=== PATIENT | male | born 1950 | race African-American/Black ===

== ENCOUNTER 2017-03-14 08:05 | Inpatient (IN) | payer MEDICARE ==
[~2017-03-14] VITALS: Ht 182.9 cm; Wt 98.7 kg
[2017-03-14] MEDS ORDERED: multivitamin (08:23)
[2017-03-14] MEDS ORDERED: omega 3 (08:23)
[2017-03-14] MEDS ORDERED: ASPI81TA2 PO (08:23)
[2017-03-14] MEDS ORDERED: [UNRECOGNIZED DRUG - OTHER] (08:23)
--- NOTE | 2017-03-14 08:41 | PHYS DOC ---
Past Medical History Past Medical History: CAD, COPD, Hypertension Past Surgical History: Coronary Bypass Surgery Alcohol Use: None Drug Use: None Adult General Chief Complaint Chief Complaint: LOWER EXTREMITY SWELLING HPI HPI Patient is a 66 year old male who presents with family for bilateral lower extremity swelling over the past 2.5 weeks gradually worsening. States he also has exertional dyspnea and orthopnea worse over the same time period. He has slight resting dyspnea as well. States his swelling does not improve with laying in bed or leg elevation, but he does not frequently elevate his legs. States he has not followed regularly with a doctor for over 3 years and has not had an echocardiogram or seen a high tension tester in multiple years since CABG. Not currently taking antihypertensives. He denies chest pain, palpitations, diaphoresis, nausea or vomiting, fever or chills, numbness, tingling, weakness. He denies leg pain, cough, hemoptysis, injury. Review of Systems Review of Systems Constitutional: Denies fever or chills [] Eyes: Denies change in visual acuity, redness, or eye pain [] HENT: Denies nasal congestion or sore throat [] Respiratory: Denies cough [] Cardiovascular: No additional information not addressed in HPI [] GI: Denies abdominal pain, nausea, vomiting, bloody stools or diarrhea [] : Denies dysuria or hematuria [] Musculoskeletal: Denies back pain or joint pain [] Integument: Denies rash or skin lesions [] Neurologic: Denies headache, focal weakness or sensory changes [] Endocrine: Denies polyuria or polydipsia [] Current Medications Current Medications Allergies Allergies Allergies Coded Allergies Type Severity Reaction Last Updated Verified No Known Drug Allergies 03/14/17 No Physical Exam Physical Exam Constitutional: Well developed, well nourished, no acute distress, non-toxic appearance. [] HENT: Normocephalic, atraumatic, bilateral external ears normal, oropharynx moist, nose normal. [] Eyes: PERRLA, EOMI. [] Neck: Normal range of motion, supple. [] Cardiovascular: Regular tachycardia [] Lungs & Thorax: Mild bibasilar crackles and increased respiratory rate, no wheezing, speaking in full sentences [] Abdomen: Bowel sounds normal, soft, no tenderness. [] Skin: Warm, dry, no erythema, no rash. [] Back: No tenderness, no CVA tenderness. [] Extremities: No tenderness, ROM intact, 3+ bilateral lower extremity edema through thighs. [] Neurologic: Alert and oriented X 3, normal motor function, normal sensory function, no focal deficits noted. [] Psychologic: Affect normal, judgement normal, mood normal. [] Current Patient Data Vital Signs Vital Signs Date Time Temp Pulse Resp B/P Pulse Ox O2 Delivery O2 Flow Rate FiO2 03/14/17 08:11 97.6 121 20 150/93 97 Room Air 97.6 Lab Values Laboratory Tests Test 03/14/17 08:17 White Blood Count 5.1x10^3/uL (4.0-11.0) Red Blood Count 4.62x10^6/uL (4.30-5.70) Hemoglobin 14.3g/dL (13.0-17.5) Hematocrit 42.9% (39.0-53.0) Mean Corpuscular Volume 93fL (79-100) Mean Corpuscular Hemoglobin 31pg (25-35) Mean Corpuscular Hemoglobin Concent 33g/dL (31-37) Red Cell Distribution Width 16.4% (11.5-14.5) H Platelet Count 329x10^3/uL (140-400) Neutrophils (%) (Auto) 50% (31-73) Lymphocytes (%) (Auto) 38% (24-48) Monocytes (%) (Auto) 10% (0-9) H Eosinophils (%) (Auto) 1% (0-3) Basophils (%) (Auto) 1% (0-3) Neutrophils # (Auto) 2.5x10^3uL (1.8-7.7) Lymphocytes # (Auto) 1.9x10^3/uL (1.0-4.8) Monocytes # (Auto) 0.5x10^3/uL (0.0-1.1) Eosinophils # (Auto) 0.1x10^3/uL (0.0-0.7) Basophils # (Auto) 0.0x10^3/uL (0.0-0.2) Sodium Level 138mmol/L (136-145) Potassium Level 3.8mmol/L (3.5-5.1) Chloride Level 104mmol/L (98-107) Carbon Dioxide Level 28mmol/L (21-32) Anion Gap 6 (6-14) Blood Urea Nitrogen 18mg/dL (8-26) Creatinine 1.1mg/dL (0.7-1.3) Estimated GFR (Cockcroft-Gault) 66.6 Glucose Level 102mg/dL (70-99) H Calcium Level 8.9mg/dL (8.5-10.1) Total Bilirubin 0.4mg/dL (0.2-1.0) Direct Bilirubin 0.2mg/dL (0.0-0.2) Aspartate Amino Transferase (AST) 33U/L (15-37) Alanine Aminotransferase (ALT) 48U/L (16-63) Alkaline Phosphatase 57U/L (46-116) YJ-Tsf-D-Type Natriuretic Peptide 6047pg/mL (0-124) H Total Protein 7.0g/dL (6.4-8.2) Albumin 3.0g/dL (3.4-5.0) L Laboratory Tests 03/14/17 08:17 Laboratory Tests 03/14/17 08:17 EKG EKG EKG as interpreted by me as sinus tachycardia with interventricular block, rate 103, no ST-T changes, LA 174, QTc 474, no ectopy Radiology/Procedures Radiology/Procedures Chest x-ray as interpreted by me showing cardiomegaly and mild pulmonary vascular congestion bilaterally, no effusions or focal infiltrates Course & Med Decision Making Course & Med Decision Making Pertinent Labs and Imaging studies reviewed. (See chart for details) Has elevated proBNP and low albumin suggestive of multifactorial swelling, but highest concern is for undiagnosed CHF with exacerbation. Will admit for further workup and treatment. Discussed case with Dr. Salmon, who will admit. Cardiology consult placed. Warren Disclaimer Dragon Disclaimer This electronic medical record was generated, in whole or in part, using a voice recognition dictation system. Departure Departure Impression: Primary Impression: CHF exacerbation Disposition: ADMITTED INPATIENT Condition: STABLE Problem Qualifiers Primary Impression: CHF exacerbation Congestive heart failure type: unspecified congestive heart failure type Qualified Code: I50.9 - Heart failure, unspecified Albina GAMEZ MD Mar 14, 2017 08:41
[2017-03-14 08:49] LABS: CALCIUM 8.9 mg/dL (8.5-10.1); CREATININE 1.1 mg/dL (0.7-1.3); GFR 66.6; POTASSIUM 3.8 mmol/L (3.5-5.1)
--- NOTE | 2017-03-14 08:49 | RAD ---
2 view CXR: Clinical indications: Dyspnea. Lower extremity swelling of the groin for 2 weeks. Worsening last week. History of COPD and hypertension and smoking. Comparison: December 19, 2007.. Findings: No acute lung infiltrate or pleural effusion or pulmonary edema or lung mass or pneumothorax is seen. The heart size has increased in size. Sternotomy has been performed in the interim. The pulmonary vasculature, mediastinum and both kin are unremarkable. The osseous structures appear intact. Impression: Increase in heart size. No acute lung infiltrate..
--- NOTE | 2017-03-14 08:52 | EKG ---
[facility] [address] [place] [address] Test Date: 2017-03-14 Test Time: 08:26:41 Pat Name: JOCY BOWEN Department: Room: Gender: Manager Call Center: : [id number] Requested By: Albina GAMEZ Order Number: [id number] Reading MD: Adolfo Cole Measurements Intervals [place] Rate: 103 P: 51 NH: 174 QRS: -57 QRSD: 130 T: 104 QT: 360 QTc: 474 Interpretive Statements SINUS TACHYCARDIA ABNORMAL LEFT AXIS DEVIATION lafb Electronically Signed On 03-17-2017 9:53:35 CDT by Adolfo Cole
[2017-03-14 08:56] LABS: BASO % 1 % (0-3); DIRECT BILIRUBIN 0.2 mg/dL (0.0-0.2); EOS % 1 % (0-3); HEMATOCRIT 42.9 % (39.0-53.0); HEMOGLOBIN 14.3 g/dL (13.0-17.5); LYMPH # 1.9 x10^3/uL (1.0-4.8); LYMPH % 38 % (24-48); MEAN CORPUSCULAR HEMOGLOBIN 31 pg (25-35); MEAN CORPUSCULAR HGB CONC 33 g/dL (31-37); MEAN CORPUSCULAR VOLUME 93 fL (79-100); MONO % 10 % (0-9); NEUT % 50 % (31-73); PLATELET COUNT 329 x10^3/uL (140-400); RED BLOOD COUNT 4.62 x10^6/uL (4.30-5.70); RED CELL DISTRIBUTION WIDTH 16.4 % (11.5-14.5); TOTAL BILIRUBIN 0.4 mg/dL (0.2-1.0); WHITE BLOOD COUNT 5.1 x10^3/uL (4.0-11.0)
[2017-03-14] MEDS ORDERED: ONDANSETRON PF 4 MG/2 ML VIAL. IV PRN ×2 (09:30→10:30)
[2017-03-14] MEDS ORDERED: fentaNYL PF VIAL 100 MCG/2 ML VIAL IV PRN (09:30)
[2017-03-14] MEDS ORDERED: ACETAMINOPHEN 325 MG TABLET. PO PRN ×2 (09:30→10:30)
[2017-03-14] MEDS ORDERED: FUROSEMIDE 20 MG/2 ML VIAL. IVP ONE (09:30)
--- NOTE | 2017-03-14 10:27 | PDOC1 ---
History and Physical Current Problem List Problem List Problems Medical Problems: (1) CHF exacerbation Status: Acute Current Medications Current Medications Current Medications Medications (Trade) Dose Ordered Sig/Ssuu Start Time Stop Time Status Last Admin Dose Admin Acetaminophen (Tylenol) 650 mg PRN Q4HRS PRN 03/14/17 09:30 03/15/17 09:29 Fentanyl Citrate (Fentanyl 2ml Vial) 50 mcg PRN Q2HR PRN 03/14/17 09:30 03/15/17 09:29 Furosemide (Lasix) 20 mg 1X ONCE 03/14/17 09:30 03/14/17 09:31 DC 03/14/17 09:37 20 MG Ondansetron HCl (Zofran) 4 mg PRN Q8HRS PRN 03/14/17 09:30 03/15/17 09:29 Allergies Allergies Allergies Coded Allergies Type Severity Reaction Last Updated Verified No Known Drug Allergies 03/14/17 No ROS Review of System CONSTITUTIONAL: No fever or chills EYES: No recent changes SKIN: No rash or itching CARDIOVASCULAR: sob and edema RESPIRATORY: No SOB or cough GASTROINTESTINAL: No nausea, vomiting or abdominal pain NEUROLOGICAL: No headaches or weakness ENDOCRINE: No cold or heat intolerance GENITOURINARY: No urgency or frequency of urination MUSCULOSKELETAL: No back pain or joint pain LYMPHATICS: No enlarged lymph nodes PSYCHIATRIC: No anxiety or depression Physical Exam Physical Exam GEN.: No apparent distress. Alert and oriented. HEENT: Head is normocephalic, atraumatic NECK: Supple. no lymphadenopathy LUNGS: Clear to auscultation. normal airflow HEART: RRR, S1, S2 present. Peripheral pulses intact ABDOMEN: Soft, nontender. Positive bowel sounds. EXTREMITIES: + 3 edema, extended to abdomen and testicle NEUROLOGIC: Normal speech, normal tone PSYCHIATRIC: Normal affect, normal mood. SKIN: dry, Vitals Vitals Vital Signs Date Time Temp Pulse Resp B/P Pulse Ox O2 Delivery O2 Flow Rate FiO2 03/14/17 08:11 97.6 121 20 150/93 97 Room Air 97.6 Labs Labs Laboratory Tests Test 03/14/17 08:17 White Blood Count 5.1x10^3/uL (4.0-11.0) Red Blood Count 4.62x10^6/uL (4.30-5.70) Hemoglobin 14.3g/dL (13.0-17.5) Hematocrit 42.9% (39.0-53.0) Mean Corpuscular Volume 93fL (79-100) Mean Corpuscular Hemoglobin 31pg (25-35) Mean Corpuscular Hemoglobin Concent 33g/dL (31-37) Red Cell Distribution Width 16.4% (11.5-14.5) Platelet Count 329x10^3/uL (140-400) Neutrophils (%) (Auto) 50% (31-73) Lymphocytes (%) (Auto) 38% (24-48) Monocytes (%) (Auto) 10% (0-9) Eosinophils (%) (Auto) 1% (0-3) Basophils (%) (Auto) 1% (0-3) Neutrophils # (Auto) 2.5x10^3uL (1.8-7.7) Lymphocytes # (Auto) 1.9x10^3/uL (1.0-4.8) Monocytes # (Auto) 0.5x10^3/uL (0.0-1.1) Eosinophils # (Auto) 0.1x10^3/uL (0.0-0.7) Basophils # (Auto) 0.0x10^3/uL (0.0-0.2) Sodium Level 138mmol/L (136-145) Potassium Level 3.8mmol/L (3.5-5.1) Chloride Level 104mmol/L (98-107) Carbon Dioxide Level 28mmol/L (21-32) Anion Gap 6 (6-14) Blood Urea Nitrogen 18mg/dL (8-26) Creatinine 1.1mg/dL (0.7-1.3) Estimated GFR (Cockcroft-Gault) 66.6 Glucose Level 102mg/dL (70-99) Calcium Level 8.9mg/dL (8.5-10.1) Total Bilirubin 0.4mg/dL (0.2-1.0) Direct Bilirubin 0.2mg/dL (0.0-0.2) Aspartate Amino Transf (AST/SGOT) 33U/L (15-37) Alanine Aminotransferase (ALT/SGPT) 48U/L (16-63) Alkaline Phosphatase 57U/L (46-116) SM-Pbe-J-Type Natriuretic Peptide 6047pg/mL (0-124) Total Protein 7.0g/dL (6.4-8.2) Albumin 3.0g/dL (3.4-5.0) Laboratory Tests Test 03/14/17 08:17 White Blood Count 5.1x10^3/uL (4.0-11.0) Red Blood Count 4.62x10^6/uL (4.30-5.70) Hemoglobin 14.3g/dL (13.0-17.5) Hematocrit 42.9% (39.0-53.0) Mean Corpuscular Volume 93fL (79-100) Mean Corpuscular Hemoglobin 31pg (25-35) Mean Corpuscular Hemoglobin Concent 33g/dL (31-37) Red Cell Distribution Width 16.4% (11.5-14.5) Platelet Count 329x10^3/uL (140-400) Neutrophils (%) (Auto) 50% (31-73) Lymphocytes (%) (Auto) 38% (24-48) Monocytes (%) (Auto) 10% (0-9) Eosinophils (%) (Auto) 1% (0-3) Basophils (%) (Auto) 1% (0-3) Neutrophils # (Auto) 2.5x10^3uL (1.8-7.7) Lymphocytes # (Auto) 1.9x10^3/uL (1.0-4.8) Monocytes # (Auto) 0.5x10^3/uL (0.0-1.1) Eosinophils # (Auto) 0.1x10^3/uL (0.0-0.7) Basophils # (Auto) 0.0x10^3/uL (0.0-0.2) Sodium Level 138mmol/L (136-145) Potassium Level 3.8mmol/L (3.5-5.1) Chloride Level 104mmol/L (98-107) Carbon Dioxide Level 28mmol/L (21-32) Anion Gap 6 (6-14) Blood Urea Nitrogen 18mg/dL (8-26) Creatinine 1.1mg/dL (0.7-1.3) Estimated GFR (Cockcroft-Gault) 66.6 Glucose Level 102mg/dL (70-99) Calcium Level 8.9mg/dL (8.5-10.1) Total Bilirubin 0.4mg/dL (0.2-1.0) Direct Bilirubin 0.2mg/dL (0.0-0.2) Aspartate Amino Transf (AST/SGOT) 33U/L (15-37) Alanine Aminotransferase (ALT/SGPT) 48U/L (16-63) Alkaline Phosphatase 57U/L (46-116) SI-Eqr-B-Type Natriuretic Peptide 6047pg/mL (0-124) Total Protein 7.0g/dL (6.4-8.2) Albumin 3.0g/dL (3.4-5.0) VTE Prophylaxis Ordered VTE Prophylaxis Devices: Yes VTE Pharmacological Prophylaxi: Yes REBECCA HELLER MD Mar 14, 2017 10:26
[2017-03-14] MEDS ORDERED: ALBUTEROL SULFATE 2.5 MG/3 ML NEBU. NEB PRN (10:30)
[2017-03-14] MEDS ORDERED: HYDROcodone/APAP 5/325MG 1 TAB TABLET PO PRN (10:30)
[2017-03-14] MEDS ORDERED: hydrALAZINE 20 MG/ML VIAL. IVP PRN (10:30)
[2017-03-14] MEDS ORDERED: METOPROLOL SUCC 24HR ER 25 MG TAB.ER.24H. PO ONE (11:00)
--- NOTE | 2017-03-14 11:01 | PDOC2 ---
CARDIOLOGY CONSULT NOTE CHEIF COMPLAINT: Swelling in legs Problems: HPI: 66 y.o male with pmhx as noted below presenting for lower ext edema. Last 3 months he has has progressive lower ext edema that has now progressed to testicles. He denies any chest pain but does have exertional dyspnea, NYHA class 2-3. Denies any syncope or palpitations. Reports that he has not seen a epitaxial reactor operator or PCP for several years. PMHX: CAD s/p CABG in 2009 SOCHX: Lives by himself, but lives separately from No alcohol, tob or illicits. He is employed FAMHX: [place] CURRENT MEDS: No home CV meds. ALLERGIES: Allergies Coded Allergies Type Severity Reaction Last Updated Verified No Known Drug Allergies 03/14/17 No ROS: Negative for 08/28 systems reviewed unless otherwise noted above in HPI. PHYSICAL EXAM: Vital Signs: Vital Signs Date Time Temp Pulse Resp B/P Pulse Ox O2 Delivery O2 Flow Rate FiO2 03/14/17 08:11 97.6 121 20 150/93 97 Room Air 97.6 Physical Exam: Gen: A/O x 3. CVS: Tachycardia, no m/r/g PULM: Tachypneic, no sign rales ABD: Obese, NT/ND +BS EXT: 3+ pitting edema from the ankle to the hips Swollen testicles Non focal neuro exam. normal mood and affect. DIAGNOSTIC TESTIN. SR with LAFB BNP > 6000 ASSESSMENT: 1. Acute decompensated systolic and diastolic HF. 2. CAD s/p CABG PLAN: -Continue aggressive diuresis. -He has adequate perfusion based on exam and vitals -Check echo, depending on results, will likely need heart cath. -Start low dose Toprol XL for now, initiate ho-inh in a.m after diuresis and monitoring of renal function. Will follow. Discussed issues with patient and family. TABATHA CARRIZALES MD Mar 14, 2017 11:01
[2017-03-14 11:26] VITALS: BP 138/93
[2017-03-14] MEDS ORDERED: FUROSEMIDE 40 MG/4 ML VIAL. IVP ONE (14:00)
[2017-03-14 14:54] VITALS: BP 119/80
[2017-03-14] MEDS: ENOXAPARIN 40 MG/0.4 ML SYRINGE. SQ SCH (15:18)
--- NOTE | 2017-03-14 18:09 | HP ---
ADMIT DATE: 03/14/2017 CHIEF COMPLAINT: Bilateral lower extremity swelling. HISTORY OF PRESENT ILLNESS: A 66-year-old -[place] male patient with prior history of coronary artery disease and CABG who presented to the ER with complaints of progressive swelling of bilateral lower extremities. Symptoms started a few weeks ago. However, for last 2 weeks, symptoms are gradually getting worse associated with exertional dyspnea and orthopnea. This swelling extended from bilateral lower extremities, feet to testicles and the abdomen. The patient has never seen a doctor for nearly 3 years and previously was diagnosed with coronary artery disease, CABG. Later, he did not see any doctors. He denies any chest pain, syncope, or palpitations. The patient received IV Lasix in the ER. His symptoms improved, and his initial EKG did not show any acute ST-T wave changes. PAST MEDICAL HISTORY: Coronary artery disease, COPD, hypertension, and CABG. PERSONAL HISTORY: Lives by himself, . No smoking, no alcohol, no drug abuse. FAMILY HISTORY: Unknown to the patient. ALLERGIES: NKDA. REVIEW OF SYSTEMS: Please see my electronic H and P. PHYSICAL EXAMINATION: Please see my electronic H and P. LABORATORY DATA: Chemistry within normal limits. BNP is 6047. Hematology: CBC within normal limits. IMAGING STUDIES: Chest x-ray: Increase in heart size and no acute findings seen. EKG was personally reviewed. Tachycardia. No acute ST-T wave changes seen. ASSESSMENT AND PLAN: 1. Suspected acute systolic congestive heart failure. 2. History of coronary artery disease and hypertension. PLAN: 1. The patient has been admitted to the hospital for cardiac workup. We will give him IV Lasix and continue IV Lasix daily. 2. Monitor intake and output. 3. Replace electrolytes, especially potassium and magnesium. 4. Daily weights. 5. Cardiology has been consulted and echocardiogram in the a.m. 6. Possible cardiac catheterization once medical symptoms improve. 7. He has been started on metoprolol. 8. P.r.n. breathing treatments. 9. Deep venous thrombosis prophylaxis with Lovenox. 10. Physical therapy and occupational therapy. REBECCA HELLER MD DR: JEFFREY/shayne JOB#: [id number] / [id number] MTDD
[2017-03-14 20:10] VITALS: BP 121/74
[2017-03-14 23:45] VITALS: BP 113/75
[2017-03-15 03:50] VITALS: BP 112/78
[2017-03-15 07:26] LABS: BASO % 1 % (0-3); EOS % 1 % (0-3); HEMATOCRIT 39.6 % (39.0-53.0); HEMOGLOBIN 13.1 g/dL (13.0-17.5); LYMPH # 1.3 x10^3/uL (1.0-4.8); LYMPH % 28 % (24-48); MEAN CORPUSCULAR HEMOGLOBIN 31 pg (25-35); MEAN CORPUSCULAR HGB CONC 33 g/dL (31-37); MEAN CORPUSCULAR VOLUME 94 fL (79-100); MONO % 10 % (0-9); NEUT % 60 % (31-73); PLATELET COUNT 279 x10^3/uL (140-400); RED BLOOD COUNT 4.22 x10^6/uL (4.30-5.70); RED CELL DISTRIBUTION WIDTH 15.9 % (11.5-14.5); WHITE BLOOD COUNT 4.7 x10^3/uL (4.0-11.0)
[2017-03-15 07:50] VITALS: BP 104/65
[2017-03-15 07:51] LABS: CALCIUM 8.9 mg/dL (8.5-10.1); CREATININE 1.1 mg/dL (0.7-1.3); GFR 80.5; POTASSIUM 3.8 mmol/L (3.5-5.1)
--- NOTE | 2017-03-15 08:15 | ACF ---
Admission Forms Criteria HEART FAILURE Clinical Indications for Admission to Inpatient Care (Place 'X' for any and all applicable criteria): Admission is indicated by ANY ONE of the following(1)(2)(3)(4): [ ]I. Severe electrolyte abnormalities requiring inpatient care(9) [ ]II. Hemodynamic instability [ ]III. Anasarca [ ]IV. Acute cardiac ischemia causing or associated with failure (Also use Angina or Myocardial Infarction as appropriate) [ ]V. Cardiac arrhythmias of immediate concern [ ]. Precipitating cause for acute decompensation (eg, pneumonia, pulmonary embolism) requires inpatient care [ ]VII. Pulmonary edema that is very severe (eg, mechanical ventilation needed, imminent or likely, need for 100% oxygen to keep oxygen saturation above 90%) [ ]VIII. Inpatient admission required rather than observation care (Also use Heart Failure: Observation Care as appropriate) because of ANY ONE of the following: [ ]a) Pulmonary edema that is severe or worsening as indicated by ALL of the following: [ ]i) New need for oxygen therapy to keep oxygen saturation above 90% (or increased FiO2 need from baseline) [ ]ii) Has not improved sufficiently with emergency department or observation care IV diuretics or other heart failure treatments[C] [ ]b) Cognitive impairment that is severe or persistent [ ]c) Increased creatinine (new on laboratory test) with reduction of more than 50% in estimated glomerular filtration rate from baseline. [ ]d) Acute renal insufficiency (progressively (ongoing) rising creatinine (known from past laboratory test) with reduction of more than 25% in estimated glomerular filtration rate from baseline) [ ]e) Acute peripheral ischemia (eg, pulseless, cool, mottled, or cyanotic extremity) [ ]f) Acute renal failure [ ]g) Supplemental O2 or respiratory treatment for >24 hr that are performable only in acute inpatient setting [ ]h) Pulmonary artery catheter monitoring [ ]i) Other condition, treatment or monitoring requiring inpatient admission [X]IX. Contraindications and/or Inappropriate clinical situations for Observational Care in patients with Heart Failure, when ANY ONE of the following is required: [ ]a) Patient with High risk of cardiac embolism (e.g, patients with previous cardiac embolism, LVEF < 40%, age >75 and patients with prosthetic valve) 18 [ ]b) Patient with Moderate risk including DM patient, CAD and patient aged 65-75 [ ]c) Patient with any change in cardiac biomarker especially troponin should be managed as high risk in an inpatient setting 19 [ ]d) Physician judgement irrespective of ECG and other diagnostic findings 20 [ ]e) Patients with hyponatremia have high risk for mortality and require more extensive care and length of stay 21 [X]f) Need for large volume diuresis 21 [ ]g) Presence of renal insufficiency or hypotension limiting speed of diuresis 21 [ ]h) Acute cardiac Ischemia in the elderly 21 [ ]i) Patients with a 30 day risk of mortality based on a multidimensional prognostic index (MPI) [J,]21 [ ]X. General contraindications and/or Inappropriate clinical situations for Observational Care in patients with Heart Failure, when ANY ONE of the following is required: [ ]a) Prediction of prolongation of LOS based on ANY ONE of the following may be considered as a contraindication for observational care 2, 3, 4, 5, 6, 7, 8 , 9, 10, 11 [ ]i) Age > 65 yrs. [ ]ii) Patient arriving by ambulance [ ]iii) Patient with high acuity [ ]iv) Patient requiring vital sign monitoring [ ]v) Patient on IV medication [ ]b) Systolic blood pressures 180mmHg 3,12 [ ]c) Patient with altered mental status including delirium and other alteration of consciousness, (3) [ ]d) Patient whose discharge disposition will be to a [place] [facility] home or rehabilitation home should not be managed in Emergency Department Observation Unit. CMS rule requires 3 days hospital stay before such placement.3,13 [ ]e) Patient with failure to thrive due to broad array of etiologies 3,16,17 [ ]f) Inability to ambulate 3,14 Extended stay beyond goal length of stay may be needed for(1)(3)(21)(25): [ ]a) Cardiac ischemia, confirmed or suspected as precipitant [ ]b) Cardiogenic shock or refractory pulmonary edema [ ]c) Acute kidney injury or renal failure [ ]d) Respiratory failure (eg, need for noninvasive or invasive mechanical ventilation) (23) [ ]e) Concomitant pneumonia or significant electrolyte abnormality (eg, severe hyponatremia) [ ]f) Newly diagnosed (new onset) atrial fibrillation [ ]g) Stage IV chronic kidney disease (estimated glomerular filtration rate of less than 30 mL/min/1.73m2 (0.50 mL/sec/1.73m2), and not previously on chronic dialysis The original [facility] content created by [facility] has been revised. The portions of the content which have been revised are identified through the use of italic text or in bold, and [facility] has neither reviewed nor approved the modified material. All other unmodified content is copyright [facility]. Please see references footnoted in the original [facility] edition 2016 Admission Criteria Met?: Yes ANNA URENA March 15, 2017 08:15
[2017-03-15] MEDS: METOPROLOL SUCC 24HR ER 25 MG TAB.ER.24H. PO SCH (09:29)
[2017-03-15] MEDS: FUROSEMIDE 40 MG/4 ML VIAL. IVP SCH (09:29)
--- NOTE | 2017-03-15 10:06 | PDOC ---
ZAC SANFORD ELECTRICAL PROSPECTOR 03/15/17 1006: CARDIO Progress Notes Date and Time Date of Service 03/15/2017 Time of Evaluation 1000 Subjective Subjective: No Chest Pain, No shortness of breath, No Palpitations, No Dizziness, Other (SOA better, feels better today) Vitals Vitals Vital Signs Date Time Temp Pulse Resp B/P Pulse Ox O2 Delivery O2 Flow Rate FiO2 03/15/17 09:29 80 104/65 03/15/17 08:15 Room Air 03/15/17 07:50 98.6 17 96 98.6 Weight Weight [ ] Input and Output Intake and Output Intake and Output 03/15/17 07:00 Intake Total 1550 ml Output Total 4750 ml Balance -3200 ml Intake Oral 1550 ml Output Urine Total 4750 ml # Voids 1 Laboratory Labs Laboratory Tests Test 03/15/17 07:00 White Blood Count 4.7x10^3/uL (4.0-11.0) Red Blood Count 4.22x10^6/uL (4.30-5.70) Hemoglobin 13.1g/dL (13.0-17.5) Hematocrit 39.6% (39.0-53.0) Mean Corpuscular Volume 94fL (79-100) Mean Corpuscular Hemoglobin 31pg (25-35) Mean Corpuscular Hemoglobin Concent 33g/dL (31-37) Red Cell Distribution Width 15.9% (11.5-14.5) Platelet Count 279x10^3/uL (140-400) Neutrophils (%) (Auto) 60% (31-73) Lymphocytes (%) (Auto) 28% (24-48) Monocytes (%) (Auto) 10% (0-9) Eosinophils (%) (Auto) 1% (0-3) Basophils (%) (Auto) 1% (0-3) Neutrophils # (Auto) 2.8x10^3uL (1.8-7.7) Lymphocytes # (Auto) 1.3x10^3/uL (1.0-4.8) Monocytes # (Auto) 0.5x10^3/uL (0.0-1.1) Eosinophils # (Auto) 0.1x10^3/uL (0.0-0.7) Basophils # (Auto) 0.0x10^3/uL (0.0-0.2) Sodium Level 141mmol/L (136-145) Potassium Level 3.8mmol/L (3.5-5.1) Chloride Level 105mmol/L (98-107) Carbon Dioxide Level 29mmol/L (21-32) Anion Gap 7 (6-14) Blood Urea Nitrogen 16mg/dL (8-26) Creatinine 1.1mg/dL (0.7-1.3) Estimated GFR (Cockcroft-Gault) 80.5 Glucose Level 124mg/dL (70-99) Calcium Level 8.9mg/dL (8.5-10.1) Physical Exam HEENT: Neck Supple W Full Motion Chest: Symmetric LUNGS: Other (diminsihed bases with crackles) Heart: S1S2, RRR (SR with PVCs and PACs), other (distant heart sounds) Abdomen: Soft N/T Extremities: No Calf Tenderness, Other (3-4+ bilateral LE pitting edema) Neurology: alert, oriented, follow commands Assessment Assessment 1. Acute on chronic combined systolic/diastolic CHF: symptoms improved 2. CAD: CABG in the past. CP free. No recent stress test and cardiology follow ups. 3. AECOPD: no inhalers, per PCP 4. HTN: controlled 5. Likely poor compliance: has not seen tar heel for about >3 yrs Recommendations 1. Plan to convert to PO lasix tomorrow 2. Toprol started. Will reeval for ACEi tomorrow 3. Lipids, TSH, troponin 4. Further recommendation pending TTE result 5. Restart ASA. 6. Will consider for ischemic worup inpt vs outpt. pending other testings. TABATHA CARRIZALES MD 03/15/17 2228: CARDIO Progress Notes Plan Plan Pt. seen and examined. Agree with above HAT BRIM CURLER note. No acute events. Persistent edema. Echo with severe LV dysfunction. Will plan for cath in a.m. Discussed r/b/a with patient and family, he wishes to proceed. ZAC SANFORD APRN March 15, 2017 10:06 TABATHA CARRIZALES MD March 15, 2017 22:28
[2017-03-15 12:03] VITALS: BP 105/65
--- NOTE | 2017-03-15 12:55 | PDOC ---
PROGRESS NOTES Chief Complaint Chief Complaint 1. acute systolic congestive heart failure. 2. History of coronary artery disease post CABG 3. htn 4. COPD plan: FU WITH Card echo pending on lasix 40mg iv daily for now pt has no PCP, dr. Frank info given daily weight, check in and out dvt ppx History of Present Illness History of Present Illness mild exertional sob bl leg edema Vitals Vitals Vital Signs Date Time Temp Pulse Resp B/P Pulse Ox O2 Delivery O2 Flow Rate FiO2 03/15/17 12:03 98.4 55 17 105/65 96 Room Air 98.4 Physical Exam General: Alert, Oriented X3, Cooperative Heart: Regular rate, Normal S1, Normal S2 Lungs: Crackles (bl mild) Extremities: No clubbing, No cyanosis, Other (bl leg 3 + edema) Skin: No breakdown Labs LABS Laboratory Tests Test 03/15/17 07:00 White Blood Count 4.7x10^3/uL (4.0-11.0) Red Blood Count 4.22x10^6/uL (4.30-5.70) Hemoglobin 13.1g/dL (13.0-17.5) Hematocrit 39.6% (39.0-53.0) Mean Corpuscular Volume 94fL (79-100) Mean Corpuscular Hemoglobin 31pg (25-35) Mean Corpuscular Hemoglobin Concent 33g/dL (31-37) Red Cell Distribution Width 15.9% (11.5-14.5) Platelet Count 279x10^3/uL (140-400) Neutrophils (%) (Auto) 60% (31-73) Lymphocytes (%) (Auto) 28% (24-48) Monocytes (%) (Auto) 10% (0-9) Eosinophils (%) (Auto) 1% (0-3) Basophils (%) (Auto) 1% (0-3) Neutrophils # (Auto) 2.8x10^3uL (1.8-7.7) Lymphocytes # (Auto) 1.3x10^3/uL (1.0-4.8) Monocytes # (Auto) 0.5x10^3/uL (0.0-1.1) Eosinophils # (Auto) 0.1x10^3/uL (0.0-0.7) Basophils # (Auto) 0.0x10^3/uL (0.0-0.2) Sodium Level 141mmol/L (136-145) Potassium Level 3.8mmol/L (3.5-5.1) Chloride Level 105mmol/L (98-107) Carbon Dioxide Level 29mmol/L (21-32) Anion Gap 7 (6-14) Blood Urea Nitrogen 16mg/dL (8-26) Creatinine 1.1mg/dL (0.7-1.3) Estimated GFR (Cockcroft-Gault) 80.5 Glucose Level 124mg/dL (70-99) Calcium Level 8.9mg/dL (8.5-10.1) Review of Systems Review of Systems no fever, chills, chest pain Assessment and Plan Assessmemt and Plan Problems Medical Problems: (1) CHF exacerbation Status: Acute Problems: Comment Review of Relevant I have reviewed the following items rell (where applicable) has been applied. Labs Laboratory Tests Test 03/14/17 08:17 03/15/17 07:00 White Blood Count 5.1x10^3/uL (4.0-11.0) 4.7x10^3/uL (4.0-11.0) Red Blood Count 4.62x10^6/uL (4.30-5.70) 4.22x10^6/uL (4.30-5.70) Hemoglobin 14.3g/dL (13.0-17.5) 13.1g/dL (13.0-17.5) Hematocrit 42.9% (39.0-53.0) 39.6% (39.0-53.0) Mean Corpuscular Volume 93fL (79-100) 94fL (79-100) Mean Corpuscular Hemoglobin 31pg (25-35) 31pg (25-35) Mean Corpuscular Hemoglobin Concent 33g/dL (31-37) 33g/dL (31-37) Red Cell Distribution Width 16.4% (11.5-14.5) 15.9% (11.5-14.5) Platelet Count 329x10^3/uL (140-400) 279x10^3/uL (140-400) Neutrophils (%) (Auto) 50% (31-73) 60% (31-73) Lymphocytes (%) (Auto) 38% (24-48) 28% (24-48) Monocytes (%) (Auto) 10% (0-9) 10% (0-9) Eosinophils (%) (Auto) 1% (0-3) 1% (0-3) Basophils (%) (Auto) 1% (0-3) 1% (0-3) Neutrophils # (Auto) 2.5x10^3uL (1.8-7.7) 2.8x10^3uL (1.8-7.7) Lymphocytes # (Auto) 1.9x10^3/uL (1.0-4.8) 1.3x10^3/uL (1.0-4.8) Monocytes # (Auto) 0.5x10^3/uL (0.0-1.1) 0.5x10^3/uL (0.0-1.1) Eosinophils # (Auto) 0.1x10^3/uL (0.0-0.7) 0.1x10^3/uL (0.0-0.7) Basophils # (Auto) 0.0x10^3/uL (0.0-0.2) 0.0x10^3/uL (0.0-0.2) Sodium Level 138mmol/L (136-145) 141mmol/L (136-145) Potassium Level 3.8mmol/L (3.5-5.1) 3.8mmol/L (3.5-5.1) Chloride Level 104mmol/L (98-107) 105mmol/L (98-107) Carbon Dioxide Level 28mmol/L (21-32) 29mmol/L (21-32) Anion Gap 6 (6-14) 7 (6-14) Blood Urea Nitrogen 18mg/dL (8-26) 16mg/dL (8-26) Creatinine 1.1mg/dL (0.7-1.3) 1.1mg/dL (0.7-1.3) Estimated GFR (Cockcroft-Gault) 66.6 80.5 Glucose Level 102mg/dL (70-99) 124mg/dL (70-99) Calcium Level 8.9mg/dL (8.5-10.1) 8.9mg/dL (8.5-10.1) Total Bilirubin 0.4mg/dL (0.2-1.0) Direct Bilirubin 0.2mg/dL (0.0-0.2) Aspartate Amino Transf (AST/SGOT) 33U/L (15-37) Alanine Aminotransferase (ALT/SGPT) 48U/L (16-63) Alkaline Phosphatase 57U/L (46-116) UL-Nhy-K-Type Natriuretic Peptide 6047pg/mL (0-124) Total Protein 7.0g/dL (6.4-8.2) Albumin 3.0g/dL (3.4-5.0) Laboratory Tests Test 03/15/17 07:00 White Blood Count 4.7x10^3/uL (4.0-11.0) Red Blood Count 4.22x10^6/uL (4.30-5.70) Hemoglobin 13.1g/dL (13.0-17.5) Hematocrit 39.6% (39.0-53.0) Mean Corpuscular Volume 94fL (79-100) Mean Corpuscular Hemoglobin 31pg (25-35) Mean Corpuscular Hemoglobin Concent 33g/dL (31-37) Red Cell Distribution Width 15.9% (11.5-14.5) Platelet Count 279x10^3/uL (140-400) Neutrophils (%) (Auto) 60% (31-73) Lymphocytes (%) (Auto) 28% (24-48) Monocytes (%) (Auto) 10% (0-9) Eosinophils (%) (Auto) 1% (0-3) Basophils (%) (Auto) 1% (0-3) Neutrophils # (Auto) 2.8x10^3uL (1.8-7.7) Lymphocytes # (Auto) 1.3x10^3/uL (1.0-4.8) Monocytes # (Auto) 0.5x10^3/uL (0.0-1.1) Eosinophils # (Auto) 0.1x10^3/uL (0.0-0.7) Basophils # (Auto) 0.0x10^3/uL (0.0-0.2) Sodium Level 141mmol/L (136-145) Potassium Level 3.8mmol/L (3.5-5.1) Chloride Level 105mmol/L (98-107) Carbon Dioxide Level 29mmol/L (21-32) Anion Gap 7 (6-14) Blood Urea Nitrogen 16mg/dL (8-26) Creatinine 1.1mg/dL (0.7-1.3) Estimated GFR (Cockcroft-Gault) 80.5 Glucose Level 124mg/dL (70-99) Calcium Level 8.9mg/dL (8.5-10.1) Medications Current Medications Furosemide (Lasix) 20 mg 1X ONCE IVP Last administered on 03/14/17 09:37; Start 03/14/17 at 09:30; Stop 03/14/17 at 09:31; Status DC Ondansetron HCl (Zofran) 4 mg PRN Q8HRS PRN IV NAUSEA/VOMITING; Start 03/14/17 at 09:30; Stop 03/15/17 at 09:29; Status DC Fentanyl Citrate (Fentanyl 2ml Vial) 50 mcg PRN Q2HR PRN IV PAIN; Start at 09:30; Stop 03/15/17 at 09:29; Status DC Acetaminophen (Tylenol) 650 mg PRN Q4HRS PRN PO FEVER; Start 03/14/17 at 09:30 ; Stop 03/15/17 at 09:29; Status DC Acetaminophen (Tylenol) 325 mg PRN Q6HRS PRN PO MILD PAIN / TEMP; Start at 10:30 Acetaminophen/ Hydrocodone Bitart (Lortab 5/325) 1 tab PRN Q6HRS PRN PO MODERATE TO SEVERE PAIN; Start 03/14/17 at 10:30 Hydralazine HCl (Apresoline) 10 mg PRN Q4HRS PRN IVP ELEVATED BP, SEE COMMENTS ; Start 03/14/17 at 10:30 Ondansetron HCl (Zofran) 4 mg PRN Q8HRS PRN IV NAUSEA/VOMITING; Start 03/14/17 at 10:30 Albuterol Sulfate (Ventolin Neb Soln) 2.5 mg PRN Q4HRS PRN NEB SHORTNESS OF BREATH; Start 03/14/17 at 10:30 Furosemide (Lasix) 40 mg DAILY IVP Last administered on 03/15/17 09:29; Start 03/15/17 at 09:00; Stop 03/17/17 at 08:59 Furosemide (Lasix) 40 mg 1X ONCE IVP Last administered on 03/14/17 14:11; Start 03/14/17 at 14:00; Stop 03/14/17 at 14:01; Status DC Metoprolol Succinate (Toprol Xl) 25 mg 1X ONCE PO Last administered on 12:02; Start 03/14/17 at 11:00; Stop 03/14/17 at 11:01; Status DC Metoprolol Succinate (Toprol Xl) 25 mg DAILY PO Last administered on 03/15/17 09:29; Start 03/15/17 at 09:00 Enoxaparin Sodium (Lovenox 40mg Syringe) 40 mg Q24H SQ Last administered on 15:18; Start 03/14/17 at 14:30 Active Scripts Active Reported Aspirin 81 Mg Tab.chew 1 Tab PO DAILY [prostate suppl] [multivitamin] [omega 3] Vitals/I & O Vital Sign - Last 24 Hours 03/14/17 03/14/17 03/14/17 03/14/17 14:54 19:20 20:10 23:45 Temp 98.2 98.3 98.2 98.3 Pulse 92 85 82 Resp 18 16 12 B/P 119/80 121/74 113/75 Pulse Ox 96 97 96 O2 Delivery Room Air Room Air Room Air Room Air 03/15/17 03/15/17 03/15/17 03/15/17 03:50 07:50 08:15 09:29 Temp 98.6 98.6 98.6 98.6 Pulse 81 80 80 Resp 17 B/P 112/78 104/65 104/65 Pulse Ox 97 96 O2 Delivery Room Air Room Air Room Air 03/15/17 12:03 Temp 98.4 98.4 Pulse 55 Resp 17 B/P 105/65 Pulse Ox 96 O2 Delivery Room Air Intake and Output 03/14/17 03/14/17 03/15/17 15:00 23:00 07:00 Intake Total 950 ml 600 ml Output Total 4150 ml 600 ml Balance -3200 ml 0 ml RACIEL WOLFF MD March 15, 2017 12:55
[2017-03-15] MEDS: ASPIRIN ENTERIC COATED 81 MG TABLET.DR. PO SCH (14:15)
[2017-03-15] MEDS: ENOXAPARIN 40 MG/0.4 ML SYRINGE. SQ SCH (14:16)
[2017-03-15 15:00] VITALS: BP 115/71
[2017-03-15] MEDS ORDERED: MAGNESIUM SULFATE 2GM 50 ML IV ONE (15:30)
--- NOTE | 2017-03-15 16:31 | CARD ---
APPROVED REPORT EXAM: Two-dimensional and M-mode echocardiogram with Doppler and color Doppler. Other Information Quality : Good INDICATION Congestive Heart Failure 2D DIMENSIONS RVDd3.5 (2.9-3.5cm)Left Atrium(2D)5.9 (1.6-4.0cm) IVSd1.6 (0.7-1.1cm)Aortic Root(2D)3.2 (2.0-3.7cm) LVDd7.1 (3.9-5.9cm)LVOT Diameter2.3 (1.8-2.4cm) PWd1.2 (0.7-1.1cm)LVDs6.6 (2.5-4.0cm) FS (%) 6.3 %SV35.8 ml LVEF(%)10.0 (>50%) Aortic Valve AoV Peak Brandt.106.1cm/sAoV VTI14.7cm AO Peak GR.4.5mmHgLVOT Peak Brandt.123.4cm/s LVOT VTI 20.19cmAO Mean GR.2mmHg NERY (VMAX)4.58sq7UPM (VTI)5.56cm2 Mitral Valve MV E Zwobgcbk588.4cm/sMV DECEL VYGC511om MV A Yzjeyqpt83.1cm/sMV YVW80wq E/A Ratio3.0MVA (PHT)6.87cm2 TDI E/Lateral E'13.3E/Medial E'43.4 Tricuspid Valve TR P. Yobjytrj255xd/sRAP ICUFSWLY6mvNx TR Peak Gr.20mkWwZFRS15wqEs LEFT VENTRICLE The Left Ventricle is severely dilated. There is mild to moderate concentric left ventricular hypertr ophy. The Ejection Fraction is 10-15%. There is severe global hypokinesis of the left ventricle. Eli smitral Doppler flow pattern is Grade IV-fixed restrictive diastolic dysfunction. RIGHT VENTRICLE The right ventricle is normal size. The right ventricular systolic function is normal. ATRIA The left atrium is severely dilated. The right atrium is moderately dilated. The interatrial septum i s intact with no evidence for an atrial septal defect or patent foramen ovale as noted on 2-D or Dopp ler imaging. AORTIC VALVE The aortic valve is moderately calcified. Doppler and Color Flow revealed no significant aortic regur gitation. There is no significant aortic valvular stenosis. MITRAL VALVE Restricted posterior leaflet. There is no mitral valve stenosis. Doppler and Color-flow revealed mild to moderate mitral regurgitation. TRICUSPID VALVE The tricuspid valve is normal in structure and function. Doppler and Color Flow revealed moderate tri cuspid regurgitation. There is no tricuspid valve stenosis. PULMONIC VALVE The pulmonary valve is normal in structure and function. Doppler and Color Flow revealed no pulmonic valvular regurgitation. There is no pulmonic valvular stenosis. GREAT VESSELS The aortic root is normal in size. The ascending aorta is normal in size. The IVC is normal in size a nd collapses <50% with inspiration. PERICARDIAL EFFUSION There is no evidence of significant pericardial effusion. Critical Notification Critical Value: No <Conclusion> The Ejection Fraction is 10-15%. There is severe global hypokinesis of the left ventricle. Transmitral Doppler flow pattern is Grade IV-fixed restrictive diastolic dysfunction. Doppler and Color-flow revealed mild to moderate mitral regurgitation. Doppler and Color Flow revealed moderate tricuspid regurgitation. RVSP 60 mm Hg.
[2017-03-15 19:31] VITALS: BP 108/67
[2017-03-15] MEDS ORDERED: ATORVASTATIN CALCIUM 40 MG TABLET. PO SCH (21:00)
[2017-03-15] MEDS: ATORVASTATIN CALCIUM 40 MG TABLET. PO SCH (21:04)
[2017-03-15 23:00] VITALS: BP 107/68
[2017-03-16] VITALS (13 sets, daily range): BP systolic 104–139; BP diastolic 64–87
[2017-03-16 05:11] LABS: BASO % 1 % (0-3); EOS % 2 % (0-3); HEMATOCRIT 39.2 % (39.0-53.0); LYMPH # 1.7 x10^3/uL (1.0-4.8); LYMPH % 36 % (24-48); MEAN CORPUSCULAR HEMOGLOBIN 31 pg (25-35); MEAN CORPUSCULAR HGB CONC 33 g/dL (31-37); MEAN CORPUSCULAR VOLUME 94 fL (79-100); MONO % 14 % (0-9); NEUT % 49 % (31-73); PLATELET COUNT 269 x10^3/uL (140-400); RED BLOOD COUNT 4.17 x10^6/uL (4.30-5.70); WHITE BLOOD COUNT 4.9 x10^3/uL (4.0-11.0)
[2017-03-16 05:31] LABS: CALCIUM 8.9 mg/dL (8.5-10.1); GFR 89.9; POTASSIUM 3.8 mmol/L (3.5-5.1)
[2017-03-16] MEDS: ASPIRIN ENTERIC COATED 81 MG TABLET.DR. PO SCH (08:42)
[2017-03-16] MEDS: METOPROLOL SUCC 24HR ER 25 MG TAB.ER.24H. PO SCH (08:43)
[2017-03-16] MEDS: FUROSEMIDE 40 MG/4 ML VIAL. IVP SCH (08:43)
--- NOTE | 2017-03-16 12:15 | PDOC ---
PROGRESS NOTES Chief Complaint Chief Complaint 1. Acute CHF exacerbation 2. Coronary artery disease 3. COPD 4. Hypertension 5. CABG History of Present Illness History of Present Illness Met with patient this am. Patient stable and in no distress. Exhibits +3 b/l leg edema. Patient demonstrates mild exertional sob. Vitals Vitals Vital Signs Date Time Temp Pulse Resp B/P Pulse Ox O2 Delivery O2 Flow Rate FiO2 03/16/17 11:40 97.5 77 20 115/64 96 Room Air 97.5 Physical Exam General: Alert, Oriented X3, Cooperative Heart: Regular rate, Normal S1, Normal S2 Lungs: Crackles (bl mild) Abdomen: No hepatosplenomegaly, No masses Extremities: No clubbing, No cyanosis, Other (bl leg 3 + edema) Skin: No breakdown, Other Labs LABS Laboratory Tests Test 03/15/17 16:20 03/16/17 04:20 03/16/17 04:25 Troponin I Quantitative 0.334ng/mL (0.000-0.055) White Blood Count 4.9x10^3/uL (4.0-11.0) Red Blood Count 4.17x10^6/uL (4.30-5.70) Hemoglobin 13.0g/dL (13.0-17.5) Hematocrit 39.2% (39.0-53.0) Mean Corpuscular Volume 94fL (79-100) Mean Corpuscular Hemoglobin 31pg (25-35) Mean Corpuscular Hemoglobin Concent 33g/dL (31-37) Red Cell Distribution Width 16.0% (11.5-14.5) Platelet Count 269x10^3/uL (140-400) Neutrophils (%) (Auto) 49% (31-73) Lymphocytes (%) (Auto) 36% (24-48) Monocytes (%) (Auto) 14% (0-9) Eosinophils (%) (Auto) 2% (0-3) Basophils (%) (Auto) 1% (0-3) Neutrophils # (Auto) 2.4x10^3uL (1.8-7.7) Lymphocytes # (Auto) 1.7x10^3/uL (1.0-4.8) Monocytes # (Auto) 0.7x10^3/uL (0.0-1.1) Eosinophils # (Auto) 0.1x10^3/uL (0.0-0.7) Basophils # (Auto) 0.0x10^3/uL (0.0-0.2) Sodium Level 139mmol/L (136-145) Potassium Level 3.8mmol/L (3.5-5.1) Chloride Level 105mmol/L (98-107) Carbon Dioxide Level 31mmol/L (21-32) Anion Gap 3 (6-14) Blood Urea Nitrogen 17mg/dL (8-26) Creatinine 1.0mg/dL (0.7-1.3) Estimated GFR (Cockcroft-Gault) 89.9 Glucose Level 96mg/dL (70-99) Calcium Level 8.9mg/dL (8.5-10.1) Review of Systems Review of Systems No diarrhea/constipation No vomiting No blurry vision/ROE No fever/chills Assessment and Plan Assessmemt and Plan Problems Medical Problems: (1) CHF exacerbation Status: Acute 2. Coronary artery disease 3. COPD 4. Hypertension 5. CABG Plan: -Continue all current medications and adjust accordingly as needed -Lasix 40 mg daily IVP for CHF exacerbation -Diuresis patient -Appreciate subspeciality opinion -Continue cardiac monitoring -Daily weight, check in and out -Monitor daily I's and O's -DVT ppx -PT/OT involvement Problems: Comment Review of Relevant I have reviewed the following items rell (where applicable) has been applied. Labs Laboratory Tests Test 03/15/17 07:00 03/15/17 16:20 03/16/17 04:20 03/16/17 04:25 White Blood Count 4.7x10^3/uL (4.0-11.0) 4.9x10^3/uL (4.0-11.0) Red Blood Count 4.22x10^6/uL (4.30-5.70) 4.17x10^6/uL (4.30-5.70) Hemoglobin 13.1g/dL (13.0-17.5) 13.0g/dL (13.0-17.5) Hematocrit 39.6% (39.0-53.0) 39.2% (39.0-53.0) Mean Corpuscular Volume 94fL (79-100) 94fL (79-100) Mean Corpuscular Hemoglobin 31pg (25-35) 31pg (25-35) Mean Corpuscular Hemoglobin Concent 33g/dL (31-37) 33g/dL (31-37) Red Cell Distribution Width 15.9% (11.5-14.5) 16.0% (11.5-14.5) Platelet Count 279x10^3/uL (140-400) 269x10^3/uL (140-400) Neutrophils (%) (Auto) 60% (31-73) 49% (31-73) Lymphocytes (%) (Auto) 28% (24-48) 36% (24-48) Monocytes (%) (Auto) 10% (0-9) 14% (0-9) Eosinophils (%) (Auto) 1% (0-3) 2% (0-3) Basophils (%) (Auto) 1% (0-3) 1% (0-3) Neutrophils # (Auto) 2.8x10^3uL (1.8-7.7) 2.4x10^3uL (1.8-7.7) Lymphocytes # (Auto) 1.3x10^3/uL (1.0-4.8) 1.7x10^3/uL (1.0-4.8) Monocytes # (Auto) 0.5x10^3/uL (0.0-1.1) 0.7x10^3/uL (0.0-1.1) Eosinophils # (Auto) 0.1x10^3/uL (0.0-0.7) 0.1x10^3/uL (0.0-0.7) Basophils # (Auto) 0.0x10^3/uL (0.0-0.2) 0.0x10^3/uL (0.0-0.2) Sodium Level 141mmol/L (136-145) 139mmol/L (136-145) Potassium Level 3.8mmol/L (3.5-5.1) 3.8mmol/L (3.5-5.1) Chloride Level 105mmol/L (98-107) 105mmol/L (98-107) Carbon Dioxide Level 29mmol/L (21-32) 31mmol/L (21-32) Anion Gap 7 (6-14) 3 (6-14) Blood Urea Nitrogen 16mg/dL (8-26) 17mg/dL (8-26) Creatinine 1.1mg/dL (0.7-1.3) 1.0mg/dL (0.7-1.3) Estimated GFR (Cockcroft-Gault) 80.5 89.9 Glucose Level 124mg/dL (70-99) 96mg/dL (70-99) Calcium Level 8.9mg/dL (8.5-10.1) 8.9mg/dL (8.5-10.1) Magnesium Level 1.7mg/dL (1.8-2.4) Troponin I Quantitative 0.378ng/mL (0.000-0.055) 0.334ng/mL (0.000-0.055) Triglycerides Level 49mg/dL (0-150) Cholesterol Level 284mg/dL (0-200) LDL Cholesterol, Calculated 217mg/dL (0-100) VLDL Cholesterol, Calculated 10mg/dL (0-40) Non-HDL Cholesterol Calculated 227mg/dL (0-129) HDL Cholesterol 57mg/dL (40-60) Cholesterol/HDL Ratio 5.0 Thyroid Stimulating Hormone (TSH) 2.804uIU/mL (0.358-3.74) Laboratory Tests Test 03/15/17 16:20 03/16/17 04:20 03/16/17 04:25 Troponin I Quantitative 0.334ng/mL (0.000-0.055) White Blood Count 4.9x10^3/uL (4.0-11.0) Red Blood Count 4.17x10^6/uL (4.30-5.70) Hemoglobin 13.0g/dL (13.0-17.5) Hematocrit 39.2% (39.0-53.0) Mean Corpuscular Volume 94fL (79-100) Mean Corpuscular Hemoglobin 31pg (25-35) Mean Corpuscular Hemoglobin Concent 33g/dL (31-37) Red Cell Distribution Width 16.0% (11.5-14.5) Platelet Count 269x10^3/uL (140-400) Neutrophils (%) (Auto) 49% (31-73) Lymphocytes (%) (Auto) 36% (24-48) Monocytes (%) (Auto) 14% (0-9) Eosinophils (%) (Auto) 2% (0-3) Basophils (%) (Auto) 1% (0-3) Neutrophils # (Auto) 2.4x10^3uL (1.8-7.7) Lymphocytes # (Auto) 1.7x10^3/uL (1.0-4.8) Monocytes # (Auto) 0.7x10^3/uL (0.0-1.1) Eosinophils # (Auto) 0.1x10^3/uL (0.0-0.7) Basophils # (Auto) 0.0x10^3/uL (0.0-0.2) Sodium Level 139mmol/L (136-145) Potassium Level 3.8mmol/L (3.5-5.1) Chloride Level 105mmol/L (98-107) Carbon Dioxide Level 31mmol/L (21-32) Anion Gap 3 (6-14) Blood Urea Nitrogen 17mg/dL (8-26) Creatinine 1.0mg/dL (0.7-1.3) Estimated GFR (Cockcroft-Gault) 89.9 Glucose Level 96mg/dL (70-99) Calcium Level 8.9mg/dL (8.5-10.1) Medications Current Medications Furosemide (Lasix) 20 mg 1X ONCE IVP Last administered on 03/14/17t 09:37; Start 03/14/17 at 09:30; Stop 03/14/17 at 09:31; Status DC Ondansetron HCl (Zofran) 4 mg PRN Q8HRS PRN IV NAUSEA/VOMITING; Start 03/14/17 at 09:30; Stop 03/15/17 at 09:29; Status DC Fentanyl Citrate (Fentanyl 2ml Vial) 50 mcg PRN Q2HR PRN IV PAIN; Start at 09:30; Stop 03/15/17 at 09:29; Status DC Acetaminophen (Tylenol) 650 mg PRN Q4HRS PRN PO FEVER; Start 03/14/17 at 09:30 ; Stop 03/15/17 at 09:29; Status DC Acetaminophen (Tylenol) 325 mg PRN Q6HRS PRN PO MILD PAIN / TEMP; Start at 10:30 Acetaminophen/ Hydrocodone Bitart (Lortab 5/325) 1 tab PRN Q6HRS PRN PO MODERATE TO SEVERE PAIN; Start 03/14/17 at 10:30 Hydralazine HCl (Apresoline) 10 mg PRN Q4HRS PRN IVP ELEVATED BP, SEE COMMENTS ; Start 03/14/17 at 10:30 Ondansetron HCl (Zofran) 4 mg PRN Q8HRS PRN IV NAUSEA/VOMITING; Start 03/14/17 at 10:30 Albuterol Sulfate (Ventolin Neb Soln) 2.5 mg PRN Q4HRS PRN NEB SHORTNESS OF BREATH; Start 03/14/17 at 10:30 Furosemide (Lasix) 40 mg DAILY IVP Last administered on 03/16/17 08:43; Start 03/15/17 at 09:00; Stop 03/17/17 at 08:59 Furosemide (Lasix) 40 mg 1X ONCE IVP Last administered on 03/14/17 14:11; Start 03/14/17 at 14:00; Stop 03/14/17 at 14:01; Status DC Metoprolol Succinate (Toprol Xl) 25 mg 1X ONCE PO Last administered on 12:02; Start 03/14/17 at 11:00; Stop 03/14/17 at 11:01; Status DC Metoprolol Succinate (Toprol Xl) 25 mg DAILY PO Last administered on 03/16/17 08:43; Start 03/15/17 at 09:00 Enoxaparin Sodium (Lovenox 40mg Syringe) 40 mg Q24H SQ Last administered on 03/15 14:16; Start 03/14/17 at 14:30 Aspirin (Ecotrin) 81 mg DAILYWBKFT PO Last administered on 03/16/17 08:42; Start 03/15/17 at 14:00 Atorvastatin Calcium (Lipitor) 40 mg QHS PO ; Start 03/15/17 at 21:00; Stop at 21:00; Status DC Atorvastatin Calcium 80 mg 80 mg QHS PO Last administered on 03/15/17 21:04; Start 03/15/17 at 21:00 Magnesium Sulfate/ Dextrose (Magnesium Sulfate PREMIX 2GM) 50 ml @ 25 mls/hr 1X ONCE IV Last administered on 03/15/17t 16:22; Start 03/15/17 at 15:30; Stop 03/15/17 at 17:29; Status DC Active Scripts Active Reported Aspirin 81 Mg Tab.chew 1 Tab PO DAILY [prostate suppl] [multivitamin] [omega 3] Vitals/I & O Vital Sign - Last 24 Hours 03/15/17 03/15/17 03/15/17 03/15/17 15:00 19:31 20:00 23:00 Temp 97.8 97.9 97.6 97.8 97.9 97.6 Pulse 84 76 79 Resp 18 B/P 115/71 108/67 107/68 Pulse Ox 98 97 98 O2 Delivery Room Air Room Air Room Air Room Air 03/16/17 03/16/17 03/16/17 03/16/17 03:24 07:30 07:42 08:43 Temp 98.5 97.6 98.5 97.6 Pulse 72 79 79 Resp 18 B/P 134/71 132/70 132/70 Pulse Ox 93 96 O2 Delivery Room Air Room Air Room Air 03/16/17 11:40 Temp 97.5 97.5 Pulse 77 Resp 20 B/P 115/64 Pulse Ox 96 O2 Delivery Room Air Intake and Output 03/15/17 03/15/17 03/16/17 15:00 23:00 07:00 Intake Total 120 ml 1420 ml Output Total 2955 ml 700 ml Balance 120 ml -1535 ml -700 ml SERGIO العلي III DO March 16, 2017 12:15
[2017-03-16] MEDS ORDERED: IOHEXOL 300 MG/ML 100ML VIAL. ONE ×2 (12:58→14:24)
[2017-03-16] MEDS ORDERED: LIDOCAINE 2% 20 ML VIAL. ONE (12:59)
[2017-03-16] MEDS ORDERED: fentaNYL PF VIAL 100 MCG/2 ML VIAL ONE (13:54)
[2017-03-16] MEDS ORDERED: MIDAZOLAM HCL/PF 2 MG/2 ML VIAL. ONE (13:54)
[2017-03-16] MEDS ORDERED: IOHEXOL 300 MG/ML 100ML VIAL. IART ONE (14:30)
[2017-03-16] MEDS ORDERED: LIDOCAINE 2% 20 ML VIAL. IJ ONE (14:30)
[2017-03-16] MEDS: ENOXAPARIN 40 MG/0.4 ML SYRINGE. SQ SCH (14:30)
[2017-03-16] MEDS ORDERED: fentaNYL PF VIAL 100 MCG/2 ML VIAL IV ONE (14:30)
[2017-03-16] MEDS ORDERED: MIDAZOLAM HCL/PF 2 MG/2 ML VIAL. IV ONE (14:30)
[2017-03-16] MEDS ORDERED: CONTRAST GIVEN MC PRN (14:45)
--- NOTE | 2017-03-16 17:16 | CARD ---
APPROVED REPORT Procedure(s) performed: Left Heart Catheterization + coronary angiography + bypass angiography + left ventriculography HISTORY The patient is a 66 year-old male with a history of : previous NM, previous CHF, hypertension, previo us CABG (The CABG date was ). INDICATION The indication(s) include : peripheral edema, dyspnea, Severe LV dysfunction, EF 20%. PROCEDURE NARRATIVE After appropriate informed consent the patient was brought to the catheterization laboratory and plac ed in the supine position. The bilateral groins were prepped and draped in usual sterile fashion. Nex t under 2% lidocaine local anesthesia a 6 Vietnamese introducer sheath was placed in the right common fem oral artery under fluoroscopic guidance with a J-tipped guidewire and a 18-gauge needle via the modif ied Seldinger technique. Subsequently, diagnostic angiography was performed using a JR4, JL4 and NISA catheters. Selective bypass angiography was also performed. Finally, a pigtail catheter was advanced to the left ventricle and pressures were obtained. A pullback was subsequent he also performed. Hemodynamics: LVEDP 25 Aortic pressure: 127/84 Left ventriculogram: Deferred due to known EF of 20% on echocardiogram Coronary angiography: LM: is a large caliber vessel with a distal 70% stenosis. LCx: large caliber vessel with an ostial 100% occlusion. Several obtuse marginal branches fill via ri ght to left collaterals from the RPL system. LAD: large caliber vessel with a proximal 100%occlusion. The distal vessel fills via a patent [place] to LAD. 1st Diag: moderate caliber vessel with a proximal 100% occlusion. The distal vessel fills via a paten t jump graft from the [place] to Diag and there is a distal 50% stenosis. RCA: Large caliber dominant vessel with a proximal 100% occlusion. The distal vessel is seen to fill via patent vein graft and is free of significant disease. Bypass angiography: [place] to LAD: Patent without anastomotic stenosis. SVG to RCA: Patent without anastomotic stenosis. Radial to OM: Severely atretic and occluded distally SVG jump from the NISA to the 1st diag: Patent without anastomotic stenosis. At case completion the right common femoral arterial sheath was removed and hemostasis was achieved w ith a Mynx Jayy device. The patient tolerated the procedure well and there were no immediate competiti ons. Conclusion 1. Severe mixed ischemic and non-ischemic CMP. 2. 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 3. Patent 3/4 bypass grafts. Recommendations Aggressive Medical Therapy
[2017-03-16] MEDS: ATORVASTATIN CALCIUM 40 MG TABLET. PO SCH (21:19)
[2017-03-17 03:19] VITALS: BP 110/70
[2017-03-17 04:43] LABS: BASO % 1 % (0-3); EOS % 1 % (0-3); HEMATOCRIT 38.2 % (39.0-53.0); LYMPH # 1.7 x10^3/uL (1.0-4.8); LYMPH % 38 % (24-48); MEAN CORPUSCULAR HEMOGLOBIN 32 pg (25-35); MEAN CORPUSCULAR HGB CONC 34 g/dL (31-37); MEAN CORPUSCULAR VOLUME 94 fL (79-100); MONO % 14 % (0-9); NEUT % 47 % (31-73); PLATELET COUNT 249 x10^3/uL (140-400); RED BLOOD COUNT 4.08 x10^6/uL (4.30-5.70); RED CELL DISTRIBUTION WIDTH 15.8 % (11.5-14.5); WHITE BLOOD COUNT 4.6 x10^3/uL (4.0-11.0)
[2017-03-17 05:07] LABS: CALCIUM 8.8 mg/dL (8.5-10.1); CREATININE 1.2 mg/dL (0.7-1.3); GFR 72.9
[2017-03-17 07:00] VITALS: BP 111/72
[2017-03-17] MEDS: METOPROLOL SUCC 24HR ER 25 MG TAB.ER.24H. PO SCH (09:58)
[2017-03-17] MEDS: ASPIRIN ENTERIC COATED 81 MG TABLET.DR. PO SCH (09:58)
--- NOTE | 2017-03-17 10:05 | RAD ---
Portable chest, 03/17/2017: History: Congestive heart failure Comparison is made to a study from 03/14/2017. There has been a previous median sternotomy. The heart is moderately enlarged. There is calcific plaquing and tortuosity of the thoracic aorta. The pulmonary vascularity is within normal limits. There appears to be minimal basilar scarring. No pulmonary consolidation is seen. There is no evidence of pleural fluid. Moderate degenerative changes are present at both shoulders. IMPRESSION: 1. Unchanged cardiomegaly. 2. No acute abnormality is detected.
[2017-03-17 11:00] VITALS: BP 96/65
--- NOTE | 2017-03-17 11:10 | PDOC ---
ZAC SANFORD EDGE FINISHER 03/17/17 1110: CARDIO Progress Notes Date and Time Date of Service 03/17/2017 Time of Evaluation 1050 Subjective Subjective: No Chest Pain, No shortness of breath, No Palpitations, No Dizziness, Other (SOA better, feels better today) Vitals Vitals Vital Signs Date Time Temp Pulse Resp B/P Pulse Ox O2 Delivery O2 Flow Rate FiO2 03/17/17 09:58 73 111/72 03/17/17 09:25 98 Room Air 03/17/17 07:00 98.1 17 98.1 03/16/17 15:27 2.0 Weight Weight [ ] Input and Output Intake and Output Intake and Output 03/17/17 07:00 Intake Total 1620 ml Output Total 1300 ml Balance 320 ml Intake Oral 1620 ml Output Urine Total 1300 ml # Voids 2 Laboratory Labs Laboratory Tests Test 03/17/17 04:10 White Blood Count 4.6x10^3/uL (4.0-11.0) Red Blood Count 4.08x10^6/uL (4.30-5.70) Hemoglobin 13.0g/dL (13.0-17.5) Hematocrit 38.2% (39.0-53.0) Mean Corpuscular Volume 94fL (79-100) Mean Corpuscular Hemoglobin 32pg (25-35) Mean Corpuscular Hemoglobin Concent 34g/dL (31-37) Red Cell Distribution Width 15.8% (11.5-14.5) Platelet Count 249x10^3/uL (140-400) Neutrophils (%) (Auto) 47% (31-73) Lymphocytes (%) (Auto) 38% (24-48) Monocytes (%) (Auto) 14% (0-9) Eosinophils (%) (Auto) 1% (0-3) Basophils (%) (Auto) 1% (0-3) Neutrophils # (Auto) 2.1x10^3uL (1.8-7.7) Lymphocytes # (Auto) 1.7x10^3/uL (1.0-4.8) Monocytes # (Auto) 0.6x10^3/uL (0.0-1.1) Eosinophils # (Auto) 0.1x10^3/uL (0.0-0.7) Basophils # (Auto) 0.0x10^3/uL (0.0-0.2) Sodium Level 140mmol/L (136-145) Potassium Level 4.0mmol/L (3.5-5.1) Chloride Level 105mmol/L (98-107) Carbon Dioxide Level 30mmol/L (21-32) Anion Gap 5 (6-14) Blood Urea Nitrogen 15mg/dL (8-26) Creatinine 1.2mg/dL (0.7-1.3) Estimated GFR (Cockcroft-Gault) 72.9 Glucose Level 91mg/dL (70-99) Calcium Level 8.8mg/dL (8.5-10.1) Magnesium Level 1.7mg/dL (1.8-2.4) Physical Exam HEENT: Neck Supple W Full Motion Chest: Symmetric LUNGS: Other (diminsihed bases with crackles) Heart: S1S2, RRR (SR/LBBB with occasional PVCs), other (distant heart sounds) Abdomen: Soft N/T Extremities: No Calf Tenderness, Other (3-4+ bilateral LE pitting edema) Neurology: alert, oriented, follow commands Other Exams right groin arteriotomy site intact without swelling, erythema, neurovascular status intact. Assessment Assessment 1. Acute on chronic combined systolic/diastolic CHF: NYHA 2-3. Net output loss 5L. Now compensated 2. Cardiomyopathy: primarily due to poor compliance. #1 with EF noted at 10-15% prompting LHC and findings are severe mixed ICM/NICM, severe three vessel CAD with LM involvement with Patent 3/4 bypass grafts. 3. CAD: CABG in the past wih grafts noted below. CP free. [place] to LAD: Patent without anastomotic stenosis. SVG to RCA: Patent without anastomotic stenosis. Radial to OM: Severely atretic and occluded distally SVG jump from the NISA to the 1st diag: Patent without anastomotic stenosis. 4. COPD: no inhalers, optimization per PCP 5. HTN: controlled 6. HLP: LDL 217 7. Peripheral venous insufficiency 8. Likely SIMA Recommendations 1. Meds as follows, Lasix 40 mg po daily, Toprol XL 25 mg po daily, will start on low dose entresto, NO separate ACEi or ARB 2. ECASA 81 mg po daily, Lipitor 80 mg po daily 3. NO Aldactone (may potentiate hypotension with entresto), will optimize entresto as an outpt per BP trend and tolerance 4. Arrange for lifevest, reeval heart function via TTE in 3 months and note if ELECTRONIC ASSEMBLER GROUP LEADER-D is warranted 5. Replace Mg 6. Outpt SIMA workup, referral per PCP 7. Lymphedema consult. 8. Daily weight, fluid restrictions 2 L, daily BP monitoring 9. Outpt CHF home health recommended. 10. F/U in office in 2-3 weeks 11. Significant discussion with treatment plan. Possible DC tomorrow or Wednesday TABATHA CARRIZALES MD 03/17/17 2123: CARDIO Progress Notes Plan Plan Pt. seen and examined. Agree with above PRODUCT EVANGELIST note. No acute events overnight. Continue diuresis as noted above. Will f/u in ZAC Ayala APRN March 17, 2017 11:10 TABATHA CARRIZALES MD March 17, 2017 21:23
[2017-03-17] MEDS ORDERED: MAGNESIUM SULFATE 2GM 50 ML IV ONE (11:30)
[2017-03-17] MEDS ORDERED: SPIRONOLACTONE 25 MG TABLET PO SCH (11:30)
[2017-03-17] MEDS ORDERED: POTASSIUM CHLORIDE 10 MEQ TABLET.ER. PO SCH (11:30)
[2017-03-17] MEDS ORDERED: LISINOPRIL 2.5 MG TABLET PO SCH (11:30)
[2017-03-17] MEDS: FUROSEMIDE 40 MG TABLET. PO SCH (13:21)
[2017-03-17 15:00] VITALS: BP 105/75
--- NOTE | 2017-03-17 15:34 | PDOC ---
PROGRESS NOTES Chief Complaint Chief Complaint 1. Acute CHF exacerbation 2. Coronary artery disease 3. COPD 4. Hypertension 5. CABG History of Present Illness History of Present Illness anasarca and scrotal edema from admit is improved cotn current Patient stable and in no distress. 2+ Leg edema. Patient demonstrates mild exertional sob. Vitals Vitals Vital Signs Date Time Temp Pulse Resp B/P Pulse Ox O2 Delivery O2 Flow Rate FiO2 03/17/17 11:00 97.9 82 17 96/65 94 Room Air 97.9 03/16/17 15:27 2.0 Physical Exam General: Alert, Oriented X3, Cooperative, No acute distress Heart: Regular rate, Normal S1, Normal S2 Lungs: Crackles (bl mild) Abdomen: No hepatosplenomegaly, No masses Extremities: No clubbing, No cyanosis, Other (bl leg 3 + edema) Skin: No breakdown, Other Labs LABS Laboratory Tests Test 03/17/17 04:10 White Blood Count 4.6x10^3/uL (4.0-11.0) Red Blood Count 4.08x10^6/uL (4.30-5.70) Hemoglobin 13.0g/dL (13.0-17.5) Hematocrit 38.2% (39.0-53.0) Mean Corpuscular Volume 94fL (79-100) Mean Corpuscular Hemoglobin 32pg (25-35) Mean Corpuscular Hemoglobin Concent 34g/dL (31-37) Red Cell Distribution Width 15.8% (11.5-14.5) Platelet Count 249x10^3/uL (140-400) Neutrophils (%) (Auto) 47% (31-73) Lymphocytes (%) (Auto) 38% (24-48) Monocytes (%) (Auto) 14% (0-9) Eosinophils (%) (Auto) 1% (0-3) Basophils (%) (Auto) 1% (0-3) Neutrophils # (Auto) 2.1x10^3uL (1.8-7.7) Lymphocytes # (Auto) 1.7x10^3/uL (1.0-4.8) Monocytes # (Auto) 0.6x10^3/uL (0.0-1.1) Eosinophils # (Auto) 0.1x10^3/uL (0.0-0.7) Basophils # (Auto) 0.0x10^3/uL (0.0-0.2) Sodium Level 140mmol/L (136-145) Potassium Level 4.0mmol/L (3.5-5.1) Chloride Level 105mmol/L (98-107) Carbon Dioxide Level 30mmol/L (21-32) Anion Gap 5 (6-14) Blood Urea Nitrogen 15mg/dL (8-26) Creatinine 1.2mg/dL (0.7-1.3) Estimated GFR (Cockcroft-Gault) 72.9 Glucose Level 91mg/dL (70-99) Calcium Level 8.8mg/dL (8.5-10.1) Magnesium Level 1.7mg/dL (1.8-2.4) Review of Systems Review of Systems no n.v.d Assessment and Plan Assessmemt and Plan Problems Medical Problems: (1) CHF exacerbation Status: Acute Problems: Comment Review of Relevant I have reviewed the following items rell (where applicable) has been applied. Labs Laboratory Tests Test 03/15/17 16:20 03/16/17 04:20 03/16/17 04:25 03/17/17 04:10 Troponin I Quantitative 0.334ng/mL (0.000-0.055) White Blood Count 4.9x10^3/uL (4.0-11.0) 4.6x10^3/uL (4.0-11.0) Red Blood Count 4.17x10^6/uL (4.30-5.70) 4.08x10^6/uL (4.30-5.70) Hemoglobin 13.0g/dL (13.0-17.5) 13.0g/dL (13.0-17.5) Hematocrit 39.2% (39.0-53.0) 38.2% (39.0-53.0) Mean Corpuscular Volume 94fL (79-100) 94fL (79-100) Mean Corpuscular Hemoglobin 31pg (25-35) 32pg (25-35) Mean Corpuscular Hemoglobin Concent 33g/dL (31-37) 34g/dL (31-37) Red Cell Distribution Width 16.0% (11.5-14.5) 15.8% (11.5-14.5) Platelet Count 269x10^3/uL (140-400) 249x10^3/uL (140-400) Neutrophils (%) (Auto) 49% (31-73) 47% (31-73) Lymphocytes (%) (Auto) 36% (24-48) 38% (24-48) Monocytes (%) (Auto) 14% (0-9) 14% (0-9) Eosinophils (%) (Auto) 2% (0-3) 1% (0-3) Basophils (%) (Auto) 1% (0-3) 1% (0-3) Neutrophils # (Auto) 2.4x10^3uL (1.8-7.7) 2.1x10^3uL (1.8-7.7) Lymphocytes # (Auto) 1.7x10^3/uL (1.0-4.8) 1.7x10^3/uL (1.0-4.8) Monocytes # (Auto) 0.7x10^3/uL (0.0-1.1) 0.6x10^3/uL (0.0-1.1) Eosinophils # (Auto) 0.1x10^3/uL (0.0-0.7) 0.1x10^3/uL (0.0-0.7) Basophils # (Auto) 0.0x10^3/uL (0.0-0.2) 0.0x10^3/uL (0.0-0.2) Sodium Level 139mmol/L (136-145) 140mmol/L (136-145) Potassium Level 3.8mmol/L (3.5-5.1) 4.0mmol/L (3.5-5.1) Chloride Level 105mmol/L (98-107) 105mmol/L (98-107) Carbon Dioxide Level 31mmol/L (21-32) 30mmol/L (21-32) Anion Gap 3 (6-14) 5 (6-14) Blood Urea Nitrogen 17mg/dL (8-26) 15mg/dL (8-26) Creatinine 1.0mg/dL (0.7-1.3) 1.2mg/dL (0.7-1.3) Estimated GFR (Cockcroft-Gault) 89.9 72.9 Glucose Level 96mg/dL (70-99) 91mg/dL (70-99) Calcium Level 8.9mg/dL (8.5-10.1) 8.8mg/dL (8.5-10.1) Magnesium Level 1.7mg/dL (1.8-2.4) Laboratory Tests Test 03/17/17 04:10 White Blood Count 4.6x10^3/uL (4.0-11.0) Red Blood Count 4.08x10^6/uL (4.30-5.70) Hemoglobin 13.0g/dL (13.0-17.5) Hematocrit 38.2% (39.0-53.0) Mean Corpuscular Volume 94fL (79-100) Mean Corpuscular Hemoglobin 32pg (25-35) Mean Corpuscular Hemoglobin Concent 34g/dL (31-37) Red Cell Distribution Width 15.8% (11.5-14.5) Platelet Count 249x10^3/uL (140-400) Neutrophils (%) (Auto) 47% (31-73) Lymphocytes (%) (Auto) 38% (24-48) Monocytes (%) (Auto) 14% (0-9) Eosinophils (%) (Auto) 1% (0-3) Basophils (%) (Auto) 1% (0-3) Neutrophils # (Auto) 2.1x10^3uL (1.8-7.7) Lymphocytes # (Auto) 1.7x10^3/uL (1.0-4.8) Monocytes # (Auto) 0.6x10^3/uL (0.0-1.1) Eosinophils # (Auto) 0.1x10^3/uL (0.0-0.7) Basophils # (Auto) 0.0x10^3/uL (0.0-0.2) Sodium Level 140mmol/L (136-145) Potassium Level 4.0mmol/L (3.5-5.1) Chloride Level 105mmol/L (98-107) Carbon Dioxide Level 30mmol/L (21-32) Anion Gap 5 (6-14) Blood Urea Nitrogen 15mg/dL (8-26) Creatinine 1.2mg/dL (0.7-1.3) Estimated GFR (Cockcroft-Gault) 72.9 Glucose Level 91mg/dL (70-99) Calcium Level 8.8mg/dL (8.5-10.1) Magnesium Level 1.7mg/dL (1.8-2.4) Medications Current Medications Furosemide (Lasix) 20 mg 1X ONCE IVP Last administered on 03/14/17 09:37; Start 03/14/17 at 09:30; Stop 03/14/17 at 09:31; Status DC Ondansetron HCl (Zofran) 4 mg PRN Q8HRS PRN IV NAUSEA/VOMITING; Start 03/14/17 at 09:30; Stop 03/15/17 at 09:29; Status DC Fentanyl Citrate (Fentanyl 2ml Vial) 50 mcg PRN Q2HR PRN IV PAIN; Start at 09:30; Stop 03/15/17 at 09:29; Status DC Acetaminophen (Tylenol) 650 mg PRN Q4HRS PRN PO FEVER; Start 03/14/17 at 09:30 ; Stop 03/15/17 at 09:29; Status DC Acetaminophen (Tylenol) 325 mg PRN Q6HRS PRN PO MILD PAIN / TEMP; Start at 10:30 Acetaminophen/ Hydrocodone Bitart (Lortab 5/325) 1 tab PRN Q6HRS PRN PO MODERATE TO SEVERE PAIN; Start 03/14/17 at 10:30 Hydralazine HCl (Apresoline) 10 mg PRN Q4HRS PRN IVP ELEVATED BP, SEE COMMENTS ; Start 03/14/17 at 10:30 Ondansetron HCl (Zofran) 4 mg PRN Q8HRS PRN IV NAUSEA/VOMITING; Start 03/14/17 at 10:30 Albuterol Sulfate (Ventolin Neb Soln) 2.5 mg PRN Q4HRS PRN NEB SHORTNESS OF BREATH; Start 03/14/17 at 10:30 Furosemide (Lasix) 40 mg DAILY IVP Last administered on 03/16/17 08:43; Start 03/15/17 at 09:00; Stop 03/17/17 at 08:59; Status DC Furosemide (Lasix) 40 mg 1X ONCE IVP Last administered on 03/14/17 14:11; Start 03/14/17 at 14:00; Stop 03/14/17 at 14:01; Status DC Metoprolol Succinate (Toprol Xl) 25 mg 1X ONCE PO Last administered on 12:02; Start 03/14/17 at 11:00; Stop 03/14/17 at 11:01; Status DC Metoprolol Succinate (Toprol Xl) 25 mg DAILY PO Last administered on 03/17/17 09:58; Start 03/15/17 at 09:00 Enoxaparin Sodium (Lovenox 40mg Syringe) 40 mg Q24H SQ Last administered on 03/15 14:16; Start 03/14/17 at 14:30 Aspirin (Ecotrin) 81 mg DAILYWBKFT PO Last administered on 03/17/17 09:58; Start 03/15/17 at 14:00 Atorvastatin Calcium (Lipitor) 40 mg QHS PO ; Start 03/15/17 at 21:00; Stop at 21:00; Status DC Atorvastatin Calcium 80 mg 80 mg QHS PO Last administered on 03/16/17 21:19; Start 03/15/17 at 21:00 Magnesium Sulfate/ Dextrose (Magnesium Sulfate PREMIX 2GM) 50 ml @ 25 mls/hr 1X ONCE IV Last administered on 03/15/17 16:22; Start 03/15/17 at 15:30; Stop 03/15/17 at 17:29; Status DC Iohexol 100 ml 100 ml STK-MED ONCE .ROUTE ; Start 03/16/17 at 12:58; Stop at 12:59; Status DC Heparin Sodium/ Sodium Chloride 1,000 ml @ As Directed STK-MED ONCE .ROUTE ; Start 03/16/17 at 12:59; Stop 03/16/17 at 13:00; Status DC Lidocaine HCl 20 ml STK-MED ONCE .ROUTE ; Start 03/16/17 at 12:59; Stop 03/16/17 at 13:00; Status DC Fentanyl Citrate (Fentanyl 2ml Vial) 100 mcg STK-MED ONCE .ROUTE ; Start at 13:54; Stop 03/16/17 at 13:55; Status DC Midazolam HCl (Versed) 2 mg STK-MED ONCE .ROUTE ; Start 03/16/17 at 13:54; Stop 03/16/17 at 13:55; Status DC Iohexol (Omnipaque 300 Mg/ml) 100 ml STK-MED ONCE .ROUTE ; Start 03/16/17 at 14: 24; Stop 03/16/17 at 14:25; Status DC Heparin Sodium/ Sodium Chloride 1,000 unit 1X ONCE IART Last administered on 14:56; Start 03/16/17 at 14:30; Stop 03/16/17 at 14:38; Status DC Midazolam HCl (Versed) 2 mg 1X ONCE IV Last administered on 03/16/17 14:57; Start 03/16/17 at 14:30; Stop 03/16/17 at 14:38; Status DC Fentanyl Citrate (Fentanyl 2ml Vial) 100 mcg 1X ONCE IV Last administered on 14:57; Start 03/16/17 at 14:30; Stop 03/16/17 at 14:38; Status DC Iohexol (Omnipaque 300 Mg/ml) 100 ml 1X ONCE IART Last administered on 14:56; Start 03/16/17 at 14:30; Stop 03/16/17 at 14:38; Status DC Lidocaine HCl 10 ml 1X ONCE IJ Last administered on 03/16/17 14:56; Start 03/16 at 14:30; Stop 03/16/17 at 14:38; Status DC Info 1 each 1 each PRN DAILY PRN MC SEE COMMENTS; Start 03/16/17 at 14:45; Stop 03/18/17 at 14:44 Magnesium Sulfate/ Dextrose (Magnesium Sulfate PREMIX 2GM) 50 ml @ 25 mls/hr 1X ONCE IV Last administered on 03/17/17 13:22; Start 03/17/17 at 11:30; Stop 03/17/17 at 13:29; Status DC Furosemide (Lasix) 40 mg DAILY PO Last administered on 03/17/17 13:21; Start at 11:30 Lisinopril (Prinivil) 2.5 mg DAILY PO ; Start 03/17/17 at 11:30; Stop 03/17/17 at 12:48; Status DC Potassium Chloride (Klor-Con) 10 meq DAILYWBKFT PO ; Start 03/17/17 at 11:30; Stop 03/17/17 at 11:30; Status DC Spironolactone (Aldactone) 25 mg DAILY PO ; Start 03/17/17 at 11:30; Stop at 12:48; Status DC Sacubitril/ Valsartan (Entresto 24 Mg-26 Mg) 1 tab BID PO ; Start 03/17/17 at 21: 00 Potassium Chloride (Klor-Con) 10 meq DAILYWBKFT PO ; Start 03/18/17 at 08:00 Active Scripts Active Reported Aspirin 81 Mg Tab.chew 1 Tab PO DAILY [prostate suppl] [multivitamin] [omega 3] Vitals/I & O Vital Sign - Last 24 Hours 03/16/17 03/16/17 03/16/17 03/16/17 15:45 16:00 16:30 17:00 Pulse 95 95 95 95 B/P 135/68 119/72 139/78 139/78 O2 Delivery Room Air Room Air Room Air Room Air 03/16/17 03/16/17 03/16/17 03/16/17 18:32 19:40 20:00 23:44 Temp 97.7 97.7 97.7 97.7 Pulse 90 88 80 Resp 18 18 B/P 109/70 113/68 104/67 Pulse Ox 97 97 O2 Delivery Room Air Room Air Room Air Room Air 03/17/17 03/17/17 03/17/17 03/17/17 03:19 07:00 08:00 09:25 Temp 97.9 98.1 97.9 98.1 Pulse 77 73 Resp 16 17 B/P 110/70 111/72 Pulse Ox 96 97 98 O2 Delivery Room Air Room Air Room Air Room Air 03/17/17 03/17/17 09:58 11:00 Temp 97.9 97.9 Pulse 73 82 Resp 17 B/P 111/72 96/65 Pulse Ox 94 O2 Delivery Room Air Intake and Output 03/16/17 03/16/17 03/17/17 15:00 23:00 07:00 Intake Total 1020 ml 600 ml Output Total 600 ml 500 ml 200 ml Balance 420 ml -500 ml 400 ml MARCELINA LIU MD March 17, 2017 15:34
[2017-03-17] MEDS: ENOXAPARIN 40 MG/0.4 ML SYRINGE. SQ SCH (16:18)
[2017-03-17 19:30] VITALS: BP 100/62
[2017-03-17] MEDS: ATORVASTATIN CALCIUM 40 MG TABLET. PO SCH (20:49)
[2017-03-17] MEDS: SACUBITRIL/VALSARTAN 24/26MG TABLET. PO SCH (20:49)
[2017-03-17 23:00] VITALS: BP_SYST 107; BP_SYST 148; BP_DIAS 66; BP_DIAS 67
[2017-03-18 03:11] VITALS: BP 99/62
[2017-03-18 03:29] LABS: BASO % 1 % (0-3); EOS % 1 % (0-3); HEMATOCRIT 40.3 % (39.0-53.0); HEMOGLOBIN 13.2 g/dL (13.0-17.5); LYMPH # 1.9 x10^3/uL (1.0-4.8); LYMPH % 34 % (24-48); MEAN CORPUSCULAR HEMOGLOBIN 31 pg (25-35); MEAN CORPUSCULAR HGB CONC 33 g/dL (31-37); MEAN CORPUSCULAR VOLUME 95 fL (79-100); MONO % 13 % (0-9); NEUT % 52 % (31-73); PLATELET COUNT 245 x10^3/uL (140-400); RED BLOOD COUNT 4.25 x10^6/uL (4.30-5.70); RED CELL DISTRIBUTION WIDTH 15.8 % (11.5-14.5); WHITE BLOOD COUNT 5.4 x10^3/uL (4.0-11.0)
[2017-03-18 07:00] VITALS: BP 105/68
[2017-03-18 07:30] LABS: CALCIUM 8.7 mg/dL (8.5-10.1); CREATININE 1.1 mg/dL (0.7-1.3); GFR 80.5; POTASSIUM 4.1 mmol/L (3.5-5.1)
[2017-03-18] MEDS ORDERED: POTASSIUM CHLORIDE 10 MEQ TABLET.ER. PO SCH (08:00)
[2017-03-18] MEDS: ASPIRIN ENTERIC COATED 81 MG TABLET.DR. PO SCH (08:18)
[2017-03-18] MEDS: SACUBITRIL/VALSARTAN 24/26MG TABLET. PO SCH (08:19)
[2017-03-18] MEDS: FUROSEMIDE 40 MG TABLET. PO SCH (08:22)
[2017-03-18] MEDS: METOPROLOL SUCC 24HR ER 25 MG TAB.ER.24H. PO SCH (08:22)
--- NOTE | 2017-03-18 09:51 | PDOC ---
ZAC SANFORD RAISER HELPER 03/18/17 0951: CARDIO Progress Notes Date and Time Date of Service 03/18/2017 Time of Evaluation 0910 Subjective Subjective: No Chest Pain, No shortness of breath, No Palpitations, No Dizziness Vitals Vitals Vital Signs Date Time Temp Pulse Resp B/P (MAP) Pulse Ox O2 Delivery O2 Flow Rate FiO2 03/18/17 08:22 79 105/63 03/18/17 07:56 Room Air 03/18/17 07:00 97.5 18 98 97.5 Weight Weight [ ] Input and Output Intake and Output Intake and Output 03/18/17 07:00 Intake Total 1050 ml Output Total 1051 ml Balance -1 ml Intake Oral 1050 ml Output Urine Total 1050 ml Stool Total 1 ml # Voids 1 Laboratory Labs Laboratory Tests Test 03/18/17 03:00 White Blood Count 5.4 x10^3/uL (4.0-11.0) Red Blood Count 4.25 x10^6/uL (4.30-5.70) Hemoglobin 13.2 g/dL (13.0-17.5) Hematocrit 40.3 % (39.0-53.0) Mean Corpuscular Volume 95 fL (79-100) Mean Corpuscular Hemoglobin 31 pg (25-35) Mean Corpuscular Hemoglobin Concent 33 g/dL (31-37) Red Cell Distribution Width 15.8 % (11.5-14.5) Platelet Count 245 x10^3/uL (140-400) Neutrophils (%) (Auto) 52 % (31-73) Lymphocytes (%) (Auto) 34 % (24-48) Monocytes (%) (Auto) 13 % (0-9) Eosinophils (%) (Auto) 1 % (0-3) Basophils (%) (Auto) 1 % (0-3) Neutrophils # (Auto) 2.8 x10^3uL (1.8-7.7) Lymphocytes # (Auto) 1.9 x10^3/uL (1.0-4.8) Monocytes # (Auto) 0.7 x10^3/uL (0.0-1.1) Eosinophils # (Auto) 0.1 x10^3/uL (0.0-0.7) Basophils # (Auto) 0.0 x10^3/uL (0.0-0.2) Sodium Level 139 mmol/L (136-145) Potassium Level 4.1 mmol/L (3.5-5.1) Chloride Level 104 mmol/L (98-107) Carbon Dioxide Level 30 mmol/L (21-32) Anion Gap 5 (6-14) Blood Urea Nitrogen 17 mg/dL (8-26) Creatinine 1.1 mg/dL (0.7-1.3) Estimated GFR (Cockcroft-Gault) 80.5 Glucose Level 101 mg/dL (70-99) Calcium Level 8.7 mg/dL (8.5-10.1) Magnesium Level 1.9 mg/dL (1.8-2.4) Physical Exam HEENT: Neck Supple W Full Motion Chest: Symmetric LUNGS: Clear to Auscultation Heart: S1S2, RRR (SR/LBBB with occasional PVCs) Abdomen: Soft N/T Extremities: No Calf Tenderness, Other (3-4+ bilateral LE pitting edema) Neurology: alert, oriented, follow commands Assessment Assessment 1. Acute on chronic combined systolic/diastolic CHF: NYHA 2-3. Compensated. Good tolerance with increased ambulation 2. ICM/NICM: primarily due to poor compliance. 3. CAD: CABG in the past (3VD). 03/16/17 - S/P LHC with patent 3/4 grafts with OM collateralization via RPL 4. COPD: no inhalers, optimization per PCP 5. HTN: controlled 6. HLP: LDL 217 7. Peripheral venous insufficiency/lymphedema 8. Likely SIMA Recommendations 1. Lasix 40 mg po daily, Toprol XL 25 mg po daily, Low dose entresto (enrolled on support program, 2 wk samples with 30 day coupon card provided) 2. ECASA 81 mg po daily, Lipitor 80 mg po daily 4. Arrange for lifevest, reeval heart function via TTE in 3 months and note if PIANO REGULATOR-D is warranted 5. Outpt SIMA workup 6. Daily weight, fluid restrictions 2 L, daily BP monitoring 7. Outpt CHF home health 8. F/U in office in 2-3 weeks 9. Reinforced adherence TABATHA CARRIZALES MD 03/19/17 1256: CARDIO Progress Notes Plan Plan Pt. seen and examined. Agree with above ROPE MACHINE SETTER Note. No acute events overnight. Tolerated diuresis well Reports feeling much better. Continue medical therapy as noted above Close f/u in the office. ZAC SANFORD APRN March 18, 2017 09:51 TABATHA CARRIZALES MD March 19, 2017 12:56
[2017-03-18] MEDS ORDERED: FUROSEMIDE 40 MG/4 ML VIAL. IVP ONE (10:30)
[2017-03-18 11:00] VITALS: BP 102/65
--- NOTE | 2017-03-18 13:46 | PDOC ---
PROGRESS NOTES Chief Complaint Chief Complaint 1. Acute systolic CHF exacerbation 2. Coronary artery disease 3. COPD 4. Hypertension 5. CABG History of Present Illness History of Present Illness anasarca and scrotal edema from admit is again improved Patient stable and in no distress. 2+ Leg edema. improved Patient demonstrates mild exertional sob. he would like to DC home, he feels he can do outpatient CV rehab Vitals Vitals Vital Signs Date Time Temp Pulse Resp B/P (MAP) Pulse Ox O2 Delivery O2 Flow Rate FiO2 03/18/17 11:00 97.5 79 18 102/65 (77) 97 Room Air 97.5 Physical Exam General: Alert, Oriented X3, Cooperative, No acute distress Heart: Regular rate, Normal S1, Normal S2 Lungs: Crackles (bl mild) Abdomen: No hepatosplenomegaly, No masses Extremities: No clubbing, No cyanosis, Other (bl leg 3 + edema) Skin: No breakdown, Other Labs LABS Laboratory Tests Test 03/18/17 03:00 White Blood Count 5.4 x10^3/uL (4.0-11.0) Red Blood Count 4.25 x10^6/uL (4.30-5.70) Hemoglobin 13.2 g/dL (13.0-17.5) Hematocrit 40.3 % (39.0-53.0) Mean Corpuscular Volume 95 fL (79-100) Mean Corpuscular Hemoglobin 31 pg (25-35) Mean Corpuscular Hemoglobin Concent 33 g/dL (31-37) Red Cell Distribution Width 15.8 % (11.5-14.5) Platelet Count 245 x10^3/uL (140-400) Neutrophils (%) (Auto) 52 % (31-73) Lymphocytes (%) (Auto) 34 % (24-48) Monocytes (%) (Auto) 13 % (0-9) Eosinophils (%) (Auto) 1 % (0-3) Basophils (%) (Auto) 1 % (0-3) Neutrophils # (Auto) 2.8 x10^3uL (1.8-7.7) Lymphocytes # (Auto) 1.9 x10^3/uL (1.0-4.8) Monocytes # (Auto) 0.7 x10^3/uL (0.0-1.1) Eosinophils # (Auto) 0.1 x10^3/uL (0.0-0.7) Basophils # (Auto) 0.0 x10^3/uL (0.0-0.2) Sodium Level 139 mmol/L (136-145) Potassium Level 4.1 mmol/L (3.5-5.1) Chloride Level 104 mmol/L (98-107) Carbon Dioxide Level 30 mmol/L (21-32) Anion Gap 5 (6-14) Blood Urea Nitrogen 17 mg/dL (8-26) Creatinine 1.1 mg/dL (0.7-1.3) Estimated GFR (Cockcroft-Gault) 80.5 Glucose Level 101 mg/dL (70-99) Calcium Level 8.7 mg/dL (8.5-10.1) Magnesium Level 1.9 mg/dL (1.8-2.4) Assessment and Plan Assessmemt and Plan DC home outpatient cardiac rehab life vest for DC Problems Medical Problems: (1) CHF exacerbation Status: Acute Problems: Comment Review of Relevant I have reviewed the following items rell (where applicable) has been applied. Labs Laboratory Tests Test 03/17/17 04:10 03/18/17 03:00 White Blood Count 4.6 x10^3/uL (4.0-11.0) 5.4 x10^3/uL (4.0-11.0) Red Blood Count 4.08 x10^6/uL (4.30-5.70) 4.25 x10^6/uL (4.30-5.70) Hemoglobin 13.0 g/dL (13.0-17.5) 13.2 g/dL (13.0-17.5) Hematocrit 38.2 % (39.0-53.0) 40.3 % (39.0-53.0) Mean Corpuscular Volume 94 fL (79-100) 95 fL (79-100) Mean Corpuscular Hemoglobin 32 pg (25-35) 31 pg (25-35) Mean Corpuscular Hemoglobin Concent 34 g/dL (31-37) 33 g/dL (31-37) Red Cell Distribution Width 15.8 % (11.5-14.5) 15.8 % (11.5-14.5) Platelet Count 249 x10^3/uL (140-400) 245 x10^3/uL (140-400) Neutrophils (%) (Auto) 47 % (31-73) 52 % (31-73) Lymphocytes (%) (Auto) 38 % (24-48) 34 % (24-48) Monocytes (%) (Auto) 14 % (0-9) 13 % (0-9) Eosinophils (%) (Auto) 1 % (0-3) 1 % (0-3) Basophils (%) (Auto) 1 % (0-3) 1 % (0-3) Neutrophils # (Auto) 2.1 x10^3uL (1.8-7.7) 2.8 x10^3uL (1.8-7.7) Lymphocytes # (Auto) 1.7 x10^3/uL (1.0-4.8) 1.9 x10^3/uL (1.0-4.8) Monocytes # (Auto) 0.6 x10^3/uL (0.0-1.1) 0.7 x10^3/uL (0.0-1.1) Eosinophils # (Auto) 0.1 x10^3/uL (0.0-0.7) 0.1 x10^3/uL (0.0-0.7) Basophils # (Auto) 0.0 x10^3/uL (0.0-0.2) 0.0 x10^3/uL (0.0-0.2) Sodium Level 140 mmol/L (136-145) 139 mmol/L (136-145) Potassium Level 4.0 mmol/L (3.5-5.1) 4.1 mmol/L (3.5-5.1) Chloride Level 105 mmol/L (98-107) 104 mmol/L (98-107) Carbon Dioxide Level 30 mmol/L (21-32) 30 mmol/L (21-32) Anion Gap 5 (6-14) 5 (6-14) Blood Urea Nitrogen 15 mg/dL (8-26) 17 mg/dL (8-26) Creatinine 1.2 mg/dL (0.7-1.3) 1.1 mg/dL (0.7-1.3) Estimated GFR (Cockcroft-Gault) 72.9 80.5 Glucose Level 91 mg/dL (70-99) 101 mg/dL (70-99) Calcium Level 8.8 mg/dL (8.5-10.1) 8.7 mg/dL (8.5-10.1) Magnesium Level 1.7 mg/dL (1.8-2.4) 1.9 mg/dL (1.8-2.4) Laboratory Tests Test 03/18/17 03:00 White Blood Count 5.4 x10^3/uL (4.0-11.0) Red Blood Count 4.25 x10^6/uL (4.30-5.70) Hemoglobin 13.2 g/dL (13.0-17.5) Hematocrit 40.3 % (39.0-53.0) Mean Corpuscular Volume 95 fL (79-100) Mean Corpuscular Hemoglobin 31 pg (25-35) Mean Corpuscular Hemoglobin Concent 33 g/dL (31-37) Red Cell Distribution Width 15.8 % (11.5-14.5) Platelet Count 245 x10^3/uL (140-400) Neutrophils (%) (Auto) 52 % (31-73) Lymphocytes (%) (Auto) 34 % (24-48) Monocytes (%) (Auto) 13 % (0-9) Eosinophils (%) (Auto) 1 % (0-3) Basophils (%) (Auto) 1 % (0-3) Neutrophils # (Auto) 2.8 x10^3uL (1.8-7.7) Lymphocytes # (Auto) 1.9 x10^3/uL (1.0-4.8) Monocytes # (Auto) 0.7 x10^3/uL (0.0-1.1) Eosinophils # (Auto) 0.1 x10^3/uL (0.0-0.7) Basophils # (Auto) 0.0 x10^3/uL (0.0-0.2) Sodium Level 139 mmol/L (136-145) Potassium Level 4.1 mmol/L (3.5-5.1) Chloride Level 104 mmol/L (98-107) Carbon Dioxide Level 30 mmol/L (21-32) Anion Gap 5 (6-14) Blood Urea Nitrogen 17 mg/dL (8-26) Creatinine 1.1 mg/dL (0.7-1.3) Estimated GFR (Cockcroft-Gault) 80.5 Glucose Level 101 mg/dL (70-99) Calcium Level 8.7 mg/dL (8.5-10.1) Magnesium Level 1.9 mg/dL (1.8-2.4) Medications Current Medications Furosemide (Lasix) 20 mg 1X ONCE IVP Last administered on 03/14/17 09:37; Start 03/14/17 at 09:30; Stop 03/14/17 at 09:31; Status DC Ondansetron HCl (Zofran) 4 mg PRN Q8HRS PRN IV NAUSEA/VOMITING; Start 03/14/17 at 09:30; Stop 03/15/17 at 09:29; Status DC Fentanyl Citrate (Fentanyl 2ml Vial) 50 mcg PRN Q2HR PRN IV PAIN; Start at 09:30; Stop 03/15/17 at 09:29; Status DC Acetaminophen (Tylenol) 650 mg PRN Q4HRS PRN PO FEVER; Start 03/14/17 at 09:30 ; Stop 03/15/17 at 09:29; Status DC Acetaminophen (Tylenol) 325 mg PRN Q6HRS PRN PO MILD PAIN / TEMP; Start at 10:30 Acetaminophen/ Hydrocodone Bitart (Lortab 5/325) 1 tab PRN Q6HRS PRN PO MODERATE TO SEVERE PAIN; Start 03/14/17 at 10:30 Hydralazine HCl (Apresoline) 10 mg PRN Q4HRS PRN IVP ELEVATED BP, SEE COMMENTS ; Start 03/14/17 at 10:30 Ondansetron HCl (Zofran) 4 mg PRN Q8HRS PRN IV NAUSEA/VOMITING; Start 03/14/17 at 10:30 Albuterol Sulfate (Ventolin Neb Soln) 2.5 mg PRN Q4HRS PRN NEB SHORTNESS OF BREATH; Start 03/14/17 at 10:30 Furosemide (Lasix) 40 mg DAILY IVP Last administered on 03/16/17 08:43; Start 03/15/17 at 09:00; Stop 03/17/17 at 08:59; Status DC Furosemide (Lasix) 40 mg 1X ONCE IVP Last administered on 03/14/17 14:11; Start 03/14/17 at 14:00; Stop 03/14/17 at 14:01; Status DC Metoprolol Succinate (Toprol Xl) 25 mg 1X ONCE PO Last administered on 12:02; Start 03/14/17 at 11:00; Stop 03/14/17 at 11:01; Status DC Metoprolol Succinate (Toprol Xl) 25 mg DAILY PO Last administered on 03/18/17 08:22; Start 03/15/17 at 09:00 Enoxaparin Sodium (Lovenox 40mg Syringe) 40 mg Q24H SQ Last administered on 03/17 16:18; Start 03/14/17 at 14:30 Aspirin (Ecotrin) 81 mg DAILYWBKFT PO Last administered on 03/18/17 08:18; Start 03/15/17 at 14:00 Atorvastatin Calcium (Lipitor) 40 mg QHS PO ; Start 03/15/17 at 21:00; Stop at 21:00; Status DC Atorvastatin Calcium (Lipitor) 80 mg QHS PO Last administered on 03/17/17 20:49 ; Start 03/15/17 at 21:00 Magnesium Sulfate/ Dextrose 50 ml @ 25 mls/hr 1X ONCE IV Last administered on 03/15/17 16:22; Start 03/15/17 at 15:30; Stop 03/15/17 at 17:29; Status DC Iohexol (Omnipaque 300 Mg/ml) 100 ml STK-MED ONCE .ROUTE ; Start 03/16/17 at 12: 58; Stop 03/16/17 at 12:59; Status DC Heparin Sodium/ Sodium Chloride 1,000 ml @ As Directed STK-MED ONCE .ROUTE ; Start 03/16/17 at 12:59; Stop 03/16/17 at 13:00; Status DC Lidocaine HCl 20 ml STK-MED ONCE .ROUTE ; Start 03/16/17 at 12:59; Stop 03/16/17 at 13:00; Status DC Fentanyl Citrate (Fentanyl 2ml Vial) 100 mcg STK-MED ONCE .ROUTE ; Start at 13:54; Stop 03/16/17 at 13:55; Status DC Midazolam HCl (Versed) 2 mg STK-MED ONCE .ROUTE ; Start 03/16/17 at 13:54; Stop 03/16/17 at 13:55; Status DC Iohexol (Omnipaque 300 Mg/ml) 100 ml STK-MED ONCE .ROUTE ; Start 03/16/17 at 14: 24; Stop 03/16/17 at 14:25; Status DC Heparin Sodium/ Sodium Chloride 1,000 unit 1X ONCE IART Last administered on 14:56; Start 03/16/17 at 14:30; Stop 03/16/17 at 14:38; Status DC Midazolam HCl (Versed) 2 mg 1X ONCE IV Last administered on 03/16/17 14:57; Start 03/16/17 at 14:30; Stop 03/16/17 at 14:38; Status DC Fentanyl Citrate (Fentanyl 2ml Vial) 100 mcg 1X ONCE IV Last administered on 14:57; Start 03/16/17 at 14:30; Stop 03/16/17 at 14:38; Status DC Iohexol (Omnipaque 300 Mg/ml) 100 ml 1X ONCE IART Last administered on 14:56; Start 03/16/17 at 14:30; Stop 03/16/17 at 14:38; Status DC Lidocaine HCl 10 ml 1X ONCE IJ Last administered on 03/16/17 14:56; Start 03/16 at 14:30; Stop 03/16/17 at 14:38; Status DC Info (Do NOT chart on this entry -- for MONITORING) 1 each PRN DAILY PRN MC SEE COMMENTS; Start 03/16/17 at 14:45; Stop 03/18/17 at 14:44 Magnesium Sulfate/ Dextrose 50 ml @ 25 mls/hr 1X ONCE IV Last administered on 03/17/17 13:22; Start 03/17/17 at 11:30; Stop 03/17/17 at 13:29; Status DC Furosemide (Lasix) 40 mg DAILY PO Last administered on 03/18/17 08:22; Start at 11:30 Lisinopril (Prinivil) 2.5 mg DAILY PO ; Start 03/17/17 at 11:30; Stop 03/17/17 at 12:48; Status DC Potassium Chloride (Klor-Con) 10 meq DAILYWBKFT PO ; Start 03/17/17 at 11:30; Stop 03/17/17 at 11:30; Status DC Spironolactone (Aldactone) 25 mg DAILY PO ; Start 03/17/17 at 11:30; Stop at 12:48; Status DC Sacubitril/ Valsartan (Entresto 24 Mg-26 Mg) 1 tab BID PO Last administered on 03/18/17 08:19; Start 03/17/17 at 21:00 Potassium Chloride (Klor-Con) 10 meq DAILYWBKFT PO Last administered on 08:18; Start 03/18/17 at 08:00 Furosemide (Lasix) 40 mg 1X ONCE IVP Last administered on 03/18/17 10:05; Start 03/18/17 at 10:30; Stop 03/18/17 at 10:31; Status DC Active Scripts Active Reported Aspirin 81 Mg Tab.chew 1 Tab PO DAILY [prostate suppl] [multivitamin] [omega 3] Vitals/I & O Vital Sign - Last 24 Hours 03/17/17 03/17/17 03/17/17 03/17/17 15:00 19:26 19:30 20:49 Temp 98.1 97.4 98.1 97.4 Pulse 73 80 80 Resp 17 16 B/P (MAP) 105/75 (85) 100/62 (75) 100/62 Pulse Ox 99 97 O2 Delivery Room Air Room Air Room Air 03/17/17 03/18/17 03/18/17 03/18/17 23:00 03:11 07:00 07:56 Temp 97.8 97.8 97.5 97.8 97.8 97.5 Pulse 81 76 79 Resp 18 18 18 B/P (MAP) 107/66 (80) 99/62 (74) 105/68 (80) Pulse Ox 99 98 98 O2 Delivery Room Air Room Air Room Air Room Air 03/18/17 03/18/17 03/18/17 08:19 08:22 11:00 Temp 97.5 97.5 Pulse 76 79 79 Resp 18 B/P (MAP) 99/62 105/63 102/65 (77) Pulse Ox 97 O2 Delivery Room Air Intake and Output 503/17/17 03/18/17 15:00 23:00 07:00 Intake Total 650 ml 400 ml Output Total 751 ml 300 ml Balance -101 ml 100 ml MARCELINA LIU MD March 18, 2017 13:46
[2017-03-18] MEDS ORDERED: FURO40TA4 PO (13:49)
[2017-03-18] MEDS ORDERED: SACU1TAB PO (13:49)
[2017-03-18] MEDS ORDERED: METO25TA9 PO (13:49)
[2017-03-18] MEDS ORDERED: POTA10TA12 PO (13:49)
[2017-03-18] MEDS ORDERED: ATOR40TA59 PO (13:49)
--- NOTE | 2017-03-18 13:52 | PDOC3 ---
Discharge Summary Visit Information Date of Admission: Mar 14, 2017 Date of Discharge: March 18, 2017 Admitting Diagnosis: CHF, acute systolic Final Diagnosis 1. Acute on chronic combined systolic/diastolic CHF: NYHA 2-3. Compensated. Good tolerance with increased ambulation 2. ICM/NICM: primarily due to poor compliance. 3. CAD: CABG in the past (3VD). 03/16/17 - S/P LHC with patent 3/4 grafts with OM collateralization via RPL 4. COPD: no inhalers, optimization per PCP 5. HTN: controlled 6. HLP: LDL 217 7. Peripheral venous insufficiency/lymphedema 8. Likely SIMA Problems Medical Problems: (1) CHF exacerbation Status: Acute Brief Hospital Course Allergies Allergies Coded Allergies Type Severity Reaction Last Updated Verified No Known Drug Allergies 03/14/17 No Vital Signs Vital Signs Date Time Temp Pulse Resp B/P (MAP) Pulse Ox O2 Delivery O2 Flow Rate FiO2 03/18/17 11:00 97.5 79 18 102/65 (77) 97 Room Air 97.5 Lab Results Laboratory Tests Test 03/17/17 04:10 03/18/17 03:00 White Blood Count 4.6 x10^3/uL (4.0-11.0) 5.4 x10^3/uL (4.0-11.0) Red Blood Count 4.08 x10^6/uL (4.30-5.70) 4.25 x10^6/uL (4.30-5.70) Hemoglobin 13.0 g/dL (13.0-17.5) 13.2 g/dL (13.0-17.5) Hematocrit 38.2 % (39.0-53.0) 40.3 % (39.0-53.0) Mean Corpuscular Volume 94 fL (79-100) 95 fL (79-100) Mean Corpuscular Hemoglobin 32 pg (25-35) 31 pg (25-35) Mean Corpuscular Hemoglobin Concent 34 g/dL (31-37) 33 g/dL (31-37) Red Cell Distribution Width 15.8 % (11.5-14.5) 15.8 % (11.5-14.5) Platelet Count 249 x10^3/uL (140-400) 245 x10^3/uL (140-400) Neutrophils (%) (Auto) 47 % (31-73) 52 % (31-73) Lymphocytes (%) (Auto) 38 % (24-48) 34 % (24-48) Monocytes (%) (Auto) 14 % (0-9) 13 % (0-9) Eosinophils (%) (Auto) 1 % (0-3) 1 % (0-3) Basophils (%) (Auto) 1 % (0-3) 1 % (0-3) Neutrophils # (Auto) 2.1 x10^3uL (1.8-7.7) 2.8 x10^3uL (1.8-7.7) Lymphocytes # (Auto) 1.7 x10^3/uL (1.0-4.8) 1.9 x10^3/uL (1.0-4.8) Monocytes # (Auto) 0.6 x10^3/uL (0.0-1.1) 0.7 x10^3/uL (0.0-1.1) Eosinophils # (Auto) 0.1 x10^3/uL (0.0-0.7) 0.1 x10^3/uL (0.0-0.7) Basophils # (Auto) 0.0 x10^3/uL (0.0-0.2) 0.0 x10^3/uL (0.0-0.2) Sodium Level 140 mmol/L (136-145) 139 mmol/L (136-145) Potassium Level 4.0 mmol/L (3.5-5.1) 4.1 mmol/L (3.5-5.1) Chloride Level 105 mmol/L (98-107) 104 mmol/L (98-107) Carbon Dioxide Level 30 mmol/L (21-32) 30 mmol/L (21-32) Anion Gap 5 (6-14) 5 (6-14) Blood Urea Nitrogen 15 mg/dL (8-26) 17 mg/dL (8-26) Creatinine 1.2 mg/dL (0.7-1.3) 1.1 mg/dL (0.7-1.3) Estimated GFR (Cockcroft-Gault) 72.9 80.5 Glucose Level 91 mg/dL (70-99) 101 mg/dL (70-99) Calcium Level 8.8 mg/dL (8.5-10.1) 8.7 mg/dL (8.5-10.1) Magnesium Level 1.7 mg/dL (1.8-2.4) 1.9 mg/dL (1.8-2.4) Laboratory Tests Test 03/18/17 03:00 White Blood Count 5.4 x10^3/uL (4.0-11.0) Red Blood Count 4.25 x10^6/uL (4.30-5.70) Hemoglobin 13.2 g/dL (13.0-17.5) Hematocrit 40.3 % (39.0-53.0) Mean Corpuscular Volume 95 fL (79-100) Mean Corpuscular Hemoglobin 31 pg (25-35) Mean Corpuscular Hemoglobin Concent 33 g/dL (31-37) Red Cell Distribution Width 15.8 % (11.5-14.5) Platelet Count 245 x10^3/uL (140-400) Neutrophils (%) (Auto) 52 % (31-73) Lymphocytes (%) (Auto) 34 % (24-48) Monocytes (%) (Auto) 13 % (0-9) Eosinophils (%) (Auto) 1 % (0-3) Basophils (%) (Auto) 1 % (0-3) Neutrophils # (Auto) 2.8 x10^3uL (1.8-7.7) Lymphocytes # (Auto) 1.9 x10^3/uL (1.0-4.8) Monocytes # (Auto) 0.7 x10^3/uL (0.0-1.1) Eosinophils # (Auto) 0.1 x10^3/uL (0.0-0.7) Basophils # (Auto) 0.0 x10^3/uL (0.0-0.2) Sodium Level 139 mmol/L (136-145) Potassium Level 4.1 mmol/L (3.5-5.1) Chloride Level 104 mmol/L (98-107) Carbon Dioxide Level 30 mmol/L (21-32) Anion Gap 5 (6-14) Blood Urea Nitrogen 17 mg/dL (8-26) Creatinine 1.1 mg/dL (0.7-1.3) Estimated GFR (Cockcroft-Gault) 80.5 Glucose Level 101 mg/dL (70-99) Calcium Level 8.7 mg/dL (8.5-10.1) Magnesium Level 1.9 mg/dL (1.8-2.4) Brief Hospital Course Mr. Mcmanus is a 66 old male, admit with dyspnea, edema, weight gain, anasarca , acute systolic CHF aggressive IV lasix better contr rehab sent home with life vent TTE in 3 months and note if [employer]-D is warranted Outpt SIMA workup fluid restrictions 2 L, Outpt CHF therapy, he would prefer outpatient, declined home health Discharge Information Condition at Discharge: Improved Follow Up: Weeks Disposition/Orders: D/C to Home Scheduled Aspirin (Aspirin), 1 TAB PO DAILY, (Reported) Miscellaneous Medications [multivitamin], (Reported) [omega 3], (Reported) [prostate suppl], (Reported) Patient Instructions Patient Instructions new meds metoprolol XL 25 d entrensto , samples given Lasix 40 daily KCL 10 daily Atorvasstatin 80 daily CV rehab MARCELINA LIU MD March 18, 2017 13:52
[2017-03-18] MEDS: ENOXAPARIN 40 MG/0.4 ML SYRINGE. SQ SCH (14:59)
== END 2017-03-18 17:10 | disposition home or self-care (01) | DRG 286 ==
LOC: ER 08:05 → 2 SOUTH 09:20
PROVIDERS: ADMIT Internal Medicine; ATTEND Internal Medicine
PROC: 4A023N7 Measurement of Cardiac Sampling and Pressure, Left Heart, Percutaneous Approach (ICD-10-PCS; principal; 2017-03-16)
PROC: B2121ZZ Fluoroscopy of Single Coronary Artery Bypass Graft using Low Osmolar Contrast (ICD-10-PCS; 2017-03-16)
PROC: B2151ZZ Fluoroscopy of Left Heart using Low Osmolar Contrast (ICD-10-PCS; 2017-03-16)
PROC: B2111ZZ Fluoroscopy of Multiple Coronary Arteries using Low Osmolar Contrast (ICD-10-PCS; 2017-03-16)
DX: I25.10 Atherosclerotic heart disease of native coronary artery without angina pectoris (principal); I50.43 Acute on chronic combined systolic (congestive) and diastolic (congestive) heart failure; J44.1 Chronic obstructive pulmonary disease with (acute) exacerbation; I11.0 Hypertensive heart disease with heart failure; I42.9 Cardiomyopathy, unspecified; E78.5 Hyperlipidemia, unspecified; G47.33 Obstructive sleep apnea (adult) (pediatric); I87.2 Venous insufficiency (chronic) (peripheral); I89.0 Lymphedema, not elsewhere classified; Z95.1 Presence of aortocoronary bypass graft
CPT/HCPCS: 36415; 71010; 71020; 80048; 80061; 80076; 83735; 83880; 84443; 84484; 85027; 93005; 93306; 93459; 94250; 94760; 96374; C1769; C1771; C1892; G0269; J1650; J1940; J2250; J3010; J7060; Q9967; 97530; 99285-25

== ENCOUNTER 2017-06-27 07:22 | Emergency (ER) | payer MEDICARE, OTHER ==
[~2017-06-27] VITALS: Ht 182.9 cm; Wt 90.3 kg
[~2017-06-27 07:22] MED LIST: ASPI-630 PO; ATOR40TA59 PO; FURO40TA4 PO; METO25TA9 PO; POTA10TA12 PO; SACU1TAB PO; [UNRECOGNIZED DRUG - OTHER]; multivitamin; omega 3
--- NOTE | 2017-06-27 09:53 | RAD ---
Ultrasound of the right inguinal region 06/27/2017 Clinical history: Right groin bulge and pain for the last week. Technique: A real-time ultrasound examination of the right inguinal region was performed in the area of the patient's bulge. Multiple images were obtained. Findings: There is a small to moderate sized right inguinal hernia which contains peristalsing bowel loops. The hernia sac measures approximately 4.5 cm in greatest diameter. Note is made of a 1.5 cm likely reactive right inguinal lymph node. Impression: Small to moderate sized right inguinal hernia which contains peristalsing bowel loops.
[2017-06-27 10:00] VITALS: BP 130/85
--- NOTE | 2017-06-27 10:01 | PHYS DOC ---
Past Medical History Past Medical History: CAD, COPD, Hypertension Past Surgical History: Coronary Bypass Surgery, Other Additional Past Surgical Histo: HEART CATH Alcohol Use: None Drug Use: None Adult General Chief Complaint Chief Complaint: ABDOMINAL PAIN HPI HPI Patient is a 66 year old male complaining of a bulge in his right lower groin that is painful at times. This just started maybe a week or 2. Patient states " I have a big knot in my groin". Sometimes it will have a sharp pain and it is not painful at all times. It is not painful right now. In March he did present with congestive heart failure, he states he had a heart catheter and they did go through that right groin area. He did not have any problems for a couple of months after the procedure however. At that time he had presented with leg edema , they put him on water pills and he has got the water off now. He's feeling better. He also had bypass surgery in 2009. Has never had a hernia. There is no injury prior to development of this problem. Patient works for a [employer] He does quite a bit of lifting. He' s had no difficulty with working. 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 Review of Systems Review of Systems Constitutional: Denies fever or chills [] GI: Denies abdominal pain, nausea, vomiting Complains of a bulge and intermittent pain in the right inguinal area as described in history of present illness : Denies dysuria or hematuria [] Musculoskeletal: Denies back pain or joint pain [] Integument: Denies rash or skin lesions [] Allergies Allergies Allergies Coded Allergies Type Severity Reaction Last Updated Verified No Known Drug Allergies 03/14/17 No Physical Exam Physical Exam Constitutional: Well developed, well nourished, no acute distress, non-toxic appearance. Alert, mentating normally, warm and dry. HENT: Normocephalic, atraumatic, bilateral external ears normal, nose normal. [ ] Eyes: conjunctiva normal, no discharge. [] Neck: Normal range of motion, no stridor. [] Abdomen: Bowel sounds normal, soft, no tenderness, no masses, no pulsatile masses. Abdomen entirely benign. Right inguinal area: There is a small palpable nodule in the area of the previous heart catheterization which is nontender and seems benign. It may be a lymph node. There is no palpable pseudoaneurysm. Inguinal pulse is normal. More medially, there is a palpable fullness. I do not palpate a hernia deficit, but that fullness may be inguinal hernia. It is not tender. Skin: Warm, dry, no erythema, no rash. [] Extremities: No tenderness, no cyanosis, no clubbing, ROM intact, trace edema. [ ] Neurologic: Alert and oriented X 3, normal motor function, normal sensory function, no focal deficits noted. [] Current Patient Data Vital Signs Vital Signs Date Time Temp Pulse Resp B/P (MAP) Pulse Ox O2 Delivery O2 Flow Rate FiO2 06/27/17 10:00 71 20 130/85 (100) 96 Room Air 06/27/17 07:41 97.5 97.5 EKG EKG [] Radiology/Procedures Radiology/Procedures Ultrasound of the right inguinal area done and read by the radiologist. Positive for right inguinal hernia with likely intestinal contents. [] Course & Med Decision Making Course & Med Decision Making Pertinent Labs and Imaging studies reviewed. (See chart for details) 66-year-old male presents with a relatively recent onset of a bulge in the right lower groin with occasional discomfort in that area. It does appear that he has a right inguinal hernia. There is no evidence of strangulation or incarceration. He is stable for discharge. I impressed upon the patient the importance of seeing a general surgeon as an outpatient soon to get this hernia taken care of, discussed possible complications and reasons for return. See instructions for plan. [] Dragon Disclaimer Dragon Disclaimer This electronic medical record was generated, in whole or in part, using a voice recognition dictation system. Departure Departure Impression: Primary Impression: Right inguinal hernia Disposition: 01 HOME, SELF-CARE Condition: STABLE Referrals: NO PCP (PCP) LISA CUEVAS MD, KIMBERLY D MD Patient Instructions: Inguinal Hernia, Adult Additional Instructions: The bulging area is caused by a hernia. It's important to see a surgeon and make arrangements to gait your hernia repaired, because it's possible that you may develop a complication where your intestines came get "stuck" in the hernia which can cause blood flow to be cut off and that would be an emergency. Call tomorrow for appointment, see referrals that you were given. If you do have more severe pain in the hernia area, or vomiting, return to emergency right away. RUSS HILL MD Jun 27, 2017 10:01
== END 2017-06-27 10:09 | disposition home or self-care (01) ==
LOC: ER 07:22
DX: K40.90 Unilateral inguinal hernia, without obstruction or gangrene, not specified as recurrent (principal); I25.10 Atherosclerotic heart disease of native coronary artery without angina pectoris; J44.9 Chronic obstructive pulmonary disease, unspecified; I11.0 Hypertensive heart disease with heart failure; I50.9 Heart failure, unspecified; Z95.1 Presence of aortocoronary bypass graft
CPT/HCPCS: 76705; 99284-25

== ENCOUNTER → 2017-07-07 | Outpatient (CLI) | payer MEDICARE, OTHER ==
[2017-06-27 10:00] VITALS: BP 130/85
--- NOTE | 2017-07-06 22:01 | HP ---
ADMIT DATE: HISTORY OF PRESENT ILLNESS: The patient is referred because of right inguinal mass. Apparently, he has had a CT scan and went to the Emergency Room about a week ago and had inguinal hernia. He states he has noticed this coming out for about a week or more. Otherwise, he is doing relatively well. PAST MEDICAL HISTORY: Shows he has hypertension and heart disease and takes medicine for the same. He did have a heart failure as of March of this year. He was treated with medicine and now he is back to normal. In 2009, he had four artery bypass surgery for heart disease. He has done well since then. ALLERGIES: He has no allergies. PAST SURGICAL HISTORY: No other surgeries. SOCIAL HISTORY: Shows that the patient does not smoke, drink or use drugs though he used to as of about 10 to 15 years ago. FAMILY HISTORY: Noncontributory. REVIEW OF SYSTEMS: Negative except for this mass in the right groin. PHYSICAL EXAMINATION: GENERAL: Shows an alert male in no acute distress. HEAD, EYES, EARS, NOSE AND THROAT: Grossly normal. CHEST: Clear bilaterally to auscultation. HEART: Had a rate estimated to be at 75 beats per minute and was regular. No murmurs were noted. I do not find any irregular heart beat at this point. ABDOMEN: Grossly normal. EXTREMITIES: Grossly normal. The groin showed a mass, which was partially reducible on the right side. It was not particularly tender and did increase when he stood up or cough. The left side was negative. IMPRESSION: 1. Arteriosclerotic heart disease. 2. Hypertension. 3. Right inguinal hernia. FELICIA MCBRIDE MD DR: ROB/shayne JOB#: [id number] / [id number]
--- NOTE | 2017-07-07 10:32 | CARD ---
APPROVED REPORT EXAM: Two-dimensional and M-mode echocardiogram with Doppler and color Doppler. Other Information Quality : Average Rhythm : NSR with pvc's INDICATION Cardiomyopathy 2D DIMENSIONS RVDd3.2 (2.9-3.5cm)Left Atrium(2D)5.1 (1.6-4.0cm) IVSd1.3 (0.7-1.1cm)Aortic Root(2D)2.9 (2.0-3.7cm) LVDd6.7 (3.9-5.9cm)LVOT Diameter2.2 (1.8-2.4cm) PWd1.3 (0.7-1.1cm)LVDs5.8 (2.5-4.0cm) SV62.5 mlLVEF(%)22.1 (>50%) Aortic Valve AoV Peak Brandt.127.9cm/sAoV VTI21.4cm AO Peak GR.6.5mmHgLVOT Peak Brandt.77.8cm/s LVOT VTI 14.48cmAO Mean GR.3mmHg NERY (VMAX)2.94fe8ZTD (VTI)2.53cm2 Mitral Valve MV E Lkcjzpuw192.9cm/sMV DECEL PKZQ628on MV A Mdqpwvlc74.5cm/sMV UOD12ya E/A Ratio1.8MV A Ovptlwqx06bi MVA (PHT)5.38cm2 TDI E/Lateral E'9.5E/Medial E'20.3 Pulmonary Valve RVOT VTI11.0cm Tricuspid Valve TR P. Nfsknvxv135ed/sRAP JLMHKBFN7uaHm TR Peak Gr.67xmRvSADN63ydOh Pulmonary Vein S1 Hkxszwti99.0cm/sD2 Qiqaqhze92.7cm/s LEFT VENTRICLE The Left Ventricle is severely dilated. There is borderline to mild concentric left ventricular hyper trophy. Left ventricle systolic function is severely impaired. The Ejection Fraction is 20-25%. There is severe global hypokinesis of the left ventricle. Tissue Doppler imaging reveals moderate left vishal tricular diastolic dysfunction. There is no ventricular septal defect visualized. RIGHT VENTRICLE The right ventricle is normal size. The right ventricular systolic function is normal. ATRIA The left atrium is severely dilated. The right atrium size is normal. The interatrial septum is intac t with no evidence for an atrial septal defect or patent foramen ovale as noted on 2-D or Doppler damaris ging. AORTIC VALVE The aortic valve is mildly calcified. The aortic valve is trileaflet. Doppler and Color Flow revealed no significant aortic regurgitation. There is no significant aortic valvular stenosis. MITRAL VALVE The mitral valve leaflets are thickened. There is no mitral valve stenosis. Doppler and Color Flow re vealed moderate mitral regurgitation. TRICUSPID VALVE The tricuspid valve is normal in structure and function. Doppler and Color Flow revealed mild to mode rate tricuspid regurgitation. The PA pressure was estimated at 59 mmHg. There is no tricuspid valve s tenosis. PULMONIC VALVE The pulmonic valve is not well visualized. Doppler and Color Flow revealed trace pulmonic valvular re gurgitation. There is no pulmonic valvular stenosis. GREAT VESSELS The aortic root is normal in size. The ascending aorta is normal in size. The IVC is normal in size a nd collapses >50% with inspiration. PERICARDIAL EFFUSION There is no evidence of significant pericardial effusion. Critical Notification Critical Value: No <Conclusion> Left ventricle systolic function is severely impaired. The Ejection Fraction is 20-25%. There is severe global hypokinesis of the left ventricle. Tissue Doppler imaging reveals moderate left ventricular diastolic dysfunction. Doppler and Color Flow revealed moderate mitral regurgitation. Doppler and Color Flow revealed mild to moderate tricuspid regurgitation. The PA pressure was estimat ed at 59 mmHg.
== END | disposition home or self-care (01) ==
LOC: ECHO 08:23
PROVIDERS: ATTEND Internal Medicine Cardiovascular Disease
DX: I08.1 Rheumatic disorders of both mitral and tricuspid valves (principal); I25.10 Atherosclerotic heart disease of native coronary artery without angina pectoris; I25.5 Ischemic cardiomyopathy; I10 Essential (primary) hypertension; K40.90 Unilateral inguinal hernia, without obstruction or gangrene, not specified as recurrent
CPT/HCPCS: 93306

== ENCOUNTER 2017-08-30 06:22 | Inpatient (IN) | payer OTHER ==
[2017-08-30] VITALS (9 sets, daily range): BP systolic 102–150; BP diastolic 63–116
[~2017-08-30] VITALS: Ht 182.9 cm; Wt 89.8 kg
[~2017-08-30 06:22] MED LIST changes: +HYDROmorphone 2 MG/ML VIAL IV PRN; +IV RINGERS,LACTATED 1000ML 1,000 ML IV SCH; +LIDOCAINE 1% PF 2 ML VIAL. ID PRN; +METO-239 PO; -METO25TA9 PO; +MIDAZOLAM HCL/PF 2 MG/2 ML VIAL. ONE; +MORPHINE SULFATE 2 MG/ML DISP.SYRIN. IV PRN; +ONDANSETRON PF 4 MG/2 ML VIAL. IV PRN; +PROCHLORPERAZINE 10 MG/2 ML VIAL. IV PRN; +PROPOFOL 0 ML IV ONE; +fentaNYL PF VIAL 100 MCG/2 ML VIAL IV PRN; +fentaNYL PF VIAL 100 MCG/2 ML VIAL ONE
[2017-08-30] MEDS ORDERED: PROPOFOL 100 ML IV ONE (06:37)
[2017-08-30] MEDS ORDERED: LIDOCAINE 1% PF 2 ML VIAL. ID PRN (07:00)
[2017-08-30] MEDS ORDERED: ONDANSETRON PF 4 MG/2 ML VIAL. IV PRN (07:00)
[2017-08-30] MEDS ORDERED: MORPHINE SULFATE 2 MG/ML DISP.SYRIN. IV PRN (07:00)
[2017-08-30] MEDS ORDERED: PROCHLORPERAZINE 10 MG/2 ML VIAL. IV PRN (07:00)
[2017-08-30] MEDS ORDERED: BACITRACIN 50,000 UNIT in IV NORMAL SALINE 250ML 250 ML IRR ONE (07:00)
[2017-08-30] MEDS ORDERED: IV RINGERS,LACTATED 1000ML 1,000 ML IV SCH (07:00)
[2017-08-30] MEDS ORDERED: HYDROmorphone 2 MG/ML VIAL IV PRN (07:00)
[2017-08-30] MEDS ORDERED: fentaNYL PF VIAL 100 MCG/2 ML VIAL IV PRN ×2 (07:00)
--- NOTE | 2017-08-30 07:23 | EKG ---
[facility] [address] [place] [address] Test Date: 2017-08-30 Test Time: 07:20:10 Pat Name: JOCY BOWEN Department: Room: Gender: M Crab Fisherman: MARIJA : 1950 Requested By: OMER TAVARES Order Number: [id number] Reading MD: Adolfo Cole Measurements Intervals [place] Rate: 70 P: -90 LA: 108 QRS: -56 QRSD: 134 T: 104 QT: 416 QTc: 452 Interpretive Statements SINUS RHYTHM ABNORMAL LEFT AXIS DEVIATION LEFT ANTERIOR FASCICULAR BLOCK NON SPECIFIC INTRAVENTRICULAR BLOCK ABNORMAL ECG LVH Electronically Signed On 09-13-2017 9:12:51 CDT by Adolfo Cole
[2017-08-30 07:27] LABS: CALCIUM 9.6 mg/dL (8.5-10.1); GFR 89.6; POTASSIUM 3.6 mmol/L (3.5-5.1)
[2017-08-30] MEDS ORDERED: LIDOCAINE 2%/EPI 1:100,000 20 ML VIAL. ONE (07:29)
[2017-08-30] MEDS ORDERED: IOHEXOL 300 MG/ML 100ML VIAL. ONE (07:29)
[2017-08-30 07:36] LABS: HEMATOCRIT 42.3 % (39.0-53.0); HEMOGLOBIN 14.4 g/dL (13.0-17.5); RED BLOOD COUNT 4.61 x10^6/uL (4.30-5.70); RED CELL DISTRIBUTION WIDTH 14.6 % (11.5-14.5); WHITE BLOOD COUNT 4.3 x10^3/uL (4.0-11.0)
[2017-08-30] MEDS ORDERED: fentaNYL PF VIAL 100 MCG/2 ML VIAL ONE ×2 (07:36→09:32)
[2017-08-30 07:49] LABS: PROTHROMBIN TIME PATIENT 12.5 SEC (11.7-14.0)
[2017-08-30] MEDS ORDERED: PROPOFOL 50 ML IV ONE (08:02)
[2017-08-30] MEDS ORDERED: IOHEXOL 300 MG/ML 100ML VIAL. IART ONE (10:00)
[2017-08-30] MEDS ORDERED: LIDOCAINE 2%/EPI 1:100,000 20 ML VIAL. IJ ONE (10:00)
--- NOTE | 2017-08-30 10:49 | PDOC ---
MODERATE SEDATION ASSESSMENT RISKS/ALTERNATIVES Risks/Alternatives Risks and alternatives of this type of sedation and procedure discussed with: RISK/ALTERNATIVES: Patient H & P ON CHART H & P H & P on chart and reviewed for co-morbid conditions and appropriate labs. H&P ON CHART: Yes STATUS PREG STATUS ASSESSED: N/A MEDS/ALLERGIES REVIEWED Meds/Allergies Reviewed Medications and Allergies including time and route of recently administered narcotics and sedatives. MEDS/ALLERGIES REVIEWED: Yes ASA RATING ASA RATING: II AIRWAY ASSESSMENT Airway Assessment Airway patency, oral function limitations, presence of caps, crowns, dentures, partials, and ability to extend neck assessed. AIRWAY ASSESSMENT: Yes MALLAMPATI SCORE MALLAMPATI SCORE: II PRE-SEDATION ASSESSMENT PRE-SEDATION ASSESSMENT: Yes OMER TAVARES MD Aug 30, 2017 10:49
--- NOTE | 2017-08-30 11:02 | CARD ---
APPROVED REPORT EXAM Successful [employer] biventricular ICD/BIOLOGICAL SCIENCES INSTRUCTOR-D implantation with defibrillation thresholds measurement at the time of implantation INDICATIONS Primary prevention of sudden cardiac and cardiac resynchronization therapy in a patient with Ch ronic systolic heart failure, ischemic cardiomyopathy, LVEF less than 35%,, bundle branch block/prol onged QRS interval greater than 120 ms PROCEDURE After explaining the risks, benefits, and alternative options, informed consent was obtained from the patient. The patient was brought to the cardiac catheterization lab and the left chest and shoulder were prepp ed and draped in the usual fashion. 30 mL of 2% lidocaine was infiltrated into the skin and subcutaneous tissues for local anesthesia. An incision was made over the left infraclavicular fossa and using blunt dissection and cautery a pocke t was created. Venous access was obtained in the left subclavian vein and a 10 Guinean coronary sinus sheath was inserted. Contrast injections were performed within the right atrium using CASS2 catheter and the coronary sinu s ostium was engaged. The CS sheath was then advanced into the coronary sinus and with the balloontip ped catheter inflated, venogram was obtained to identify the ideal posterolateral vein for placement of LV lead. This vein was selectively engaged with a 6 Guinean IM catheter after initial attempts to e ngage this with 4 Guinean angled glide catheter were unsuccessful. A 0.014 inch Virtual 3-D Display for Smartphones slam guide wire was advanced into the vein and subsequently over [facility] [facility] quadripolar left ventricular lead mo del 1458Q/86, serial number [id number] was positioned in the posterolateral vein under fluoroscopy [facility]. Venous access was again obtained in the left subclavian vein and 10 and 7 Guinean sheaths inserted. A [facility] [facility] bipolar active fixation right ventricular lead model 7120Q/65, serial number [id number] wa s advanced under fluoroscopy guidance and the tip was positioned in the right ventricle apex. Finally , a [employer] bipolar active fixation right atrial lead model [id number], serial number [id number] was positioned in the right atrial appendage under fluoroscopy guidance. The leads were secured into place and attached to a [facility] biventricular ICD/BIOLOGICAL SCIENCES INSTRUCTOR-D generator mode l [id number] serial #[id number]. This was placed in the pocket was subsequently closed in 3 layers. Hemos tasis was secured. Ventricle fibrillation was then induced to check the defibrillation threshold. Pat ient successfully converted to sinus rhythm with 15 J shock therapy with a shock impedance of 35 ohms . The left ventricular lead showed sensing amplitude of 29.6 mV, impedance of 1163 ohms and a threshold of 1.3 V. The right ventricular lead showed a sensing amplitude of 15.4 mV, impedance of 518 ohms an d a threshold of 0.4 V. The right atrial lead showed a sensing amplitude of 2.0 mV, impedance of 484 ohms and a threshold of 0.7 V. Patient tolerated the procedure well. There were no immediate complica tions. CONCLUSION Successful implantation of [employer] biventricular ICD/BIOLOGICAL SCIENCES INSTRUCTOR-D for primary prevention of sudden cardia c and cardiac resynchronization therapy in a patient with chronic systolic heart failure and pr olonged QRS interval. Defibrillation thresholds were measured at the time of implantation.
--- NOTE | 2017-08-30 11:23 | RAD ---
Indication: Pacemaker placement. Technique: Upright portable chest radiograph was obtained. Comparison is from March 17, 2017. Findings: Dual lead cardiac pacemaker is noted without evidence of pneumothorax. Placement is via left subclavian approach. Leads appear in position. The lungs are clear. There is no pleural effusion. The heart is enlarged. There is no definite heart failure. There are degenerative changes in the shoulders. Impression: Pacemaker placement without complication.
[2017-08-30] MEDS: SACUBITRIL/VALSARTAN 24/26MG TABLET. PO SCH (21:00)
[2017-08-30] MEDS ORDERED: ATORVASTATIN CALCIUM 40 MG TABLET. PO SCH (21:00)
[2017-08-31 03:24] VITALS: BP 110/78
[2017-08-31 07:00] VITALS: BP 119/73
[2017-08-31] MEDS ORDERED: POTASSIUM CHLORIDE 10 MEQ TABLET.ER. PO SCH (08:00)
[2017-08-31] MEDS ORDERED: ASPIRIN ENTERIC COATED 81 MG TABLET.DR. PO SCH (08:00)
--- NOTE | 2017-08-31 08:35 | RAD ---
Indication: Post pacemaker placement. Technique: Two-view chest radiograph was obtained. Comparison is from one day earlier. Findings: Dual-lead pacemaker has been placed via a left subclavian approach. No pneumothorax or pleural effusion is apparent. The heart is enlarged. There is no heart failure. There is no airspace disease. Median sternotomy wires are noted. Leads overlie the patient. Impression: Cardiomegaly.
[2017-08-31] MEDS ORDERED: FUROSEMIDE 40 MG TABLET. PO SCH (09:00)
[2017-08-31] MEDS ORDERED: METOPROLOL SUCC 24HR ER 25 MG TAB.ER.24H. PO SCH (09:00)
[2017-08-31] MEDS: SACUBITRIL/VALSARTAN 24/26MG TABLET. PO SCH (09:19)
[2017-08-31 09:20] VITALS: BP 119/73
[2017-08-31] MEDS ORDERED: POTASSIUM CHLORIDE 20 MEQ TABLET.ER. PO ONE (11:00)
--- NOTE | 2017-08-31 14:21 | PDOC3 ---
LYDIA LION PRODUCTION SUPPORT DEVELOPER 08/31/17 1421: Discharge Summary Visit Information Date of Admission: Aug 30, 2017 Date of Discharge: Aug 31, 2017 Admitting Diagnosis: Ischemic Cardiomyopathy Final Diagnosis Ischemic Cardiomyopathy Brief Hospital Course Allergies Allergies Coded Allergies Type Severity Reaction Last Updated Verified No Known Drug Allergies 08/30/17 No Vital Signs Vital Signs Date Time Temp Pulse Resp B/P (MAP) Pulse Ox O2 Delivery O2 Flow Rate FiO2 08/31/17 09:20 67 119/73 08/31/17 08:00 Room Air 08/31/17 07:00 97.5 19 99 97.5 08/30/17 10:19 4.0 Lab Results Laboratory Tests Test 08/30/17 07:00 White Blood Count 4.3 x10^3/uL (4.0-11.0) Red Blood Count 4.61 x10^6/uL (4.30-5.70) Hemoglobin 14.4 g/dL (13.0-17.5) Hematocrit 42.3 % (39.0-53.0) Mean Corpuscular Volume 92 fL (79-100) Mean Corpuscular Hemoglobin 31 pg (25-35) Mean Corpuscular Hemoglobin Concent 34 g/dL (31-37) Red Cell Distribution Width 14.6 % (11.5-14.5) Platelet Count 235 x10^3/uL (140-400) Prothrombin Time 12.5 SEC (11.7-14.0) Prothromb Time International Ratio 1.0 (0.8-1.1) Sodium Level 141 mmol/L (136-145) Potassium Level 3.6 mmol/L (3.5-5.1) Chloride Level 104 mmol/L (98-107) Carbon Dioxide Level 30 mmol/L (21-32) Anion Gap 7 (6-14) Blood Urea Nitrogen 19 mg/dL (8-26) Creatinine 1.0 mg/dL (0.7-1.3) Estimated GFR (Cockcroft-Gault) 89.6 Glucose Level 84 mg/dL (70-99) Calcium Level 9.6 mg/dL (8.5-10.1) Brief Hospital Course Mr. Mcmanus is a 67 old male, with a history of ischemic cardiomyopathy with an LVEF of 20-25%, who presented for ICD implantation in prevention of SCD. Echo noted severe LV function in March of this year. Underwent cardiac cath at that time, which revealed patent grafts and no new intervenable lesions. Medical therapy was optimized for combined systolic and diastolic heart failure. Unable to uptitrate Entresto due to low blood pressures. Repeat EF by echo in June at <35%. ICD indicated. Risks/benefits/alternatives discussed and patient consented. Patient underwent successful implantation of [employer] biventricular ICD/PUBLIC WORKS MANAGER-D for primary prevention of sudden cardiac and cardiac resynchronization therapy due to chronic systolic heart failure and prolonged QRS interval. Defibrillation thresholds were measured at the time of implantation. Patient tolerated procedure. Monitored overnight without any acute complications. Post-operative CXR WNL. Device interrogation with normal function. Left chest pectoral device implantation site without ecchymosis, erythema, or hematoma. Neurovascular status intact. Dressing removed. Incision well-approximated. Steri-strips intact. Lungs CTA. RRR. Extremities without edema. Left arm in immobilizer. Discharge instructions reviewed and patient verbalized an understanding. Patient to follow up in our office with RN for wound check in two weeks. Discharge Information Condition at Discharge: Stable Follow Up: Weeks (2) Disposition/Orders: D/C to Home Scheduled Aspirin (Aspirin), 1 TAB PO DAILY, (Reported) Atorvastatin Calcium (Atorvastatin Calcium), 80 MG PO QHS Furosemide (Furosemide), 40 MG PO DAILY Metoprolol Succinate (Metoprolol Succinate ( Xl )), 25 MG PO DAILY Potassium Chloride (Klor-Con M10), 10 MEQ PO DAILYWBKFT Sacubitril/Valsartan (Entresto 24 mg-26 mg Tablet), 1 TAB PO BID Miscellaneous Medications [multivitamin], (Reported) [omega 3], (Reported) [prostate suppl], (Reported) Patient Instructions Patient Instructions Must know & what to expect after device implant: 1. Your surgical dressing should be removed prior to discharge from the hospital, but allow the steri- strips to fall off naturally. 2. Activity restrictions: DO NOT raise arm above shoulder level, lift anything heavier than a gallon of milk, and no push or pull motions such as vacuuming/lawn mowing, no swinging motions (golf), etc for 4 weeks. 3. It is OK to use a cell phone or other electronic devices just be sure you do not store it in a breast pocket on the side where the device was placed. 4. Device will be interrogated prior to your discharge from the hospital and then every 3 months for defibrillators and every 6 months for pacemakers. You may be asked to have your device checked remotely from home as well, but this will depend on your particular physicians preference. 5. You may remove the arm immobilizer the day after device placement. Wear the arm immobilizer/splint at night (during sleep times) for 2 week to prevent unintended arm movement that can cause lead dislodgement. 6. Do not drive for one week as the task of driving may lead to unintended arm motion that may cause lead dislodgement. The seatbelt will also rub against the incision site & cause irritation. 7. It is our recommendation that you utilize Tylenol at home for pain control. You need to call our office if you are having uncontrollable pain at the incision site. 8. Keep your incision clean and dry. It is OK to shower. DO NOT submerge in bath, pool, or hot tub, until cleared by your doctor, as this could lead to increase risk of infection.. It is OK to use regular soap just do not scrub the incision site. Water spray from shower should not directly hit the incision. Be sure to blot dry not rub. 9. Inspect your incision daily. If you notice any increased redness, swelling , or drainage, or if you start running a fever, call the office immediately. The number is [phone]. 10. For women, if you need to protect against irritation from the bra straps, you can place a piece of gauze over the incision site for cushion. Please be sure to tape it loosely to allow air to the site & remove the gauze when you remove the bra. 11. Be sure to carry your device identification information card in your wallet/purse at all times. 12. It is OK to go through security at the airport with your device, but be sure to let the TSA know prior to proceeding as the security settings change depending on varying factors. Please do whatever is requested by security at that time. 13. Some of the newer devices may be MRI compatible but, currently, the use of these devices is not widespread, so you likely will not be able to have an MRI. Please clarify this with your physician. Special instructions for defibrillator patients: If your device recognizes a rhythm that requires treatment with a shock, you will most likely feel the shock. This is usually not a subtle feeling and it is uncomfortable. Please follow these steps if you receive a shock: Call the office if you receive one shock. Go to the emergency room if you receive two consecutive shocks- please have someone drive you & call 911 if nobody is available- DO NOT drive yourself. Call 911 if you receive more than 2 consecutive shocks. If at any time, you feel lightheaded or dizzy/faint, stop what you are doing & lie down immediately. If you are driving, get to the side of the road quickly, turn your car off & call 911 on your cell phone. DO NOT continue to drive as this may cause an accident that seriously injures yourself &/or others. Call the office at [phone] for any questions or concerns. OMER TAVARES MD 08/31/17 2131: Discharge Summary Brief Hospital Course Brief Hospital Course Patient seen and examined. Agree with SHREDDER PICKER's assessment and plan. s/p BiVPCD/PUBLIC WORKS MANAGER-D interrogation, doing well CXR without any pneumothorax Device interrogation normal OK for DC and follow up with our office for wound check in 2 weeks Discharge Information Scheduled Aspirin (Aspirin), 1 TAB PO DAILY, (Reported) Atorvastatin Calcium (Atorvastatin Calcium), 80 MG PO QHS Furosemide (Furosemide), 40 MG PO DAILY Metoprolol Succinate (Metoprolol Succinate ( Xl )), 25 MG PO DAILY Potassium Chloride (Klor-Con M10), 10 MEQ PO DAILYWBKFT Sacubitril/Valsartan (Entresto 24 mg-26 mg Tablet), 1 TAB PO BID Miscellaneous Medications [multivitamin], (Reported) [omega 3], (Reported) [prostate suppl], (Reported) LYDIA LION APRN Aug 31, 2017 14:21 OMER TAVARES MD Aug 31, 2017 21:31
[2017-11-17] MEDS ORDERED: HYDR-971 PO ×2 (12:08→12:09)
== END 2017-08-31 11:50 | disposition home or self-care (01) | DRG 227 ==
LOC: SURG 06:22 → 2 SOUTH 08:30 → OBSVTOIN 14:29
PROVIDERS: ADMIT Internal Medicine Cardiovascular Disease; ATTEND Internal Medicine Cardiovascular Disease
PROC: 0JH609Z Insertion of Cardiac Resynchronization Defibrillator Pulse Generator into Chest Subcutaneous Tissue and Fascia, Open Approach (ICD-10-PCS; principal; 2017-08-30)
PROC: 02HK3KZ Insertion of Defibrillator Lead into Right Ventricle, Percutaneous Approach (ICD-10-PCS; 2017-08-30)
PROC: 02H63KZ Insertion of Defibrillator Lead into Right Atrium, Percutaneous Approach (ICD-10-PCS; 2017-08-30)
PROC: 02HL3KZ Insertion of Defibrillator Lead into Left Ventricle, Percutaneous Approach (ICD-10-PCS; 2017-08-30)
DX: I25.5 Ischemic cardiomyopathy (principal); I50.40 Unspecified combined systolic (congestive) and diastolic (congestive) heart failure; I10 Essential (primary) hypertension; Z95.1 Presence of aortocoronary bypass graft; I44.0 Atrioventricular block, first degree
CPT/HCPCS: 33225; 33249; 36415; 71010; 71020; 80048; 85027; 85610; 93005; 93566; 93641; C1769; C1882; C1898; C1900; G0378; G0379; J0690; J2250; J2704; J3010; J3490; J7050; Q9967; J7030

== ENCOUNTER 2017-11-17 07:29 | Day surgery (SDC) | payer MEDICARE, OTHER ==
[~2017-11-17 07:29] MED LIST changes: -ASPI-630 PO; -ATOR40TA59 PO; -FURO40TA4 PO; +HYDROmorphone 2 MG/ML VIAL IV; -HYDROmorphone 2 MG/ML VIAL IV PRN; -IV RINGERS,LACTATED 1000ML 1,000 ML IV SCH; +LIDOCAINE 1% PF 2 ML VIAL. ID; -LIDOCAINE 1% PF 2 ML VIAL. ID PRN; -METO-239 PO; -MIDAZOLAM HCL/PF 2 MG/2 ML VIAL. ONE; +MORPHINE SULFATE 2 MG/ML DISP.SYRIN. IV; -MORPHINE SULFATE 2 MG/ML DISP.SYRIN. IV PRN; +ONDANSETRON PF 4 MG/2 ML VIAL. IV; -ONDANSETRON PF 4 MG/2 ML VIAL. IV PRN; -POTA10TA12 PO; +PROCHLORPERAZINE 10 MG/2 ML VIAL. IV; -PROCHLORPERAZINE 10 MG/2 ML VIAL. IV PRN; -PROPOFOL 0 ML IV ONE; -SACU1TAB PO; -[UNRECOGNIZED DRUG - OTHER]; +ceFAZolin 2GM PREMIX 2 GM/50 ML BAG IV; +fentaNYL PF VIAL 100 MCG/2 ML VIAL IV; -fentaNYL PF VIAL 100 MCG/2 ML VIAL IV PRN; -fentaNYL PF VIAL 100 MCG/2 ML VIAL ONE; -multivitamin; -omega 3
[2017-11-17] MEDS: IV RINGERS,LACTATED 1000ML 1,000 ML IV (08:09)
[2017-11-17] MEDS ORDERED: ROCURONIUM 50 MG/5 ML VIAL. (08:59)
[2017-11-17] MEDS ORDERED: fentaNYL PF VIAL 100 MCG/2 ML VIAL (08:59)
[2017-11-17] MEDS ORDERED: ONDANSETRON PF 4 MG/2 ML VIAL. (09:03)
[2017-11-17] MEDS ORDERED: ETOMIDATE 20 MG/10 ML VIAL. IV (09:03)
[2017-11-17] MEDS ORDERED: DESFLURANE 31 TO 60 MINUTES IH (09:03)
[2017-11-17] MEDS ORDERED: DEXAMETHASONE SOD PHOS 20 MG/5 ML VIAL. (09:03)
[2017-11-17] MEDS ORDERED: LIDOCAINE 2% PF Vial for OR 5 ML VIAL. ×2 (09:03→10:58)
[2017-11-17] MEDS ORDERED: PHENYLEPHRINE in 0.9% NACL PF 1 MG/10 ML SYRINGE. IV (09:04)
[2017-11-17] MEDS: BUPIVAC MPF-EPI 0.5%-1:200000 30 ML VIAL. (09:47)
[2017-11-17] MEDS: BUPIVAC MPF-EPI 0.5%-1:200000 30 ML VIAL. INJ (09:47)
[2017-11-17] MEDS ORDERED: GLYCOPYRROLATE 1 MG/5 ML VIAL. (10:47)
[2017-11-17] MEDS ORDERED: NEOSTIGMINE 10 MG/10 ML VIAL. (10:47)
[2017-11-17] MEDS ORDERED: ePHEDrine PF IN SALINE 50 MG/5 ML DISP.SYRIN IV (11:00)
[2017-11-17] MEDS ORDERED: PROPOFOL 20 ML IV (11:19)
[2017-11-17] MEDS ORDERED: HYDROcodone/APAP 5/325MG 1 TAB TABLET (12:03)
[2017-11-17] MEDS: HYDROcodone/APAP 5/325MG 1 TAB TABLET PO (12:05)
== END 2017-11-17 12:43 | disposition home or self-care (01) ==
LOC: SURG 07:29
DX: K40.30 Unilateral inguinal hernia, with obstruction, without gangrene, not specified as recurrent (principal); I11.0 Hypertensive heart disease with heart failure; I50.9 Heart failure, unspecified; E78.00 Pure hypercholesterolemia, unspecified; J44.9 Chronic obstructive pulmonary disease, unspecified; M19.90 Unspecified osteoarthritis, unspecified site; Z98.890 Other specified postprocedural states
CPT/HCPCS: 49507; A4215; C1781; J0690; J1100; J2370; J2405; J2704; J2710; J3010; J3490

== ENCOUNTER 2017-11-25 17:00 | Inpatient (IN) | payer MEDICARE ==
[2017-11-25] MEDS: IOHEXOL 300 MG/ML 100ML VIAL. IV (17:30)
[2017-11-25 17:33] LABS: ADD MAN DIFF? NO
[2017-11-25 17:34] LABS: BASO % 1 % (0-3); EOS # 0.1 x10^3/uL (0.0-0.7); EOS % 1 % (0-3); HEMATOCRIT 39.1 % (39.0-53.0); HEMOGLOBIN 13.4 g/dL (13.0-17.5); LYMPH % 39 % (24-48); MEAN CORPUSCULAR HEMOGLOBIN 32 pg (25-35); MEAN CORPUSCULAR HGB CONC 34 g/dL (31-37); MEAN CORPUSCULAR VOLUME 93 fL (79-100); MONO # 0.5 x10^3/uL (0.0-1.1); MONO % 10 % (0-9); NEUT # 2.5 x10^3uL (1.8-7.7); NEUT % 49 % (31-73); PLATELET COUNT 271 x10^3/uL (140-400); RED BLOOD COUNT 4.19 x10^6/uL (4.30-5.70); RED CELL DISTRIBUTION WIDTH 14.3 % (11.5-14.5); WHITE BLOOD COUNT 5.1 x10^3/uL (4.0-11.0)
[2017-11-25 17:44] LABS: INR 1.1 (0.8-1.1); PARTIAL THROMBOPLASTIN TIME 29 SEC (24-38); PROTHROMBIN TIME PATIENT 13.9 SEC (11.7-14.0)
[2017-11-25 17:50] LABS: ANION GAP 8 (6-14); BLOOD UREA NITROGEN 18 mg/dL (8-26); CALCIUM 8.5 mg/dL (8.5-10.1); CARBON DIOXIDE 30 mmol/L (21-32); CHLORIDE 104 mmol/L (98-107); CREATININE 1.2 mg/dL (0.7-1.3); GFR 72.6; GLUCOSE 103 mg/dL (70-99); POTASSIUM 3.9 mmol/L (3.5-5.1); SODIUM 142 mmol/L (136-145)
[2017-11-25 17:51] LABS: AGAP ISTAT 13 mmol/L (6-14); BUN ISTAT 19 mg/dL (8-26); CHLORIDE ISTAT 102 mmol/L (98-110); CREATININE ISTAT 1.2 mg/dL (0.5-1.4); GLUCOSE ISTAT 97 mg/dL (70-99); HEMATOCRIT ISTAT 38 % (37-52); HEMOGLOBIN ISTAT 12.9 g/dL (14-18); ION CA ISTAT 1.17 mmol/L (1.13-1.32); POTASSIUM ISTAT 3.8 mmol/L (3.5-5.0); SODIUM ISTAT 140 mmol/L (135-145); TOT CO2 ISTAT 30 mmol/L (23-32)
[2017-11-25 17:53] LABS: ALBUMIN 3.6 g/dL (3.4-5.0); ALK PHOS 57 U/L (46-116); ALT (SGPT) 24 U/L (16-63); AST (SGOT) 21 U/L (15-37); LIPASE 112 U/L (73-393); MAGNESIUM 1.8 mg/dL (1.8-2.4); TOTAL BILIRUBIN 0.3 mg/dL (0.2-1.0); TOTAL PROTEIN 7.2 g/dL (6.4-8.2)
[2017-11-25 17:54] LABS: POC GLUCOSE 111 mg/dL (70-99)
[2017-11-25] MEDS ORDERED: ONDANSETRON PF 4 MG/2 ML VIAL. IV (18:00)
[2017-11-25 18:01] LABS: CKMB INDEX 1.6 % (0-4); CKMB MASS 2.1 ng/mL (0.0-3.6); CREATINE KINASE 128 U/L (39-308)
[2017-11-25 18:01] LABS: NT-PRO BNP 1501 pg/mL (0-124); THYROID STIM HORMONE (TSH) 0.346 uIU/mL (0.358-3.74)
[2017-11-25] MEDS: IV NORMAL SALINE 1000ML BAG 1,000 ML IV ×2 (18:17→19:00)
[2017-11-25 18:43] LABS: DIRECT BILIRUBIN 0.1 mg/dL (0.0-0.2)
[2017-11-25] MEDS: ASPIRIN 325 MG TABLET PO (18:55)
[2017-11-26] MEDS: IV NORMAL SALINE 1000ML BAG 1,000 ML IV (03:57)
[2017-11-26] MEDS ORDERED: HYDROcodone/APAP 5/325MG 1 TAB TABLET PO ×2 (07:45)
[2017-11-26 08:58] LABS: CHOLESTEROL 218 mg/dL (0-200); HDLC 49 mg/dL (40-60); LDLC 160 mg/dL (0-100); NON-HDL CHOLESTEROL 169 mg/dL (0-129); TRIGLYCERIDES 46 mg/dL (0-150); VLDLC 9 mg/dL (0-40)
[2017-11-26] MEDS ORDERED: ACETAMINOPHEN 650 MG SUPP.RECT. PR (09:00)
[2017-11-26] MEDS ORDERED: ACETAMINOPHEN 325 MG TABLET. PO (09:00)
[2017-11-26] MEDS ORDERED: ASPIRIN 325 MG TABLET PO (09:00)
[2017-11-26 09:02] LABS: CHOLESTEROL/HDL RATIO 4.4
[2017-11-26] MEDS: SACUBITRIL/VALSARTAN 24/26MG TABLET. PO (09:45)
[2017-11-26] MEDS: METOPROLOL SUCC 24HR ER 25 MG TAB.ER.24H. PO (09:46)
[2017-11-26] MEDS: FUROSEMIDE 40 MG TABLET. PO (09:46)
[2017-11-26] MEDS: POTASSIUM CHLORIDE 10 MEQ TABLET.ER. PO (09:47)
[2017-11-26] MEDS: CLOPIDOGREL BISULFATE 75 MG TABLET PO (09:50)
[2017-11-26] MEDS: ASPIRIN CHEWABLE 81 MG TABLET. PO (09:50)
[2017-11-26] MEDS: ENOXAPARIN 40 MG/0.4 ML SYRINGE. SQ (09:51)
[2017-11-26 14:26] LABS: THYROXINE 7.5 ug/dL (4.5-12.0)
[2017-11-26 20:10] LABS: HEMOGLOBIN A1C 5.4 % (4.8-5.6)
[2017-11-26] MEDS ORDERED: ATORVASTATIN CALCIUM 40 MG TABLET. PO (21:00)
== END 2017-11-26 16:40 | disposition home or self-care (01) | DRG 66 ==
LOC: ER 17:00 → 6 SOUTH 17:50
PROVIDERS: Internal Medicine
DX: I63.9 Cerebral infarction, unspecified (principal); I11.0 Hypertensive heart disease with heart failure; I50.9 Heart failure, unspecified; J44.9 Chronic obstructive pulmonary disease, unspecified; E78.5 Hyperlipidemia, unspecified; I25.10 Atherosclerotic heart disease of native coronary artery without angina pectoris; I25.5 Ischemic cardiomyopathy; I65.21 Occlusion and stenosis of right carotid artery; Z79.82 Long term (current) use of aspirin; Z95.1 Presence of aortocoronary bypass graft; Z95.5 Presence of coronary angioplasty implant and graft
CPT/HCPCS: 36415; 70450; 70496; 70498; 80047; 80048; 80061; 80076; 82553; 82962; 83036; 83690; 83735; 83880; 84436; 84443; 85025; 85610; 85730; 92610-GN; 93005; 93306; 97161-GP; 97165-GO; 99285; 99285-25; G8996-CH-GN; G8997-CH-GN; G8998-CH-GN; J1650; J7030

== ENCOUNTER → 2018-11-28 | Outpatient (CLI) | payer MEDICARE ==
[2017-11-26 15:00] VITALS: BP 126/63
[~2018-11-28] MED LIST changes: +ASPI-630 PO; +ATOR40TA59 PO; +CLOP75TA PO; +FURO40TA4 PO; +HYDR-3164 PO; -HYDROmorphone 2 MG/ML VIAL IV; -LIDOCAINE 1% PF 2 ML VIAL. ID; +METO-239 PO; -MORPHINE SULFATE 2 MG/ML DISP.SYRIN. IV; -ONDANSETRON PF 4 MG/2 ML VIAL. IV; +POTA10TA12 PO; -PROCHLORPERAZINE 10 MG/2 ML VIAL. IV; +SACU1TAB PO; +[UNRECOGNIZED DRUG - OTHER]; -ceFAZolin 2GM PREMIX 2 GM/50 ML BAG IV; -fentaNYL PF VIAL 100 MCG/2 ML VIAL IV; +multivitamin; +omega 3
--- NOTE | 2018-11-28 10:08 | CARD ---
MR#: [id number] Date of Study: 11/28/2018 Ordering Physician: TABATHA CARRIZALES, Referring Physician: TABATHA CARRIZALES, Tech: Abigail Pascual [facility] APPROVED REPORT EXAM: Two-dimensional and M-mode echocardiogram with Doppler and color Doppler. Other Information Quality : GoodHR: 76bpm Rhythm : NSR INDICATION Cardiomyopathy 2D DIMENSIONS RVDd3.9 (2.9-3.5cm)Left Atrium(2D)5.1 (1.6-4.0cm) IVSd1.5 (0.7-1.1cm)Aortic Root(2D)3.6 (2.0-3.7cm) LVDd7.3 (3.9-5.9cm)LVOT Diameter2.3 (1.8-2.4cm) PWd1.4 (0.7-1.1cm)IVSs2.2 (0.8-1.2cm) LVDs6.6 (2.5-4.0cm)FS (%) 10.4 % PWs1.4 (0.8-1.2cm)SV54.8 ml LVEF(%)22.0 (>50%) M-Mode DIMENSIONS Left Atrium(MM)5.08 (2.5-4.0cm)Aortic Root3.76 (2.2-3.7cm) Aortic Valve AoV Peak Brandt.121.4cm/sAoV VTI23.9cm AO Peak GR.5.9mmHgLVOT Peak Brandt.99.5cm/s LVOT VTI 19.89cmAO Mean GR.3mmHg NERY (VMAX)2.79tn8QSN (VTI)3.37cm2 Mitral Valve MV E Yxavzori22.8cm/sMV E Peak Gr.93mmHg MV DECEL [id number] A Eicenjwx51.1cm/s MV PKD99yaA/A Ratio0.7 MVA (PHT)3.66cm2 TDI E/Lateral E'8.8E/Medial E'15.5 Pulmonary Valve PV Peak Zilniziy71.2cm/sPV Peak Grad.1mmHg Tricuspid Valve TR P. Hhezszax941rn/sRAP SEKIQVFL2nwSr TR Peak Gr.42sfAyKTWK52gaOy LEFT VENTRICLE The Left Ventricle is moderately dilated. There is mild concentric left ventricular hypertrophy. The systolic function is severely impaired. The Ejection Fraction is 20-25%. There is global hypokinesis of the left ventricle. Transmitral Doppler flow pattern is Grade I-abnormal relaxation pattern. RIGHT VENTRICLE The right ventricle is mildly dilated. There is normal right ventricular wall thickness. Systolic fun ction is mildly reduced. ATRIA The left atrium is mild to moderately dilated. The right atrium is mildly dilated. The interatrial se ptum is intact with no evidence for an atrial septal defect or patent foramen ovale as noted on 2-D o r Doppler imaging. AORTIC VALVE The aortic valve is mildly thickened. The aortic valve is trileaflet. Doppler and Color Flow revealed trace aortic regurgitation. There is no significant aortic valvular stenosis. MITRAL VALVE The mitral valve is thickened but opens well. There is no evidence of mitral valve prolapse. There is no mitral valve stenosis. Doppler and Color-flow revealed moderate mitral regurgitation. TRICUSPID VALVE The tricuspid valve is normal in structure and function. Doppler and Color Flow revealed mild tricusp id regurgitation. There is mild pulmonary hypertension. The PA pressure was estimated at 37 mmHg. The re is no tricuspid valve prolapse or vegetation. There is no tricuspid valve stenosis. PULMONIC VALVE The pulmonary valve is normal in structure and function. Doppler and Color Flow revealed trace pulmon ic valvular regurgitation. There is no pulmonic valvular stenosis. GREAT VESSELS The aortic root is normal in size. The ascending aorta is mildly dilated. The IVC is normal in size a nd collapses >50% with inspiration. PERICARDIAL EFFUSION There is no evidence of significant pericardial effusion. Critical Notification Critical Value: No <Conclusion> The Left Ventricle is moderately dilated. The systolic function is severely impaired. The Ejection Fraction is 20-25%. There is global hypokinesis of the left ventricle. There is mild concentric left ventricular hypertrophy. There is no significant aortic valvular stenosis. Doppler and Color Flow revealed trace aortic regurgitation. Doppler and Color-flow revealed moderate mitral regurgitation. Doppler and Color Flow revealed mild tricuspid regurgitation. There is mild pulmonary hypertension. The PA pressure was estimated at 37 mmHg. Signed by : Charles Velez MD Electronically Approved : 11/28/2018 10:06:15
== END | disposition home or self-care (01) ==
LOC: ECHO 08:38
PROVIDERS: ATTEND Internal Medicine Cardiovascular Disease
DX: I25.5 Ischemic cardiomyopathy (principal); I08.1 Rheumatic disorders of both mitral and tricuspid valves
CPT/HCPCS: 93306

== ENCOUNTER 2019-09-05 11:17 | Emergency (ER) | payer MEDICARE ==
[~2019-09-05] VITALS: Ht 182.9 cm; Wt 95.3 kg
--- NOTE | 2019-09-05 12:26 | PHYS DOC ---
Past Medical History Past Medical History: CAD, COPD, Hypertension (CHIRSTOPHER HARRISON APRN) Past Surgical History: Coronary Bypass Surgery, Pacemaker, Other Additional Past Surgical Histo: HEART CATH, HERNIA SURGERY LAST WEEK (CHRISTOPHER HARRISON APRN) Alcohol Use: None Drug Use: None (CHRISTOPHER HARRISON APRN) Attending Signature I have participated in the care of this patient and I have reviewed and agree with all pertinent clinical information above including history, exam, and recommendations. (BELLA ADORNO MD) Adult General Chief Complaint Chief Complaint: DENTAL PROBLEM HPI HPI Patient is a 69 year old male that presents to Emergency Department after having a dental procedure this morning. Dental procedure was at 7:30 AM. He says he left about 10:00 AM. He says that he takes Plavix and they did not realize this and pulled 2 teeth and he's been bleeding ever since. Denies any pain but is spitting up blood in room. (CHRISTOPHER HARRISON APRN) Review of Systems Review of Systems Constitutional: Denies fever or chills [] Eyes: Denies change in visual acuity, redness, or eye pain [] HENT: Reports bleeding from where he had teeth pulled this AM. Respiratory: Denies cough or shortness of breath [] Cardiovascular: No additional information not addressed in HPI [] GI: Denies abdominal pain, nausea, vomiting, bloody stools or diarrhea [] : Denies dysuria or hematuria [] Musculoskeletal: Denies back pain or joint pain [] Integument: Denies rash or skin lesions [] Neurologic: Denies headache, focal weakness or sensory changes [] Endocrine: Denies polyuria or polydipsia [] Complete systems were reviewed and found to be within normal limits, except as documented in this note. (CHRISTOPHER HARRISON APRN) Current Medications Current Medications Current Medications Medications (Trade) Dose Ordered Sig/Susu Start Time Stop Time Status Last Admin Dose Admin Tranexamic Acid (Cyklokapron) 500 mg 1X STAT 09/05/19 14:18 09/05/19 14:22 DC 09/05/19 14:18 500 MG (BELLA ADORNO MD) Allergies Allergies Allergies Coded Allergies Type Severity Reaction Last Updated Verified No Known Drug Allergies 11/17/17 No (BELLA ADORNO MD) Physical Exam Physical Exam Constitutional: Well developed, well nourished, no acute distress, non-toxic appearance. [] HENT: Normocephalic, atraumatic, bilateral external ears normal, has blood diffusely in mouth, no teeth in upper mouth, and pulled teeth # 32 and 31, no oral exudates, nose normal. [] Eyes: PERRLA, EOMI, conjunctiva normal, no discharge. [] Neck: Normal range of motion, no tenderness, supple, no stridor. [] Cardiovascular:Heart rate regular rhythm, no murmur [] Lungs & Thorax: Bilateral breath sounds clear to auscultation [] Abdomen: Bowel sounds normal, soft, no tenderness, no masses, no pulsatile masses. [] Skin: Warm, dry, no erythema, no rash. [] Back: No tenderness, no CVA tenderness. [] Extremities: No tenderness, no cyanosis, no clubbing, ROM intact, no edema. [] Neurologic: Alert and oriented X 3, normal motor function, normal sensory function, no focal deficits noted. [] Psychologic: Affect normal, judgement normal, mood normal. [] (CHRISTOPHER HARRISON APRN) Current Patient Data Vital Signs Vital Signs Date Time Temp Pulse Resp B/P (MAP) Pulse Ox O2 Delivery O2 Flow Rate FiO2 09/05/19 16:45 70 16 161/80 (107) 98 Room Air 09/05/19 11:55 97.2 97.2 (BELLA ADORNO MD) Lab Values Laboratory Tests Test 09/05/19 13:30 White Blood Count 4.7 x10^3/uL (4.0-11.0) Red Blood Count 4.32 x10^6/uL (4.30-5.70) Hemoglobin 13.0 g/dL (13.0-17.5) Hematocrit 38.4 % (39.0-53.0) L Mean Corpuscular Volume 89 fL (79-100) Mean Corpuscular Hemoglobin 30 pg (25-35) Mean Corpuscular Hemoglobin Concent 34 g/dL (31-37) Red Cell Distribution Width 14.4 % (11.5-14.5) Platelet Count 221 x10^3/uL (140-400) Neutrophils (%) (Auto) 59 % (31-73) Lymphocytes (%) (Auto) 31 % (24-48) Monocytes (%) (Auto) 9 % (0-9) Eosinophils (%) (Auto) 0 % (0-3) Basophils (%) (Auto) 1 % (0-3) Neutrophils # (Auto) 2.8 x10^3/uL (1.8-7.7) Lymphocytes # (Auto) 1.5 x10^3/uL (1.0-4.8) Monocytes # (Auto) 0.4 x10^3/uL (0.0-1.1) Eosinophils # (Auto) 0.0 x10^3/uL (0.0-0.7) Basophils # (Auto) 0.0 x10^3/uL (0.0-0.2) Prothrombin Time 13.2 SEC (11.7-14.0) Prothrombin Time INR 1.0 (0.8-1.1) Activated Partial Thromboplast Time 30 SEC (24-38) Sodium Level 146 mmol/L (136-145) H Potassium Level 4.0 mmol/L (3.5-5.1) Chloride Level 108 mmol/L (98-107) H Carbon Dioxide Level 25 mmol/L (21-32) Anion Gap 13 (6-14) Blood Urea Nitrogen 15 mg/dL (8-26) Creatinine 0.9 mg/dL (0.7-1.3) Estimated GFR (Cockcroft-Gault) 100.7 BUN/Creatinine Ratio 17 (6-20) Glucose Level 90 mg/dL (70-99) Calcium Level 9.1 mg/dL (8.5-10.1) Total Bilirubin 0.5 mg/dL (0.2-1.0) Aspartate Amino Transferase (AST) 19 U/L (15-37) Alanine Aminotransferase (ALT) 21 U/L (16-63) Alkaline Phosphatase 51 U/L (46-116) Total Protein 6.8 g/dL (6.4-8.2) Albumin 3.9 g/dL (3.4-5.0) Albumin/Globulin Ratio 1.3 (1.0-1.7) Laboratory Tests 09/05/19 13:30 Laboratory Tests 09/05/19 13:30 (BELLA ADORNO MD) Lab Values Laboratory Tests Test 09/05/19 13:30 White Blood Count 4.7 x10^3/uL (4.0-11.0) Red Blood Count 4.32 x10^6/uL (4.30-5.70) Hemoglobin 13.0 g/dL (13.0-17.5) Hematocrit 38.4 % (39.0-53.0) L Mean Corpuscular Volume 89 fL (79-100) Mean Corpuscular Hemoglobin 30 pg (25-35) Mean Corpuscular Hemoglobin Concent 34 g/dL (31-37) Red Cell Distribution Width 14.4 % (11.5-14.5) Platelet Count 221 x10^3/uL (140-400) Neutrophils (%) (Auto) 59 % (31-73) Lymphocytes (%) (Auto) 31 % (24-48) Monocytes (%) (Auto) 9 % (0-9) Eosinophils (%) (Auto) 0 % (0-3) Basophils (%) (Auto) 1 % (0-3) Neutrophils # (Auto) 2.8 x10^3/uL (1.8-7.7) Lymphocytes # (Auto) 1.5 x10^3/uL (1.0-4.8) Monocytes # (Auto) 0.4 x10^3/uL (0.0-1.1) Eosinophils # (Auto) 0.0 x10^3/uL (0.0-0.7) Basophils # (Auto) 0.0 x10^3/uL (0.0-0.2) Prothrombin Time 13.2 SEC (11.7-14.0) Prothrombin Time INR 1.0 (0.8-1.1) Activated Partial Thromboplast Time 30 SEC (24-38) Sodium Level 146 mmol/L (136-145) H Potassium Level 4.0 mmol/L (3.5-5.1) Chloride Level 108 mmol/L (98-107) H Carbon Dioxide Level 25 mmol/L (21-32) Anion Gap 13 (6-14) Blood Urea Nitrogen 15 mg/dL (8-26) Creatinine 0.9 mg/dL (0.7-1.3) Estimated GFR (Cockcroft-Gault) 100.7 BUN/Creatinine Ratio 17 (6-20) Glucose Level 90 mg/dL (70-99) Calcium Level 9.1 mg/dL (8.5-10.1) Total Bilirubin 0.5 mg/dL (0.2-1.0) Aspartate Amino Transferase (AST) 19 U/L (15-37) Alanine Aminotransferase (ALT) 21 U/L (16-63) Alkaline Phosphatase 51 U/L (46-116) Total Protein 6.8 g/dL (6.4-8.2) Albumin 3.9 g/dL (3.4-5.0) Albumin/Globulin Ratio 1.3 (1.0-1.7) Laboratory Tests 09/05/19 13:30 Laboratory Tests 09/05/19 13:30 (CHRISTOPHER HARRISON APRN) EKG EKG [] (CHRISTOPHER HARRISON APRN) Radiology/Procedures Radiology/Procedures [] (CHRISTOPHER HARRISON APRN) Course & Med Decision Making Course & Med Decision Making Pertinent Labs and Imaging studies reviewed. (See chart for details) Will order labs and order nebulized TXA 500 mg. Labs were unremarkable. Ordered a 2nd nebulized TXA treatment as bleeding had slowed but was still oozing. After the 2nd treatment bleeding has slowed considerably. It is still oozing a little bit. Discussed option with patient and offered admission to observe overnight and continue to give TXA. Patient states that he would rather go home. Will d/c home with return precautions to come back if bleeding increases again. (CHRISTOPHER HARRISON APRN) Dragon Disclaimer Dragon Disclaimer This electronic medical record was generated, in whole or in part, using a voice recognition dictation system. (CHRISTOPHER HARRISON APRN) Departure Departure Impression: Primary Impression: Surgical wound hemorrhage after dental procedure Disposition: HOME, SELF-CARE Condition: STABLE Referrals: ASHLYN TALAMANTES (PCP) Additional Instructions: Thank you for visiting [facility]. We appreciate you trusting us with your care. If any additional problems come up don't hesitate to return to visit us. Please follow up with your primary care provider so they can plan additional care if needed and know about the problem that you had. If symptoms worsen come back to the Emergency Department. Any concerning symptoms that start such as chest pain, shortness of air, weakness or numbness on one side of the body, running high fevers or any other concerning symptoms return to the ER. Please return to ER if bleeding increases or does not stop. If you start feeling dizzy please return to ER. CHRISTOPHER HARRISON APRN Sep 05, 2019 12:26 BELLA ADORNO MD Sep 08, 2019 06:15
[2019-09-05] MEDS ORDERED: TRANEXAMIC ACID 1,000 MG/10 ML VIAL. TOP ONE (12:45)
[2019-09-05 13:39] LABS: BASO % 1 % (0-3); EOS % 0 % (0-3); HEMATOCRIT 38.4 % (39.0-53.0); LYMPH # 1.5 x10^3/uL (1.0-4.8); LYMPH % 31 % (24-48); MEAN CORPUSCULAR HEMOGLOBIN 30 pg (25-35); MEAN CORPUSCULAR HGB CONC 34 g/dL (31-37); MEAN CORPUSCULAR VOLUME 89 fL (79-100); MONO # 0.4 x10^3/uL (0.0-1.1); MONO % 9 % (0-9); NEUT # 2.8 x10^3/uL (1.8-7.7); NEUT % 59 % (31-73); PLATELET COUNT 221 x10^3/uL (140-400); RED BLOOD COUNT 4.32 x10^6/uL (4.30-5.70); RED CELL DISTRIBUTION WIDTH 14.4 % (11.5-14.5); WHITE BLOOD COUNT 4.7 x10^3/uL (4.0-11.0)
[2019-09-05 13:50] LABS: PROTHROMBIN TIME PATIENT 13.2 SEC (11.7-14.0)
[2019-09-05 13:54] LABS: CALCIUM 9.1 mg/dL (8.5-10.1); CREATININE 0.9 mg/dL (0.7-1.3); GFR 100.7
[2019-09-05 14:00] LABS: ALBUMIN 3.9 g/dL (3.4-5.0); ALBUMIN/GLOBULIN RATIO 1.3 (1.0-1.7); TOTAL BILIRUBIN 0.5 mg/dL (0.2-1.0); TOTAL PROTEIN 6.8 g/dL (6.4-8.2)
[2019-09-05] MEDS ORDERED: TRANEXAMIC ACID 1,000 MG/10 ML VIAL. TOP STA (14:18)
[2019-09-05 16:45] VITALS: BP 161/80
== END 2019-09-05 17:27 | disposition home or self-care (01) ==
LOC: ER 11:17
DX: K91.840 Postprocedural hemorrhage of a digestive system organ or structure following a digestive system procedure (principal); J44.9 Chronic obstructive pulmonary disease, unspecified; I10 Essential (primary) hypertension; Z95.1 Presence of aortocoronary bypass graft; I25.10 Atherosclerotic heart disease of native coronary artery without angina pectoris; Z95.0 Presence of cardiac pacemaker
CPT/HCPCS: 36415; 80053; 85025; 85610; 85730; 94640; 99284

== ENCOUNTER → 2020-01-26 | Outpatient (CLI) | payer MEDICARE ==
--- NOTE | 2020-01-26 10:06 | CARD ---
MR#: [id number] Date of Study: 01/26/2020 Ordering Physician: TABATHA COLE, Referring Physician: TABATHA COLE, Tech: Malathi Sheehan APPROVED REPORT EXAM: Two-dimensional and M-mode echocardiogram with Doppler and color Doppler. Other Information Quality : AverageHR: 79bpm INDICATION Chest Pain Surgery/Intervention Pacemaker: CABG: Date: 2009 RISK FACTORS Hypertension Hyperlipidemia 2D DIMENSIONS Left Atrium(2D)5.8 (1.6-4.0cm)IVSd1.5 (0.7-1.1cm) Aortic Root(2D)3.4 (2.0-3.7cm)LVDd7.9 (3.9-5.9cm) LVOT Diameter2.1 (1.8-2.4cm)PWd1.3 (0.7-1.1cm) LVDs6.7 (2.5-4.0cm)FS (%) 15.2 % SV103.1 mlLVEF(%)30.9 (>50%) Aortic Valve AoV Peak Brandt.151.3cm/sAoV VTI25.0cm AO Peak GR.9.2mmHgLVOT Peak Brandt.123.4cm/s LVOT VTI 17.13cmAO Mean GR.5mmHg NERY (VMAX)2.17jr6HAQ (VTI)2.41cm2 Mitral Valve MV E Syllzons365.7cm/sMV E Peak Gr.128mmHg MV DECEL [id number] A Rfvvfedh36.3cm/s MV E Mean Gr.3mmHgMV TEU05wj E/A Ratio2.0MVA (PHT)4.76cm2 TDI E/Lateral E'21.7E/Medial E'23.1 Pulmonary Valve PV Peak Bzwzwhti416.1cm/sPV Peak Grad.4mmHg Tricuspid Valve TR P. Ntqtogis769ex/sRAP [id number] TR Peak Gr.11npKtTQFX91dhMu Pulmonary Vein S1 Zecplaec88.3cm/sD2 Rrrfrpif80.5cm/s LEFT VENTRICLE The Left Ventricle is severely dilated. There is mild to moderate concentric left ventricular hypertr ophy. The Ejection Fraction is 20%. The systolic function is severely impaired. There is severe globa l hypokinesis of the left ventricle. Transmitral Doppler flow pattern is Grade II-pseudonormal fillin g dynamics. RIGHT VENTRICLE The right ventricle is mildly dilated. There is normal right ventricular wall thickness. The right ve ntricular systolic function is normal. ATRIA The left atrium is severely dilated. The right atrium is mildly dilated. Pacemaker lead noted in the RV/RA. The interatrial septum is intact with no evidence for an atrial septal defect or patent forame n ovale as noted on 2-D or Doppler imaging. AORTIC VALVE The aortic valve is thickened but opens well. Doppler and Color Flow revealed no significant aortic r egurgitation. There is no significant aortic valvular stenosis. MITRAL VALVE The mitral valve is thickened but opens well. There is no evidence of mitral valve prolapse. Mitral v alve has a mean gradient of 3.1 mmHg. Doppler and Color-flow revealed severe eccentric mitral regurgi tation. TRICUSPID VALVE The tricuspid valve is normal in structure and function. Doppler and Color Flow revealed mild to mode rate tricuspid regurgitation with an estimated PAP of 66 mmHg. There is no tricuspid valve stenosis. PULMONIC VALVE The pulmonic valve is not well visualized. Doppler and Color Flow revealed trace to mild pulmonic tatiana vular regurgitation. There is no pulmonic valvular stenosis. GREAT VESSELS The aortic root is normal in size. The ascending aorta is normal in size. The IVC is normal in size a nd collapses >50% with inspiration. PERICARDIAL EFFUSION There is no evidence of significant pericardial effusion. Critical Notification Critical Value: No <Conclusion> The Ejection Fraction is 20%. The systolic function is severely impaired. There is severe global hypokinesis of the left ventricle. The Left Ventricle is severely dilated. Doppler and Color-flow revealed severe eccentric mitral regurgitation. Doppler and Color Flow revealed mild to moderate tricuspid regurgitation with an estimated PAP of 66 mmHg. Signed by : Tabatha Cole, Electronically Approved : 01/26/2020 10:06:35
--- NOTE | 2020-01-26 15:32 | RAD ---
Clinical Indications: CVA. History of right ICA occlusion. Hypertension. Previous GA 2009.. Exam : Carotid Duplex with Grayscale Ultrasound and Spectral and Color Doppler Analysis: PQRS Compliance Statement - Stenosis calculations for CT, MR and conventional angiography are based upon measurement of the distal ICA diameter in accordance with the NASCET methodology. Stenosis calculations for carotid ultrasound studies are derived from validated velocity criteria which are known to correlate with the NASCET methodology. Comparison study: Noncontrast head CT of 11/25/2017. Findings: The common, internal and external carotid arteries were examined by grayscale, color and spectral Doppler ultrasound. There is evidence of atherosclerotic disease but no significant stenosis in the visualized vessels, except for the right cervical internal carotid artery which is occluded. Flow in both vertebral arteries was antegrade and normal. The following are the velocities and ratios in the carotid arteries on both sides: RIGHT ICA PV: 0cm/sec RIGHT CCA PV: 112cm/sec RIGHT ICA ED: 0cm/sec RIGHT IC/CCPV: 0 RIGHT VERTEBRAL: antegrade flow RIGHT % STENOSIS: 100 percent LEFT ICA PV: 53cm/sec LEFT CCA PV: 78cm/sec LEFT ICA ED: 22cm/sec LEFT IC/CCPV: 0.84 LEFT VERTEBRAL: antegrade flow LEFT % STENOSIS: 0 percent <50% ICA Stenosis: PSV < 125cm/s (EDV < 40cm/s; SVR < 2.0) 50-69% ICA Stenosis: PSV < 125-229cm/s (EDV 40-99cm/s; SVR 2.0-3.9) >70% ICA Stenosis: PSV > 230cm/s (EDV >100cm/s; SVR >4.0) Impression: 1. Widely patent left carotid arterial system despite scattered atherosclerotic calcifications. 2. Occluded right cervical internal carotid artery. Electronically signed by: Margot Henry MD (01/26/2020 3:29 PM) [id number]
== END | disposition home or self-care (01) ==
LOC: ECHO 07:35
PROVIDERS: ATTEND Internal Medicine Cardiovascular Disease
DX: I08.8 Other rheumatic multiple valve diseases (principal); I65.23 Occlusion and stenosis of bilateral carotid arteries; I11.9 Hypertensive heart disease without heart failure
CPT/HCPCS: 93306; 93880

== ENCOUNTER → 2020-12-06 | Outpatient (CLI) | payer MEDICARE ==
[~2020-12-06] MED LIST changes: +AMIO200T6 PO; +EZET10TA20 PO; +RIVA10TA PO; +SACU1TAB7 PO; +SPIR25TA5 PO
== END ==
LOC: LAB 08:03
PROVIDERS: ATTEND Specialist
DX: Z01.812 Encounter for preprocedural laboratory examination (principal); Z20.828 Contact with and (suspected) exposure to other viral communicable diseases
CPT/HCPCS: U0003

== ENCOUNTER → 2020-12-10 | Day surgery (SDC) | payer MEDICARE ==
[~2020-12-10] MED LIST changes: +LIDOCAINE 1%/EPI 1:100,000 20 ML VIAL. INJ ONE
[2020-12-10 09:33] VITALS: BP 151/85
[2020-12-10 09:49] LABS: PROTHROMBIN TIME PATIENT 13.4 SEC (11.7-14.0)
--- NOTE | 2020-12-10 11:28 | PDOC ---
SURGICAL PROGRESS NOTE DATE: 12/10/20 TIME: 11:27 no change in dictated H&P. Vital Signs Vital Signs Date Time Temp Pulse Resp B/P (MAP) Pulse Ox O2 Delivery O2 Flow Rate FiO2 12/10/20 09:33 66 20 97 Labs Laboratory Tests Test 12/10/20 09:20 Prothrombin Time 13.4 SEC (11.7-14.0) Prothromb Time International Ratio 1.1 (0.8-1.1) Laboratory Tests Test 12/10/20 09:20 Prothrombin Time 13.4 SEC (11.7-14.0) Prothromb Time International Ratio 1.1 (0.8-1.1) Justicifation of Admission Dx: Justifications for Admission: Justification of Admission Dx: Yes FELICIA MCBRIDE MD Dec 10, 2020 11:28
--- NOTE | 2020-12-10 11:31 | PDOC ---
SURGICAL PROGRESS NOTE DATE: 12/10/20 TIME: 11:28 Op Note: Surgeon..................................................Mcbride Pre op diag..............................................tumor left forehead Opst op diag............................................same...deep Anesthesia..............................................1% lidocaine with epi Procedure...............................................excision deep mass left forehead Blood loss...............................................3cc Fluids.....................................................none Drains....................................................none Condition................................................satisfactory Vital Signs Vital Signs Date Time Temp Pulse Resp B/P (MAP) Pulse Ox O2 Delivery O2 Flow Rate FiO2 12/10/20 09:33 66 20 97 Labs Laboratory Tests Test 12/10/20 09:20 Prothrombin Time 13.4 SEC (11.7-14.0) Prothromb Time International Ratio 1.1 (0.8-1.1) Laboratory Tests Test 12/10/20 09:20 Prothrombin Time 13.4 SEC (11.7-14.0) Prothromb Time International Ratio 1.1 (0.8-1.1) Justicifation of Admission Dx: Justifications for Admission: Justification of Admission Dx: Yes FELICIA MCBRIDE MD Dec 10, 2020 11:31
--- NOTE | 2020-12-10 11:39 | DISCH ---
DISCHARGE INSTRUCTIONS Condition on Discharge Condition on Discharge: Stable Activity After Discharge Activity Instructions for Disc: No restrictions, Activity as tolerated Lifting Instructions after Dis: No heavy lifting, No pulling or pushing, Do not lift >10 pounds Exercise Instruction after Dis: Progress as tolerated Driving Instructions after Dis: Do not drive today Weight Bearing Status after Di: As tolerated Diet after Discharge Diet after Discharge: Cardiac Diet Texture: Regular Liquid Texture: Thin Liquid Swallowing Supervision: None needed Wound Incision Care Wound/Incision Care: Other, see below Other wound/incision instructi: keep dry and clean change dressin prn Checks after Discharge Checks after discharge: Check blood press - daily Follow-Up Follow up with: call Severo sifuentes for appt in 7 days Treatment/Equipment after DC Adaptive Equipment Issued: None FELICIA SIFUENTES MD Dec 10, 2020 11:39
--- NOTE | 2020-12-10 15:18 | PREOP HP ---
DATE OF SERVICE: 12/10/2020 HISTORY OF PRESENT ILLNESS: The patient is doing relatively well, has some pain in the groin area and had apparently x-ray done by his primary care doctor, which was normal. He does have a mass of the left forehead, which is about 1.5 cm in size. He states it has been getting large and it is there. He wishes to have this removed. PAST MEDICAL HISTORY: Significant and that he has had open heart surgery and also has atrial fibrillation for which he takes two, antiplatelet and Eliquis. He also has had right inguinal hernia repair that is of no consequence at this point. He has no symptoms relative to that at this point. SOCIAL HISTORY: Shows that for about 20-21 years, he has not had any alcoholic beverages, smoked or done any illicit drugs. ALLERGIES: He has no history of allergies to his knowledge. REVIEW OF SYSTEMS: Negative except for one thing not mention was that his testicles did show a large hydrocele on the right larger than the left. This may cause some of the pain and discomfort that he has been having. He knows about this. He has not had it repaired. PHYSICAL EXAMINATION: GENERAL: Shows an alert male, in no acute distress as noted before. HEAD, EYES, EARS, NOSE, AND THROAT: Normal except for 2 cm mass about a couple of centimeters above the eyebrow in the mid portion of the left forehead. It appears to be nontender and is not associated with the skin, but is minimally movable. CHEST: The lungs were clear bilaterally to auscultation. HEART: Had a regular rate, at this point, though he has had atrial fibrillation in the past. The rate was 70 beats per minute and was regular. He still has a murmur heard about a 2/6 or 1/6 systolic murmur heard at the mitral area. ABDOMEN: Soft and showed no evidence of recurrent hernia on the left or right, though he has only had surgery on the right. He has normal male genitalia with enlarged testicles, the largest one being on the left and I think this is a hydrocele. IMPRESSION: 1. Arteriosclerotic heart disease. 2. Hypertension by history for which he takes medicine. 3. Post-repair of right inguinal hernia. 4. Bilateral hydroceles. 5. Mass of the left forehead. FELICIA MCBRIDE MD DR: ROB/shayne JOB#: [id number] / [id number] BRIE
--- NOTE | 2020-12-10 19:11 | OP ---
DATE OF SURGERY: 12/10/2020 SURGEON: Mahesh Mcbride MD PREOPERATIVE DIAGNOSIS: Mass of the left forehead about an inch above the mid portion of the left eyebrow. POSTOPERATIVE DIAGNOSIS: Mass of the left forehead about an inch above the mid portion of the left eyebrow and it was deep below the fascia. ANESTHESIA: Lidocaine 1% with epinephrine. PROCEDURE: Excision deep tumor of right forehead. TECHNIQUE: Under local anesthesia, the area was properly prepped and draped in a routine fashion. We used 1% lidocaine with epinephrine. The lesion was above the eyebrow by about an inch or more and we made an incision over the mass, which was about 2 cm or more in size following the skin lines with a 15 blade. We slowly went through the skin. We got through the skin and down to the fascia, was obvious that the lesion was beneath that. We divided the fascia with Metzenbaum scissors to spread the tissues there. I got down to the mass, which was yellowish in color and fairly firm, but not rock hard. It was right down on the scalp. We anesthetized the area under the lesion and then using Metzenbaum scissors and knife, we slowly shelled it out and cut it away from its attachments, which was fairly dense to the mass. The mass itself was soft and grossly we got it completely removed. After it was completely removed, we used pressure to control the bleeding, which was not great at all. He did have a defibrillator and therefore, we did not use cautery. The bleeding was stopped. We inspected the area, all was satisfactory. We used interrupted 5-0 Vicryl to approximate the fascia and then also reapproximated the deep dermis and subcutaneous with a 5-0 Vicryl. The skin was closed using interrupted 6-0 nylon. The procedure was then terminated as sterile dressing was applied. The blood loss was probably 2-3 mL. FLUIDS: None. DRAINS: None. Condition of the patient was satisfactory as he has returned to the recovery room. MAHESH MCBRIDE MD DR: ROB/shayne JOB#: [id number] / [id number] BRIE
--- NOTE | 2021-04-08 15:01 | HP ---
ADMIT DATE: 12/10/2020 HISTORY OF PRESENT ILLNESS: The patient is known to me. He has a painful mass of the left scrotum. This has been there for some time, does not show anything, it is getting larger and wants it repaired. PAST MEDICAL HISTORY: Shows normal childhood diseases. He does have hypertension for which he takes medication for. He has had open heart surgery, 4-vessel bypass about 10-15 years ago. He is doing well with that and does take medicine for the heart, but stated to have arrhythmia, but at the time of this examination, the rate was regular. He also has had right inguinal hernia repair, which is doing well. ALLERGIES: He has no allergies. FAMILY HISTORY: Noncontributory. REVIEW OF SYSTEMS: Negative except for some pain in the left scrotum and is enlarging and also has some pain from time to time in the right groin. PHYSICAL EXAMINATION: GENERAL: Shows an alert male in no acute distress. HEENT: Grossly normal. CHEST: Clear on auscultation. HEART: Heart had a regular rate at this point of 70 beats per minute. There was a small, about I to II/ systolic murmur heard at the aortic area. It was fairly faint. ABDOMEN: Unremarkable. Scar of previous surgery with no problems and no evidence of recurrence of her hernia on the right and no inguinal hernia on the left. Examination of the penis and left and right testicle are unremarkable. The left testicle artery was swollen, could not feel the testicle due to the swelling. I think he has had this diagnosed with a hydrocele per ultrasound. IMPRESSION: 1. Hypertension. 2. Arteriosclerotic coronary artery disease. 3. Hydrocele on the left. ROB/MARINA DR: ROB/shayne TID: [id number]
== END | disposition home or self-care (01) ==
LOC: SURG 09:05
PROVIDERS: ATTEND Specialist
DX: D17.0 Benign lipomatous neoplasm of skin and subcutaneous tissue of head, face and neck (principal); R22.0 Localized swelling, mass and lump, head; I25.10 Atherosclerotic heart disease of native coronary artery without angina pectoris; E78.00 Pure hypercholesterolemia, unspecified; M19.90 Unspecified osteoarthritis, unspecified site; J44.9 Chronic obstructive pulmonary disease, unspecified; I11.0 Hypertensive heart disease with heart failure; I50.9 Heart failure, unspecified; Z79.82 Long term (current) use of aspirin; Z79.899 Other long term (current) drug therapy; Z98.890 Other specified postprocedural states; Z87.891 Personal history of nicotine dependence; Z72.89 Other problems related to lifestyle
CPT/HCPCS: 11443; 36415; 85610; 88304; J3490

== ENCOUNTER → 2021-04-29 | Outpatient (CLI) | payer MEDICARE ==
[2020-12-10 09:33] VITALS: BP 151/85
[~2021-04-29] MED LIST changes: -LIDOCAINE 1%/EPI 1:100,000 20 ML VIAL. INJ ONE
--- NOTE | 2021-04-29 17:20 | RAD ---
INDICATION: Reason: HYDROCELE / Spl. Instructions: / History: COMPARISON: None. TECHNIQUE: Grayscale, color and spectral doppler ultrasound images obtained of the scrotum. FINDINGS: Right Testicle: 48 x 30 x 29 mm. Vascular flow is identified. Left Testicle: 39 x 27 x 29 mm. Vascular flow is identified. 6 x 4 mm cyst within the right testicle. Suspected tubular ectasia. There is some heterogeneity of the testicles. Left greater than right hydrocele. Is large on the left measuring up to 106 x 67 mm. IMPRESSION: * Left greater than right hydrocele. 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 * Heterogeneity of the testicle right greater than left. Electronically signed by: Leonard Awan MD (04/29/2021 5:17 PM) [id number]
== END ==
LOC: US 12:29
PROVIDERS: ATTEND Specialist
DX: N44.2 Benign cyst of testis (principal); N43.3 Hydrocele, unspecified
CPT/HCPCS: 76870

== ENCOUNTER 2021-07-14 23:14 | Emergency (ER) | payer MEDICARE ==
[~2021-07-14] VITALS: Ht 182.9 cm; Wt 98.1 kg
[~2021-07-14 23:14] MED LIST changes: +POTA-116 PO; -POTA10TA12 PO
[2021-07-15 03:30] VITALS: BP 132/75
[2021-07-15] MEDS ORDERED: AMOX1TAB61 PO (03:36)
--- NOTE | 2021-07-15 03:37 | PHYS DOC ---
Past Medical History Past Medical History: CAD, COPD, Hypertension Past Surgical History: Coronary Bypass Surgery, Pacemaker, Other Additional Past Surgical Histo: HEART CATH, HERNIA SURGERY LAST WEEK Smoking Status: Never Smoker Alcohol Use: None Drug Use: None General Adult EDM: Chief Complaint: HEADACHE HPI: HPI: Patient is a 70 year old male with history of a left inner ear operation with Dr. Lo at [facility] who presents with left ear pain radiating into his left neck. Has been going on for the past 2 weeks. It is sharp. Feels like his hearing has gotten worse on that side. Denies fever/chills. Denies other symptoms such as fatigue, myalgias, N/V, or diarrhea. Denies worsening pain with head movement. Review of Systems: Review of Systems: Constitutional: Denies fever or chills. [] Eyes: Denies change in visual acuity. [] HENT: Left ear pain and reduced hearing on the left. [] Respiratory: Denies cough or shortness of breath. [] Cardiovascular: Denies chest pain or edema. [] GI: Denies abdominal pain, nausea, vomiting, bloody stools or diarrhea. [] : Denies dysuria. [] Musculoskeletal: Denies back pain or joint pain. [] Integument: Denies rash. [] Neurologic: Denies headache, focal weakness or sensory changes. [] Endocrine: Denies polyuria or polydipsia. [] Lymphatic: Denies swollen glands. [] Psychiatric: Denies depression or anxiety. [] Heart Score: C/O Chest Pain: No Risk Factors: Risk Factors: DM, Current or recent (<one month) smoker, HTN, HLP, family history of CAD, obesity. Risk Scores: Score 0 - 3: 2.5% MACE over next 6 weeks - Discharge Home Score 4 - 6: 20.3% MACE over next 6 weeks - Admit for Clinical Observation Score 7 - 10: 72.7% MACE over next 6 weeks - Early Invasive Strategies Allergies: Allergies: Allergies Coded Allergies Type Severity Reaction Last Updated Verified No Known Drug Allergies 12/10/20 No Physical Exam: PE: Constitutional: Well developed, well nourished, no acute distress, non-toxic appearance. [] HENT: Left external auditory canal normal. No mastoid tenderness or swelling. No left temporal tenderness to palpation. No meningismus. Left TM partially occluded by cerumen, the visible half does show evidence of purulent exudates and bulging TM. [] Eyes: PERRLA, EOMI, conjunctiva normal, no discharge. [] Neck: Normal range of motion, no tenderness, supple, no stridor. [] Cardiovascular:Heart rate regular rhythm, no murmur [] Lungs & Thorax: Bilateral breath sounds clear to auscultation [] Abdomen: Bowel sounds normal, soft, no tenderness, no masses, no pulsatile masses. [] Skin: Warm, dry, no erythema, no rash. [] Back: No tenderness, no CVA tenderness. [] Extremities: No tenderness, no cyanosis, no clubbing, ROM intact, no edema. [] Neurologic: Alert and oriented X 3, normal motor function, normal sensory function, no focal deficits noted. [] Psychologic: Affect normal, judgement normal, mood normal. [] Current Patient Data: Vital Signs: Vital Signs Date Time Temp Pulse Resp B/P (MAP) Pulse Ox O2 Delivery O2 Flow Rate FiO2 07/15/21 02:45 97.8 69 179/82 (107) 99 Room Air 97.8 EKG: EKG: [] Radiology/Procedures: Radiology/Procedures: [] Course & Med Decision Making: Course & Med Decision Making Pertinent Labs and Imaging studies reviewed. (See chart for details) Patient is 70-year-old male with a history of a left middle ear surgery done by an ENT at [facility] who presents with left sided ear pain for the past 2 weeks. Exam without evidence of otitis externa or mastoiditis. No evidence of meningitis/meningismus. He states this is not a headache, I have low suspicion for ICH or other acute intracranial process. His ear exam is concerning for left TM bulging and exudates. We will treat for otitis media. Given his surgical history will treat with a slightly broader antibiotic with Augmentin. I have asked him to call his ENTs office to schedule expedited follow-up. (He currently has an appointment for 07/28) Warren Disclaimer: Warren Disclaimer: This electronic medical record was generated, in whole or in part, using a voice recognition dictation system. Departure Departure Impression: Primary Impression: Left acute otitis media Disposition: HOME / SELF CARE / HOMELESS Condition: IMPROVED Referrals: CHRISTOPHER WHALEN MD (PCP) Additional Instructions: Mom concerned that you may have a middle ear infection. Please take antibiotics as prescribed. Please follow-up with your ENT as soon as possible. Please call their office tomorrow to see if they can move up your appointment. If you develop fever/chills, nausea/vomiting, or other new/concerning symptoms please return to the emergency department for reevaluation. Scripts Amoxicillin/Potassium Clav (AUGMENTIN 875-125 TABLET) 1 Each Tablet 1 TAB PO Q12HR for 10 Days, #20 TAB Prov: ERIN CARDONA MD 07/15/21 ERIN CARDONA MD Jul 15, 2021 03:37
== END 2021-07-15 04:04 | disposition home or self-care (01) ==
LOC: ER 23:14
DX: H66.92 Otitis media, unspecified, left ear (principal); M54.2 Cervicalgia; J44.9 Chronic obstructive pulmonary disease, unspecified; I10 Essential (primary) hypertension; I25.10 Atherosclerotic heart disease of native coronary artery without angina pectoris; Z95.1 Presence of aortocoronary bypass graft; Z95.5 Presence of coronary angioplasty implant and graft
CPT/HCPCS: 99283

== ENCOUNTER → 2021-09-23 | Outpatient (CLI) | payer MEDICARE ==
[~2021-09-23] MED LIST changes: +AMIO200T53 PO; -AMIO200T6 PO; +AMOX1TAB61 PO
--- NOTE | 2021-09-23 16:52 | RAD ---
MR#: [id number] Date of Study: 09/23/2021 Ordering Physician: TABATHA CARRIZALES, Referring Physician: TABATHA CARRIZALES, Tech: Sandi Hernandez RVT, [facility] APPROVED REPORT Patient Location: OUT-PATIENT Laterality:Bilateral Indications CVA/TIA: Doppler Spectral Velocity Analysis Right Left pCCA 71/5 cm/spCCA 86/21 cm/s mCCA 57/5 cm/smCCA 49/11 cm/s dCCA 24/8 cm/sdCCA 37/10 cm/s ECA 73/ cm/sECA 60/ cm/s pICA pICA 23/12 cm/s Bassem Bassem 57/27 cm/s dICA dICA 70/25 cm/s ICA/CCA ICA/CCA 0.81 Findings Grayscale images of the bilateral carotid vessels demonstrates moderate diffuse atherosclerosis. On the right side the internal carotid artery is occluded. There are antegrade vertebral velocities within normal range. On the left side overall 0 to less than 50% stenosis based on velocity criteria. Waveforms are consistent with heart failure and low flow state. Critical Notification Critical Value: No <Conclusion> 1. Occluded right internal carotid artery, 0 to less than 50% stenosis of the left internal carotid artery. Signed by : Tabatha Carrizales, Electronically Approved : 09/23/2021 16:52:11
--- NOTE | 2021-09-24 13:57 | CARD ---
MR#: [id number] Date of Study: 09/23/2021 Ordering Physician: TABATHA CARRIZALES, Referring Physician: TABATHA CARRIZALES, Tech: Tia Bell [facility] APPROVED REPORT EXAM: Two-dimensional and M-mode echocardiogram with Doppler and color Doppler. Other Information Quality : AverageHR: 61bpm Rhythm : NSR INDICATION Cardiomyopathy Surgery/Intervention ICD/Pacemaker: CABG: RISK FACTORS Hypertension Obesity Hyperlipidemia 2D DIMENSIONS RVDd5.8 (2.9-3.5cm)Left Atrium(2D)6.2 (1.6-4.0cm) IVSd1.3 (0.7-1.1cm)Aortic Root(2D)3.4 (2.0-3.7cm) LVDd8.1 (3.9-5.9cm)LVOT Diameter2.4 (1.8-2.4cm) PWd1.2 (0.7-1.1cm)LVDs6.9 (2.5-4.0cm) FS (%) 14.1 %SV101.7 ml Aortic Valve AoV Peak Brandt.174.5cm/sAoV VTI35.2cm AO Peak GR.12.2mmHgLVOT Peak Brandt.124.2cm/s AO Mean GR.5mmHgAVA (VMAX)3.23cm2 Mitral Valve MV E Fcuuvxfv043.3cm/sMV DECEL [id number] MV A Hjypicfl27.8cm/sE/A Ratio2.0 Pulmonary Valve PV Peak Ndvznweg97.5cm/s Tricuspid Valve TR P. Dnksigtl785yk/sTR Peak Gr.55mmHg LEFT VENTRICLE The Left Ventricle is moderately dilated. There is mild concentric left ventricular hypertrophy. LV s ystolic function is severely decreased. LV ejection fraction is estimated at 15%. There is severe christiano bal hypokinesis of the left ventricle. Transmitral Doppler flow pattern is Grade II-pseudonormal fill ing dynamics. RIGHT VENTRICLE The right ventricle is moderately dilated. There is normal right ventricular wall thickness. Systolic function is mild to moderately reduced. ATRIA The left atrium is moderately dilated. The right atrium is moderately dilated. The interatrial septum is intact with no evidence for an atrial septal defect or patent foramen ovale as noted on 2-D or Do ppler imaging. AORTIC VALVE The aortic valve is normal in structure and function. Doppler and Color Flow revealed no significant aortic regurgitation. There is no significant aortic valvular stenosis. MITRAL VALVE The mitral valve is normal in structure and function. There is no evidence of mitral valve prolapse. There is no mitral valve stenosis. Doppler and Color-flow revealed moderately severe mitral regurgita tion. TRICUSPID VALVE The tricuspid valve is normal in structure and function. Doppler and Color Flow revealed moderate tri cuspid regurgitation. Estimated PAP 60 mmHg. There is no tricuspid valve stenosis. PULMONIC VALVE The pulmonary valve is normal in structure and function. Doppler and Color Flow revealed mild pulmoni c valvular regurgitation. GREAT VESSELS The aortic root is normal in size. The ascending aorta is normal in size. The IVC is dilated and demetrio apses >50% with inspiration. PERICARDIAL EFFUSION There is no evidence of significant pericardial effusion. Critical Notification Critical Value: No <Conclusion> The Left Ventricle is moderately dilated. LV systolic function is severely decreased. LV ejection fraction is estimated at 15%. There is severe global hypokinesis of the left ventricle. There is mild concentric left ventricular hypertrophy. Doppler and Color Flow revealed no significant aortic regurgitation. There is no significant aortic valvular stenosis. Doppler and Color-flow revealed moderately severe mitral regurgitation. Doppler and Color Flow revealed moderate tricuspid regurgitation. Estimated PAP 60 mmHg. Signed by : Charles Velez MD Electronically Approved : 09/24/2021 13:57:27
== END ==
LOC: ECHO 08:43
PROVIDERS: ATTEND Internal Medicine Cardiovascular Disease
DX: I08.8 Other rheumatic multiple valve diseases (principal); I65.23 Occlusion and stenosis of bilateral carotid arteries; I25.5 Ischemic cardiomyopathy; I63.9 Cerebral infarction, unspecified; I10 Essential (primary) hypertension; E78.5 Hyperlipidemia, unspecified
CPT/HCPCS: 93306; 93880